=== PATIENT | female | born 1945 | race Caucasian/White ===

== ENCOUNTER → 2024-01-28 11:17 | Outpatient (REF) | payer OTHER, SELFPAY | LOC: HWRAD 11:17 | PROVIDERS: ATTENDING PHYSICIAN Internal Medicine Cardiovascular Disease; FAMILY PHYSICIAN Internal Medicine | DX: Z79.899 Other long term (current) drug therapy (principal); M25.511 Pain in right shoulder | CPT/HCPCS: 71046; 73030 ==

== ENCOUNTER → 2024-02-04 12:34 | Outpatient (REF) | payer OTHER, SELFPAY | LOC: HWRAD 12:34 | PROVIDERS: ATTENDING PHYSICIAN Internal Medicine | DX: M25.511 Pain in right shoulder (principal); M81.0 Age-related osteoporosis without current pathological fracture | CPT/HCPCS: 73200 ==

== ENCOUNTER 2024-02-05 14:23 | Emergency (ER) | payer OTHER, SELFPAY ==
[2024-02-05 14:29] VITALS: BP 116/50
--- NOTE | 2024-02-05 17:19 | ED.GENMED ---
History of Present Illness
General
Chief Complaint: DVT/Possible Blood Clot
Source: patient
Exam Limitations: none
Time Seen by Provider: 02/05/24 17:13
Travel History
Have you had any contact with someone who has COVID-19?: No
Do you have any symptoms of coronavirus? Fever > 100 degrees, chills, cough, shortness of breath, sore throat, loss of taste or smell, muscle aches, or headache?: No
History of Present Illness
History of Present Illness:
See MDM
Past History
Past History
ED Past Medical History: Arrthythmia, COPD, HTN, Hypercholesterolemia and Other
ED Past Surgical History: Cholecystectomy and Orthopedic
Social History
Tobacco: Non-smoker
Alcohol: None
Drug: None
Personal:
Living: half-way
Employment: Retired
Phy Exam
Physical Exam
Physical Exam:
See MDM
Course
Orders/Labs/Results
Orders:
Orders
02/05/24 14:35
Periph Venous Lwr Ext Left US [US Periph Venous LOWER Ext LT] Urgent
Comment:
Reason For Exam: redness, swelling
02/05/24 17:18
Ankle, left 3 view CR [CR Ankle - Left Min 3 Views ] Urgent
Comment:
Reason For Exam: lateral ankle pain and swelling
02/05/24 17:22
Complete Blood Count/With Diff Urgent
Comprehensive Metabolic Panel Urgent
NT-proBNP Urgent
Troponin I Urgent
Uric Acid Urgent
02/05/24 18:38
Doxycycline [Vibramycin] 100 mg PO NOW STA
Abnormal Lab Results
02/05/24
17:22
WBC 15.7 H 10^3/uL
(4.8-10.8)
RBC 3.59 L 10^6/uL
(4.20-5.40)
Hgb 10.8 L g/dL
(12.0-16.0)
Hct 34.7 L %
(37.0-47.0)
MCHC 31.1 L g/dL
(33.0-37.0)
Plt Count 638 H 10^3/uL
(130-400)
Abs Immat Gran (auto) 0.1 H 10^3/uL
(0-0.05)
Absolute Neuts (auto) 12.9 H 10^3/uL
(1.4-6.5)
Absolute Lymphs (auto) 0.9 L 10^3/uL
(1.2-3.4)
Absolute Monos (auto) 1.7 H 10^3/uL
(0.1-0.6)
Immature Gran % 0.6 H %
(0-0.5)
Neutrophils % 82.2 H %
(42.2-75.2)
Lymphocytes % 5.9 L %
(20.5-51.1)
Monocytes % 10.7 H %
(1.7-9.3)
Carbon Dioxide 33 H mmol/L
(22-30)
BUN 24 H mg/dl
(7-17)
Alkaline Phosphatase 183 H U/L
(38-126)
02/05/24 17:22
02/05/24 17:22
Vital Signs
Initial and Last Documented VS:
Initial Vital Signs
Pulse Resp BP Pulse Ox
84 20 116/50 93
02/05/24 14:02/05/24 14:02/05/24 14:02/05/24 14:29
Last Documented Vital Signs
Pulse Resp BP Pulse Ox
84 20 116/50 93
02/05/24 14:02/05/24 14:02/05/24 14:29 02/05/24 14:29
MDM/Problems Addressed
Differential Diagnosis Includes:
HPI and MDM Narrative:
78-year-old female presenting with left calf and ankle swelling. This been ongoing for the past 5 days or so. She denies trauma. She went to urgent care and was sent to the emergency department to rule out DVT.
Given the swelling and pain, will obtain ultrasound to rule out DVT. Patient claims compliance with Eliquis. Will obtain uric acid and x-ray as well.
Physical exam
General: Well appearing and non-toxic
HEENT: protecting airway
Neck: appears supple
CV: No evidence of cyanosis
Resp: No accessory muscle use
Abd: +1 pitting edema in left leg from calf to ankle. Mild erythema noted. Distal pulses intact
Extremities: No deformities
Neuro: alert
Psych: Normal affect
Skin: Intact
Problems Addressed including Acute and Chronic Conditions affecting care:
1. Left leg edema
Acuity: acute
Prognosis: stable
Details: Will obtain ultrasound rule out DVT.
Updates
Ultrasound negative for DVT. Given the leukocytosis, will treat as possible cellulitis with doxycycline. Discussed calling PCP tomorrow
Differential Diagnosis (but not limited to): DVT, congestive heart failure, cellulitis, gout
Testing considered: Blood cultures
Drug therapy (if applicable): OTC meds, please see d/c instruction regarding Rx drugs
Amount and/or Complexity of Data Reviewed
Clinical info obtained from: Patient
External data reviewed: N/A
Labs I independently reviewed (but not limited to): Leukocytosis
Radiology: Ultrasound report reviewed
X-ray independently reviewed: Ankle x-ray negative for fracture
Pulse Ox: not hypoxic
EKG independently reviewed: N/A
Blower Installer: N/A
Critical Care: N/A
Risk of Complication:
Social Determinants of health: Good social support
Discussed with other providers: N/A
Escalation of Care includes Admit/Obs: After being observed in the Emergency Department, pt stable for discharge.
Occasional wrong word or 'sound a like' substitutions may have occurred due to the inherent limitations of voice recognition software. Read the chart carefully and recognize, using context, where substitutions have occurred.
*Critical Care Note
Total Time (30-74mins, 75-104mins- exclusive of procedures): Not Applicable
ED Attending Note
-
Portions of this chart may have been created with voice recognition software.� Occasional wrong word or��sound alike� substitutions may have occurred due to the inherent limitations of voice recognition software.
Discharge Plan
Departure
Patient Disposition: Home (Routine Discharge)
Date of Disposition: 02/05/24
Time of Disposition: 18:40
Patient with high blood pressure during this ER visit?: No
Discharge Problem:
Cellulitis
Instructions: Cellulitis (Skin Infection), Adult (DC)
Prescriptions:
New
doxycycline hyclate 100 mg capsule
100 mg PO BID Qty: 20 0RF
No Action
calcium carbonate 600 MG tablet
600 mg PO DAILY
rosuvastatin 20 MG tablet
20 mg PO QPM
multivitamin with folic acid [Tab-A-Jarad] 1 TABLET tablet
1 tab PO DAILY
amiodarone [Pacerone] 200 MG tablet
200 mg PO DAILY
guaifenesin [Mucus Relief ER] 600 MG tablet extended release 12hr
1,200 mg PO [id number] PRN (Reason: cough,congestion)
pantoprazole 40 MG tablet,delayed release (DR/EC)
40 mg PO DAILY Qty: 30 0RF
metoprolol succinate 50 MG tablet extended release 24 hr
50 mg PO DAILY Qty: 30 0RF
furosemide 40 MG tablet
40 mg PO DAILY
budesonide 0.5 MG/2 ML suspension for nebulization
1 puff inhalation R BID
albuterol sulfate 1 PUFF HFA aerosol inhaler
2 puff inhalation R Q6HPRN PRN (Reason: sob)
acetaminophen [Tylenol Extra Strength] 500 MG tablet
1,000 mg PO Q8HPRN PRN (Reason: mild pain/fever)
benzonatate 100 MG capsule
200 mg PO TIDPRN PRN (Reason: cough)
melatonin 5 MG tablet
5 mg PO HSPRN PRN (Reason: sleep)
Vitamin D
1 tab PO DAILY
warfarin [Jantoven] 5 MG tablet
5 mg PO QPM Qty: 20 0RF
enoxaparin 80 MG/0.8 ML syringe
80 mg S DAILY Qty: 10 0RF
cefdinir 300 mg capsule
300 mg PO BID 10 Days Qty: 20 0RF
cephalexin 500 mg capsule
500 mg PO TID Qty: 30 0RF
Referrals:
Ebony Haynes MD [Family Provider] -
Activity Restrictions/Additional Instructions:
Watch for worsening signs of infection: fever over 100.5', increasing pain, red streaks around wound, swelling, or increasing drainage of pus. If any of these happen, return to ED promptly. Make sure that you take all your antibiotics as directed
and finish your prescription even if you feel better before the bottle is empty
Interventions
Interventions:
ED- Fall Risk Assessment Last Done: 02/05/24 17:18
*ED COVID-19 Vaccine History Last Done: 02/05/24 14:29
ED- Cardiac Assessment Last Done: 02/05/24 17:18
ED- Pulmonary Assessment Last Done: 02/05/24 17:18
ED-Peripheral Vascular Assessment Last Done: 02/05/24 17:18
Discharge Date and Time
Print Language: KHMER
[2024-02-05 17:36] LABS: % Basophils 0.3 % (0-2); % Eosinophils 0.3 % (0-6); % Immature Granulocytes 0.6 % (0-0.5); % Lymphocytes 5.9 % (20.5-51.1); % Monocytes 10.7 % (1.7-9.3); % Neutrophils 82.2 % (42.2-75.2); Absolute Basophils 0.1 10^3/uL (0-0.2); Absolute Eosinophils 0.1 10^3/uL (0-0.7); Absolute Immature Granulocytes 0.1 10^3/uL (0-0.05); Absolute Lymphocytes 0.9 10^3/uL (1.2-3.4); Absolute Monocytes 1.7 10^3/uL (0.1-0.6); Absolute Neutrophils 12.9 10^3/uL (1.4-6.5); Hematocrit 34.7 % (37.0-47.0); Hemoglobin 10.8 g/dL (12.0-16.0); Mean Corp Hgb Conc. 31.1 g/dL (33.0-37.0); Mean Corpuscular Hgb 30.1 pg (27.0-31.0); Mean Corpuscular Volume 96.7 fL (81.0-99.0); Nucleated Red Blood Cells % 0 %; Red Blood Cell Count 3.59 10^6/uL (4.20-5.40); Red Cell Dist. Width 13.7 % (11.5-14.5); White Blood Cell Count 15.7 10^3/uL (4.8-10.8)
[2024-02-05 17:49] LABS: Mean Platelet Volume 8.7 fL (7.4-10.4); Platelet Count 638 10^3/uL (130-400)
[2024-02-05 17:52] LABS: ALT (SGPT) 18 U/L (0-35); AST (SGOT) 32 U/L (14-36); Albumin 4.1 g/dl (3.5-5.0); Alkaline Phosphatase 183 U/L (38-126); Blood Urea Nitrogen 24 mg/dl (7-17); Calcium 9.3 mg/dl (8.4-10.2); Carbon Dioxide 33 mmol/L (22-30); Chloride 99 mmol/L (98-107); Glucose 98 mg/dl (70-99); Potassium 4.4 mmol/L (3.5-5.1); Sodium 140 mmol/L (135-145); Total Bilirubin 0.3 mg/dl (0.2-1.3); Total Protein 7.8 g/dl (6.3-8.2); Uric Acid 5.5 mg/dl (2.5-6.2); eGFR > 60.00
[2024-02-05 18:00] LABS: NT-proBNP 605 pg/ml; Troponin I < 0.012 ng/ml
[2024-02-05] MEDS: VIBRAMYCIN 100 MG PO (18:47)
[2024-02-05 19:02] VITALS: BP 142/74
[2024-02-05 19:08] VITALS: BP 142/74
== END 2024-02-05 19:10 | disposition home or self-care (01) ==
LOC: EMR 14:23
PROVIDERS: EMERGENCY PHYSICIAN Student in an Organized Health Care Education/Training Program; FAMILY PHYSICIAN Internal Medicine
DX: L03.116 Cellulitis of left lower limb (principal); J44.9 Chronic obstructive pulmonary disease, unspecified; I10 Essential (primary) hypertension; E78.00 Pure hypercholesterolemia, unspecified; Z90.49 Acquired absence of other specified parts of digestive tract
CPT/HCPCS: 99284; 73610; 80053; 83880; 84484; 84550; 85025; 93971

== ENCOUNTER → 2024-02-14 11:36 | Outpatient (REF) | payer OTHER, SELFPAY ==
[2024-02-14 15:56] LABS: % Basophils 0.7 % (0-2); % Eosinophils 0.3 % (0-6); % Immature Granulocytes 0.5 % (0-0.5); % Lymphocytes 5.7 % (20.5-51.1); % Monocytes 7.9 % (1.7-9.3); % Neutrophils 84.9 % (42.2-75.2); Absolute Basophils 0.1 10^3/uL (0-0.2); Absolute Immature Granulocytes 0.1 10^3/uL (0-0.05); Absolute Lymphocytes 0.8 10^3/uL (1.2-3.4); Absolute Monocytes 1.2 10^3/uL (0.1-0.6); Absolute Neutrophils 12.4 10^3/uL (1.4-6.5); Hematocrit 35.2 % (37.0-47.0); Mean Corp Hgb Conc. 31.3 g/dL (33.0-37.0); Mean Corpuscular Hgb 29.7 pg (27.0-31.0); Mean Corpuscular Volume 95.1 fL (81.0-99.0); Mean Platelet Volume 9.3 fL (7.4-10.4); Nucleated Red Blood Cells % 0 %; Platelet Count 668 10^3/uL (130-400); Red Cell Dist. Width 13.6 % (11.5-14.5); White Blood Cell Count 14.6 10^3/uL (4.8-10.8)
== END ==
LOC: HWLAB 11:36
PROVIDERS: ATTENDING PHYSICIAN Internal Medicine
DX: L03.116 Cellulitis of left lower limb (principal)
CPT/HCPCS: 36415; 85025

== ENCOUNTER → 2024-02-29 14:35 | Outpatient (REF) | payer OTHER, SELFPAY | LOC: RAD 14:35 | PROVIDERS: ATTENDING PHYSICIAN Internal Medicine | DX: M79.89 Other specified soft tissue disorders (principal) | CPT/HCPCS: 93971 ==

== ENCOUNTER → 2024-03-11 09:48 | Outpatient (REF) | payer OTHER, SELFPAY | LOC: HWRAD 09:48 | PROVIDERS: ATTENDING PHYSICIAN Internal Medicine; FAMILY PHYSICIAN Internal Medicine | DX: R60.0 Localized edema (principal) | CPT/HCPCS: 72194; Q9967 ==

== ENCOUNTER 2024-05-21 16:23 | Outpatient (RCR) | payer OTHER, SELFPAY ==
[2024-05-21 14:35] LABS: % Basophils 0.3 % (0-2); % Eosinophils 0.6 % (0-6); % Immature Granulocytes 0.2 % (0-0.5); % Lymphocytes 3.4 % (20.5-51.1); % Monocytes 7.4 % (1.7-9.3); % Neutrophils 88.1 % (42.2-75.2); Absolute Basophils 0.1 10^3/uL (0-0.2); Absolute Eosinophils 0.1 10^3/uL (0-0.7); Absolute Lymphocytes 0.5 10^3/uL (1.2-3.4); Absolute Monocytes 1.2 10^3/uL (0.1-0.6); Hematocrit 34.4 % (37.0-47.0); Hemoglobin 9.8 g/dL (12.0-16.0); Mean Corp Hgb Conc. 28.5 g/dL (33.0-37.0); Mean Corpuscular Hgb 25.7 pg (27.0-31.0); Mean Corpuscular Volume 90.3 fL (81.0-99.0); Mean Platelet Volume 9.4 fL (7.4-10.4); Platelet Count 458 10^3/uL (130-400); Red Blood Cell Count 3.81 10^6/uL (4.20-5.40); White Blood Cell Count 15.9 10^3/uL (4.8-10.8)
== END 2024-06-16 23:59 | disposition home or self-care (01) ==
LOC: OID 16:23
PROVIDERS: ATTENDING PHYSICIAN Internal Medicine Hematology & Oncology
DX: D50.0 Iron deficiency anemia secondary to blood loss (chronic) (principal); D69.3 Immune thrombocytopenic purpura; D75.838 Other thrombocytosis
CPT/HCPCS: 85025

== ENCOUNTER 2024-05-22 20:50 | Inpatient (IN) | payer OTHER, SELFPAY ==
[2024-05-22] VITALS (13 sets, daily range): BP systolic 107–139; BP diastolic 51–96; BMI 20.2; BMI 19.3
--- NOTE | 2024-05-22 16:36 | ED.GENMED ---
History of Present Illness
General
Chief Complaint: Breathing Problem
Time Seen by Provider: 05/22/24 16:22
History of Present Illness
History of Present Illness:
78-year-old female with history of bronchiectasis and COPD presents the emergency department for evaluation of gradually worsening shortness of breath. According to her family she has severe exertional dyspnea and can essentially perform 0
activities of daily living herself. She is dependent on 5 L of nasal cannula oxygen and essentially bedbound and unable to leave her home as a result of her symptoms. She reports cough is productive of clear mucus. No fevers or chills. Denies
any known weight changes or night sweats.
Past History
Past History
ED Past Medical History: Arrthythmia, COPD, HTN, Hypercholesterolemia and Other
ED Past Surgical History: Cholecystectomy and Orthopedic
Social History
Tobacco: Non-smoker
Alcohol: None
Drug: None
Personal:
Living: shelter
Employment: Retired
Review of Systems
Review of Systems
Allergies reviewed?: Yes
All Other Systems: ROS reviewed and negative except as documented in HPI and ROS
Phy Exam
Physical Exam
Physical Exam:
GEN: Well appearing, NAD, WDWN
Eyes: PERRLA, EOMs intact, no scleral icterus
HENT: NCAT, oral mucosa moist, mild JVD
Lungs: Tachypneic with pursed lip breathing. Clear upper lung ovalle, faint crackles in the bases, no obvious wheezes
Cardiac: RRR, no M/R/G, no peripheral edema. Radial pulses 2+ bilat
Abdomen: S, NT, ND, NABS, no masses or hepatosplenomegaly
Neuro: AO x 3
MSK: No gross deformity or ecchymosis. 2+ pitting edema bilateral lower extremities, right greater than left
Skin: No rashes, petechiae. Normal color, no pallor or jaundice.
Psych: Calm, cooperative, proper hygiene
Scores
Heart Failure Risk
Heart Failure Risk Score: Not Applicable
Course
Orders/Labs/Results
Orders:
Orders
05/22/24 16:27
Electrocardiogram (*1) Urgent
Reason for Study: Other
Other Reason for Exam: Respiratory Distress
EKG- Treatment ONCE
05/22/24 16:29
Complete Blood Count/With Diff Urgent
Comprehensive Metabolic Panel Urgent
Lactic Acid Stat
05/22/24 16:37
CR Chest Portable - 1 View Urgent
Comment:
Reason For Exam: SOB
Reason Study Needs to be Portable: Patient Unstable
05/22/24 16:48
COVID-19 Antigen Urgent
Source: Nasal Swab
NT-proBNP Urgent
Troponin I Urgent
Venous Blood Gas Urgent
%Oxygen/Room Air: 90
05/22/24 19:18
Furosemide [Lasix] 40 mg IV ONCE ONE
05/22/24 20:01
Admit/Transfer Patient As Directed
Co-Sign Provider:
Level of Care: Inpatient admission
Assign to:: Telemetry
Physician / Group: Herb
Diagnosis: Acute on Chronic Hypoxemic Resp Insufficiency, Bronchiectasis, CHF
Reason for Telemetry: Acute Heart Failure
Date to Stop Telemetry: 05/25/24
Time to Stop Telemetry: 11:00
Reason for Hospitalization: Acute on Chronic Hypoxemic Resp Insufficiency, Bronchiectasis, CHF
Expected length of stay greater than two midnights?: Yes
ELOS- Estimated Length of Stay in days: 4
I certify the patient meets the requirements for IP care: Yes
05/22/24 20:02
PRN Pain Medication Management As Directed
May give lesser potent ordered pain med per pt: Yes
preference::
Protocol:: Medication orders for pain may be administered in a
manner that supports deferring to patient preference
when the pt is:
- Requesting an ordered lesser potent pain medication.
Least to most potent pain medications are defined
as: acetaminophen < NSAID < tramadol < opioids
(morphine, oxycodone, hydromorphone).
- Requesting a lesser dose of the same medication IF
ORDERED.
- Requesting a less intrusive route of administration
if both routes are prescribed by the provider (PO <
IV).
05/22/24 20:03
Code Status As Directed
Resuscitation Status: Full Code
05/22/24 20:10
Procalcitonin Urgent
PCT Algorithmm Indication: Respiratory
05/22/24 20:21
US Periph Venous LOWER Ext Jan Urgent
Comment:
Reason For Exam: Swelling, h/o DVT
05/25/24 11:00
DC Protocol for Telemetry ONCE
Abnormal Lab Results
05/22/24 05/22/24
16:29 16:48
WBC 19.1 H 10^3/uL
(4.8-10.8)
RBC 3.63 L 10^6/uL
(4.20-5.40)
Hgb 9.4 L g/dL
(12.0-16.0)
Hct 31.7 L %
(37.0-47.0)
MCH 25.9 L pg
(27.0-31.0)
MCHC 29.7 L g/dL
(33.0-37.0)
RDW 19.5 H %
(11.5-14.5)
Plt Count 450 H 10^3/uL
(130-400)
Abs Immat Gran (auto) 0.2 H 10^3/uL
(0-0.05)
Absolute Neuts (auto) 16.7 H 10^3/uL
(1.4-6.5)
Absolute Lymphs (auto) 0.4 L 10^3/uL
(1.2-3.4)
Absolute Monos (auto) 1.7 H 10^3/uL
(0.1-0.6)
Immature Gran % 0.8 H %
(0-0.5)
Neutrophils % 87.6 H %
(42.2-75.2)
Lymphocytes % 2.2 L %
(20.5-51.1)
VBG pCO2 52 H mmHg
(35-48)
VBG pO2 109 H mmHg
(30-50)
VBG HCO3 33.0 H mmol/L
(22-27)
Glucose 174 H mg/dl
(70-99)
Alkaline Phosphatase 140 H U/L
(38-126)
05/22/24 16:29
05/22/24 16:29
Vital Signs
Initial and Last Documented VS:
Initial Vital Signs
Temp Pulse Resp BP Pulse Ox
99.4 F 97 24 133/51 100
05/22/24 16:15 05/22/24 16:15 05/22/24 16:15 05/22/24 16:15 05/22/24 16:15
Last Documented Vital Signs
Temp Pulse Resp BP Pulse Ox
99.4 F 118 47 120/92 98
05/22/24 16:15 05/22/24 20:18 05/22/24 20:18 05/22/24 20:18 05/22/24 20:00
MDM/Problems Addressed
MDM/Problems Addressed:
Unclear if worsening/progression of chronic disease vs pulmonary vascular congestion exacerbating COPD/bronchiectasis. She is profoundly functionally deconditioned as well. Will admit for diuresis, may need palliative consult
*Critical Care Note
Total Time (30-74mins, 75-104mins- exclusive of procedures): Not Applicable
ED Attending Note
-
Portions of this chart may have been created with voice recognition software.� Occasional wrong word or��sound alike� substitutions may have occurred due to the inherent limitations of voice recognition software.
Discharge Plan
Departure
Patient Disposition: Admit
Date of Disposition: 05/22/24
Time of Disposition: 19:21
Presentation/result/management discussed w/ accepting MD/DO: Hospitalist
Discharge Problem:
Acute CHF
Prescriptions:
No Action
calcium carbonate 600 MG tablet
600 mg PO DAILY
rosuvastatin 20 MG tablet
20 mg PO QPM
amiodarone [Pacerone] 200 MG tablet
200 mg PO DAILY
guaifenesin [Mucus Relief ER] 600 MG tablet extended release 12hr
1,200 mg PO [id number] PRN (Reason: cough,congestion)
pantoprazole 40 MG tablet,delayed release (DR/EC)
40 mg PO DAILY Qty: 30 0RF
metoprolol succinate 50 MG tablet extended release 24 hr
50 mg PO DAILY Qty: 30 0RF
furosemide 40 MG tablet
40 mg PO DAILY
benzonatate 100 MG capsule
200 mg PO TIDPRN PRN (Reason: cough)
alendronate 70 mg Tablet
70 mg PO QWEEK
diphenhydramine-acetaminophen [Tylenol PM Extra Strength] 25-500 mg Tablet
2 tab PO HS
Eliquis 5 mg Tablet
5 mg PO BID
CertaVite Senior 0.4 mg-300 mcg- 250 mcg Tablet
1 tab PO DAILY
Referrals:
Ebony Haynes MD [Family Provider] -
Interventions
Interventions:
*Risk Screen - Suicide Last Done: 05/22/24 16:15
*General Assessment Last Done: 05/22/24 16:15
*Neglect/Abuse Screening Last Done: 05/22/24 16:15
ED- Fall Risk Assessment Last Done: 05/22/24 16:15
*ED COVID-19 Vaccine History Last Done: 05/22/24 16:15
ED- Cardiac Assessment Last Done: 05/22/24 16:15
ED- Pulmonary Assessment Last Done: 05/22/24 16:15
Discharge Date and Time
Print Language: MALTESE
[2024-05-22 16:40] LABS: % Basophils 0.3 % (0-2); % Eosinophils 0.2 % (0-6); % Immature Granulocytes 0.8 % (0-0.5); % Lymphocytes 2.2 % (20.5-51.1); % Monocytes 8.9 % (1.7-9.3); % Neutrophils 87.6 % (42.2-75.2); Absolute Basophils 0.1 10^3/uL (0-0.2); Absolute Immature Granulocytes 0.2 10^3/uL (0-0.05); Absolute Lymphocytes 0.4 10^3/uL (1.2-3.4); Absolute Monocytes 1.7 10^3/uL (0.1-0.6); Absolute Neutrophils 16.7 10^3/uL (1.4-6.5); Hematocrit 31.7 % (37.0-47.0); Hemoglobin 9.4 g/dL (12.0-16.0); Mean Corp Hgb Conc. 29.7 g/dL (33.0-37.0); Mean Corpuscular Hgb 25.9 pg (27.0-31.0); Mean Corpuscular Volume 87.3 fL (81.0-99.0); Mean Platelet Volume 9.7 fL (7.4-10.4); Nucleated Red Blood Cells % 0 %; Platelet Count 450 10^3/uL (130-400); Red Blood Cell Count 3.63 10^6/uL (4.20-5.40); Red Cell Dist. Width 19.5 % (11.5-14.5); White Blood Cell Count 19.1 10^3/uL (4.8-10.8)
[2024-05-22 16:48] LABS: Lactic Acid 1.3 mmol/L (0.7-2.0)
[2024-05-22 16:51] LABS: ALT (SGPT) 15 U/L (0-35); AST (SGOT) 32 U/L (14-36); Albumin 3.9 g/dl (3.5-5.0); Alkaline Phosphatase 140 U/L (38-126); Blood Urea Nitrogen 17 mg/dl (7-17); Carbon Dioxide 28 mmol/L (22-30); Chloride 100 mmol/L (98-107); Estimated Creatinine Clearance 61 ml/min; Glucose 174 mg/dl (70-99); Sodium 143 mmol/L (135-145); Total Bilirubin 0.5 mg/dl (0.2-1.3); Total Protein 7.2 g/dl (6.3-8.2); eGFR > 60.00
[2024-05-22 17:14] LABS: Venous Blood Gas B.E. 7.3 mmol/L (-4 to +4); Venous Blood Gas O2 Sat % 99.8 %; Venous Blood Gas pCO2 52 mmHg (35-48); Venous Blood Gas pH 7.41 (7.32-7.43); Venous Blood Gas pO2 109 mmHg (30-50)
[2024-05-22 17:17] LABS: COVID-19 Antigen Negative (Negative)
[2024-05-22 17:30] LABS: NT-proBNP 2490 pg/ml; Troponin I < 0.012 ng/ml
[2024-05-22] MEDS: LASIX 40 MG IV (19:38)
--- NOTE | 2024-05-22 19:40 | PHANOTE ---
med rec tech(05/22/24)-Patient and family at bedside unable to confirm medications, went to go home and get a booklet of medication information. Will try to check back in an hour, in the meantime list compiled from [facility] records, pharmacy records, and
patient's limited recollection.
--- NOTE | 2024-05-22 20:06 | HPS.HSE ---
Family Physician
-
Family Physician: Ebony Haynes
Chief Complaint
-
SOB
History of Present Illness
Patient is a 78y F with PMH significant for bronchiectasis and chronic hypoxemic respiratory insufficiency who presents to ED complaining of worsening SOB. History obtained from patient and her son at the bedside. Patient states that she has
been on home O2 for about 3 years. She notes that she wears 5 lpm essentially at all times. She has chronic cough productive of small amounts of white / yellow mucus. She denies any fevers / chills, chest pain, etc.
Patient recently was seen by Hematology and has received iron infusions twice over the past 3 weeks. She feels that she has been significantly more SOB following each of these infusions.
Her most recent iron infusion was yesterday and today she presents to the ED for further evaluation.
Son provides additional insight in that patient has been significantly declining over a period of about 5 years. She sleeps poorly due to cough and - as a result - sits upright in a chair 24 hours a day.
She is extremely sedentary and does not leave the home.
She does not follow with a Automated Process Operator. Son states she was supposed to see one about a year ago, but she did not go to that appointment.
She reports worsening LE edema x several weeks. She was prescribed diuretic medications by her PCP - but with no appreciable improvement in her symptoms.
She denies any other recent med changes / additions / etc.
Patient is a lifelong non-smoker, but lived in a home with indoor smoker () for 40+ years.
No occupational or other environmental exposures.
Medical History
Past Medical History
Past Medical History: Reports Other
Additional Past Medical History:
Bronchiectasis
Chronic Hypoxemic Respiratory Insufficiency
Paroxysmal Atrial Fibrillation
History of DVT / PE
Iron Deficiency Anemia
LBBB
Skin Cancer
Outpatient records list a history of Aspergillosis
Past Surgical History: Reports Other
Additional Past Surgical History:
Left Tibia ORIF
Cholecystectomy
Bilateral TKA
Left Hip ORIF
SAGE / DCCV
Cystoscopy / Ureteral Stent
Social History
Tobacco: Non-smoker
Alcohol: None
Drug: None
Living: Alone
Family History
Family History: Not pertinent
Allergies / Home Medications
Allergies reflects when Allergies were last updated in [facility].
Home Medications with original date entered in [facility]
Allergy/Medication List:
Allergies
Allergy/AdvReac Type Severity Reaction Status Date / Time
No Known Allergies Allergy Verified 05/22/24 16:18
Home Medications
calcium carbonate 600 mg PO DAILY Supplement 04/15/19
rosuvastatin 20 mg tablet 20 mg PO QPM High cholesterol 04/15/19
amiodarone 200 mg tablet (Pacerone) 200 mg PO DAILY heart condition 05/27/19
guaifenesin 600 mg tablet, extended release 12 hr (Mucus Relief ER) 1,200 mg PO [id number] PRN cough,congestion 05/27/19
metoprolol succinate 50 mg tablet,extended release 24 hr 50 mg PO DAILY #30 tabs 12/30/19
pantoprazole 40 mg tablet,delayed release 40 mg PO DAILY #30 tabs 12/30/19
furosemide 40 mg tablet 40 mg PO DAILY Fluid retention/Swelling 04/19/21
benzonatate 100 mg capsule 200 mg PO TIDPRN PRN cough 05/11/21
alendronate 70 mg tablet 70 mg PO QWEEK 05/22/24
apixaban 5 mg tablet (Eliquis) 5 mg PO BID 05/22/24
diphenhydramine 25 mg-acetaminophen 500 mg tablet (Tylenol PM Extra Strength) 2 tab PO HS 05/22/24
nbveluub-nvo-awadw acid 0.4 mg-lycopene 300 mcg-lutein 250 mcg tablet (CertaVite Senior) 1 tab PO DAILY 05/22/24
Review of Systems
-
History Source: Patient
A 12 point ROS was completed and negative except as noted: Yes
Constitutional: Reports Fatigue; Denies Fever or Chills
EENT: Denies Sore Throat
Respiratory: Reports Cough and Trouble Breathing; Denies Hemoptysis
Cardiac: Denies Chest Pain, Diaphoresis or Palpitations
Abdomen/GI: Reports Anorexia; Denies Abdominal Pain, Nausea, Vomiting or Diarrhea
: Reports Frequency; Denies Dysuria or Flank Pain
Musculoskeletal: Reports Edema; Denies Joint Pain
Neurological: Denies Dizzy or Headache
Psych: Denies Depression or Anxiety
Physical Exam
Vital Signs
Vital Signs
Temp Pulse Resp BP Pulse Ox
99.4 F 99 20 137/65 98
05/22/24 16:15 05/22/24 19:00 05/22/24 20:00 05/22/24 19:00 05/22/24 19:00
Physical Exam
General: Other (78y F in no acute distress.)
HEENT: Moist mucous membranes, PERRLA and Other (No JVD or HJR)
Respiratory: Other (Decreased BS bilaterally with diffuse insp / exp rales. No rhonchi.)
Cardiac: S1/S2 and Regular Rhythm; No Murmur
GI: Soft, Non Tender, Non Distended and Normal Bowel Sounds
Musculoskeletal: No Clubbing, No Cyanosis and Other (2+ pitting edema to the knees bilaterally.)
Neuro: AO x 3
Laboratory Results
-
05/22/24 16:29
05/22/24 16:29
Laboratory Results
Lactic Acid 1.3 mmol/L (0.7-2.0) 05/22/24 16:29
Total Bilirubin 0.5 mg/dl (0.2-1.3) 05/22/24 16:29
AST 32 U/L (14-36) 05/22/24 16:29
ALT 15 U/L (0-35) 05/22/24 16:29
Alkaline Phosphatase 140 U/L (38-126) H 05/22/24 16:29
Troponin I < 0.012 ng/ml 05/22/24 16:48
Impression/Plan
-
A/P: Patient is a 78y F with PMH significant for bronchiectasis and chronic O2-dependence who presents to ED complaining of worsening SOB and fatigue.
Acute on Chronic Hypoxemic Respiratory Insufficiency
Chronic Bronchiectasis
- Admit for further evaluation and treatment.
- More subjective increase in dyspnea. O2 saturations are adequate on usual home O2 flow (5 lpm) in the ED.
- Unclear etiology of worsening symptoms - ? some degree of volume / CHF - but suspect primarily on the basis of underlying lung disease.
- Treat possible volume overload as noted below - follow for clinical changes.
- Pulmonary evaluation.
- Cough suppressants, mucolytics, nebs, etc.
- ? trial of steroids / chronic abx / etc.
- ? role of amiodarone in worsening lung disease and will hold his for now.
- ? reported history of Aspergillosis - obtain any available records in this regard.
Acute on Chronic HFpEF
- Echo done last in 04/2023 was essentially normal - will update.
- Low dose BID IV Lasix for now and follow for clinical response.
- Follow I/Os, daily weights, etc.
Iron Deficiency Anemia
- Patient recently evaluated by Hematology and has received 2 doses of IV iron thus far.
- Cell counts noted with increase in WBC and Plts appreciated along with decreased Hgb from prior values.
- Heme test stools for any evidence of blood loss. - Update iron studies.
- Follow H&H.
- Consider Hematology evaluation.
Paroxysmal Atrial Fibrillation
- Stable. In NSR at present - has reportedly maintained NSR since [facility] in 2019.
- Hold Amio for now as noted above.
- Continue Eliquis for stroke risk reductions.
- Follow on telemetry.
History of DVT / PE
DVT Prophylaxis
- Check LE dopplers now - unclear patient compliance with meds. History of DVT / PE that occurred in setting of non-compliance with Eliquis (2021).
- Continue Eliquis for now - change to Lovenox if DVT discovered.
Code Status: Full
Dispo: Son states that patient / family would be interested in discussing Palliative Care and / or Hospice options if current scenario reflects progression of her chronic disease.
[2024-05-22 20:53] LABS: Procalcitonin < 0.05 ng/ml (0.0-0.25)
--- NOTE | 2024-05-22 22:30 | PTCARENOTE ---
Receive pt from ER. Pt alert oriented X3, calm and cooperative. Pt was pulled over to her bed from ER stretcher. Pt has dyspnea at rest, dyspnea on exertion, but able to speak in complete sentences. SpO2=99 on 5-6L o2. Pt oriented to the room, call
fitch within reach. Pt on NSR w/BBB on telemonitor. VSS (T=97.6, HR=94, RR=22, NT=543/58). Pt also has a frequent productive cough of white sputum. Pt given Tessalon for cough as per order. Will continue to monitor the pt.
[2024-05-22] MEDS: TYLENOL 650 MG PO (22:50)
[2024-05-22] MEDS: TESSALON PERLES 200 MG PO (22:50)
[2024-05-22 23:16] LABS: Iron 118 ug/dl (37-170)
[2024-05-22 23:26] LABS: Percent Saturation 38 % (20-50); Total Iron Binding Capacity 310 ug/dl (265-497)
[2024-05-22 23:34] LABS: Troponin I < 0.012 ng/ml
[2024-05-22 23:48] LABS: TSH Reflex To Free T4 0.24 uIU/ml (0.47-4.68)
[2024-05-23 00:16] LABS: Free T4 2.12 ng/dl (0.78-2.19)
[2024-05-23 03:46] VITALS: BP 125/67
[2024-05-23 03:59] LABS: Hematocrit 30.7 % (37.0-47.0); Hemoglobin 9.3 g/dL (12.0-16.0); Mean Corp Hgb Conc. 30.3 g/dL (33.0-37.0); Mean Corpuscular Hgb 25.8 pg (27.0-31.0); Mean Platelet Volume 9.7 fL (7.4-10.4); Platelet Count 423 10^3/uL (130-400); Red Blood Cell Count 3.61 10^6/uL (4.20-5.40); Red Cell Dist. Width 19.9 % (11.5-14.5); White Blood Cell Count 16.6 10^3/uL (4.8-10.8)
[2024-05-23 04:18] LABS: Blood Urea Nitrogen 17 mg/dl (7-17); Calcium 8.8 mg/dl (8.4-10.2); Carbon Dioxide 33 mmol/L (22-30); Chloride 99 mmol/L (98-107); Estimated Creatinine Clearance 68 ml/min; Glucose 121 mg/dl (70-99); Potassium 4.1 mmol/L (3.5-5.1); Sodium 143 mmol/L (135-145); eGFR > 60.00
[2024-05-23 04:29] LABS: Troponin I < 0.012 ng/ml
[2024-05-23 05:23] VITALS: BMI 19.1
[2024-05-23] MEDS: VENTOLIN NEBULES 2.5 MG INH ×2 (08:15→13:00)
[2024-05-23] MEDS: PROTONIX 40 MG PO (08:46)
[2024-05-23] MEDS: ELIQUIS 5 MG PO ×2 (08:46→19:41)
[2024-05-23] MEDS: TOPROL XL 50 MG PO (08:47)
[2024-05-23] MEDS: LASIX 20 MG IV ×2 (08:48→16:28)
[2024-05-23] MEDS: TESSALON PERLES 200 MG PO ×2 (08:57→19:46)
[2024-05-23] MEDS: SOLU-MEDROL PF 60 MG IV (09:05)
[2024-05-23 09:28] LABS: Glycohemoglobin (HgbA1c) 5.3 % (4.0-5.6)
--- NOTE | 2024-05-23 09:35 | W.PN.HOSP.TC ---
Today's Communication/Plan
-
Sputum culture
IV steroid
Video swallow
Cough medicine
Might need CT chest
f/w pulmonary and cardiology help
Assessment / Plan
Assessment / Plan
Physical Exam
General: Other (78y F in no acute distress.)
HEENT: Moist mucous membranes, PERRLA and Other (No JVD or HJR)
Respiratory: Other (Decreased BS bilaterally with diffuse insp / exp rales. No rhonchi.)
Cardiac: S1/S2 and Regular Rhythm; No Murmur
GI: Soft, Non Tender, Non Distended and Normal Bowel Sounds
Musculoskeletal: No Clubbing, No Cyanosis and Other (2+ pitting edema to the knees bilaterally.)
Neuro: AO x 3, she followed commands
Psych: calm
Patient is a 78y F with PMH significant for bronchiectasis and chronic O2-dependence who presents to ED complaining of worsening SOB and fatigue.
#Acute on Chronic Hypoxemic Respiratory Insufficiency/ acute respiratory distress. No documented hypoxia on admission
Chronic hypoxic respiratory failure
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
_ No pulmonary follow up despite having history of multiple lung problems.
She is coughing a lot this morning
Will give IV Steroid to hopefully provide relief
Might need CT Chest
Sputum culture
Start on cough medicine around the clock
ok to do video swallow
#Acute on Chronic HFpEF
- Echo done last in 04/2023 was essentially normal - will update.
- Low dose BID IV Lasix for now and follow for clinical response.
- Follow I/Os, daily weights, etc.
#Iron Deficiency Anemia
- Patient recently evaluated by Hematology and has received 2 doses of IV iron thus far.
- Follow H&H.
Paroxysmal Atrial Fibrillation
- Stable. In NSR at present - has reportedly maintained NSR since [facility] in 2019.
- Hold Amio for now as noted above.
- Continue Eliquis for stroke risk reductions.
- Follow on telemetry.
History of DVT / PE
DVT Prophylaxis
- Negative Doppler study - unclear patient compliance with meds. History of DVT / PE that occurred in setting of non-compliance with Eliquis (2021).
- Continue Eliquis for now - change to Lovenox if DVT discovered.
Code Status: Full
Total time spent to see the patient, examine the patient on the floor, review data and lab results, discuss the treatment plan with the patient, nursing staff around 55 minutes
Anticipated Discharge: > 48 hours
Subjective/Interval History
-
Date of Service: May 23, 2024
No chest pain
Cough , sob
Objective Data
-
Labs:
Laboratory Results
05/23/24
03:40
WBC 16.6 H
Hgb 9.3 L
Hct 30.7 L
Plt Count 423 H
Sodium 143
Potassium 4.1
Chloride 99
Carbon Dioxide 33 H
BUN 17
Creatinine 0.6
Glucose 121 H
Calcium 8.8
Vital Signs:
Vital Signs
Temp Pulse Resp BP Pulse Ox
97.5 F 95 20 130/69 99
05/23/24 07:30 05/23/24 08:47 05/23/24 08:27 05/23/24 08:47 05/23/24 08:27
--- NOTE | 2024-05-23 09:44 | CON.PUL ---
Consultation
Consultation Request
Date/Time Consultation Requested: 05/23/202412
Date/Time Consultation Performed: 05/23/2024921
Requesting Provider: Dr. Estevez
Performing Provider: Dr. Munguia
Reason for Consultation: Hypoxia/Bronchiectasis
Medical History
-
Chief Complaint: SOB
History of Present Illness:
78-year-old female with a past medical history of COPD, bronchiectasis, reactive airway disease, chronic HFpEF, chronic bronchitis, history of PVCs, history of aspergillosis, A-fib on Eliquis with history of cardioversion, hypertension,
hyperlipidemia and anxiety who presents with worsening SOB. Her SOB has been worsening over the last 2 months. She is on home oxygen and wears 5 L/min ATC. She receives iron infusions as arranged by hematology, and she reports worsening SOB
following these infusions. She had her most recent iron infusion 1 day [employer]. Per the family, patient has been significantly declining over the last 5 years. She sleeps poorly due to cough and sits upright in a chair 24 hours a day. Patient is
excluding extremely sedentary. Patient also having worsening LE edema for several weeks. Diuretic started as an outpatient by her PCP with no significant improvement in her symptoms. In the ER she was afebrile to 99.4 �F, pulse rate 97, breathing
at 24 breaths/min, BP 133/51 and saturating 100% on nonrebreather. Labs showed leukocytosis to 19.1, anemia to 9.4, elevated platelet count of 450, chronic hypercapnia with pCO2 52, pH 7.41, proBNP elevated at 2490, troponin negative at <0.012, and
COVID antigen negative. CXR showed bronchovascular prominence suspected for interstitial edema superimposed on chronic interstitial lung disease. 40 mg IV Lasix was given in the ER, and patient was admitted to the hospitalist service for further
care. Pulmonary now consulted for additional management/recommendations.
When I saw the patient, she was in bed, on 5 L/min nasal cannula, in no acute distress. She says that she normally brings up phlegm and can fill up at least half a cup�1 cup/day. Her phlegm is normally clear and this is not changed over the last
several days/weeks. She also has occasional wheezing and that is also at baseline. She endorses SOB with activity and when laying flat. She denies chest pain, KERN, abdominal pain, nausea, vomiting, fevers or chills.
Of note patient follows with us in the office with last visit on 01/31/[address] Cantrell. She has a chronic cough with bronchiectasis, upper airway cough syndrome, and reactive airway disease. Her bronchiectasis is diffuse and she had evidence
of bronchial wall thickening with scattered nodular opacities on CTA chest from 12/2021. She has mixed obstructive and restrictive lung disease seen on spirometry. She was on DuoNebs + budesonide at the time. She has a history of emphysema with
normal alpha-1 antitrypsin level. She has a remote history of tobacco use, smoking <1 PPD and quit at age 20. She has a history of A-fib and is on amiodarone. Also history of retained secretions, particularly in the morning, and was on Mucinex
and was using an Acapella. She had been intolerant to vest therapy in the past. She has GERD and is prescribed pantoprazole. Last PFT from January 2021 showed severe COPD with a concomitant moderate restrictive lung defect. She was unable to perform
diffusing capacity maneuver. She was to follow-up with Dr. Cantrell in 6 months but she was lost to follow-up. She does have an upcoming appointment on 05/28/2024.
PMHx: History of squamous of carcinoma s/p Mohs procedure (2019), history of aspergillosis, A-fib on Eliquis with history of cardioversion, history of left-sided hydronephrosis, hypertension, anxiety, hyperlipidemia, history of chronic cough/chronic
bronchitis, history of PVCs, history of LBBB, chronic HFpEF, hiatal hernia, bronchiectasis intolerant to vest therapy in the past, reactive airway disease
PSHx: Left left tibia surgery (2014), cholecystectomy, bilateral knee replacements, history of SAGE with cardioversion (March 2019), cystoscopy with left retrograde pyelogram, ureteroscopy, laser lithotripsy + stent insertion (May 2019), left
hip ORIF (April 2021)
Past Medical History
Past Medical History: Other (Above as per HPI)
Past Surgical History: Other (Above as per HPI)
Social History
Tobacco: Former Smoker (Quit at age 20 and smoked <1 PPD)
Alcohol: None
Drug: None
Personal:
Living: With Family
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
Family History
Family History: Other (Father: Alzheimer's dementia - at age 90 of natural causes; mother: Stroke -mother at age 94 of natural causes)
Allergies / Home Medications
Allergies
Allergy/AdvReac Type Severity Reaction Status Date / Time
No Known Allergies Allergy Verified 05/22/24 16:18
Home Medications
�Medication �Instructions �Recorded �Confirmed �Last Taken �Type
calcium carbonate 600 mg PO DAILY Supplement 04/15/19 05/22/24 12/24/21 08:00 History
rosuvastatin 20 mg tablet 20 mg PO HS High cholesterol 04/15/19 05/22/24 12/23/21 18:00 History
amiodarone 200 mg tablet (Pacerone) 200 mg PO DAILY heart condition 05/27/19 05/22/24 12/24/21 08:00 History
guaifenesin 600 mg tablet, 1,200 mg PO [id number] PRN 05/27/19 05/22/24 12/24/21 08:00 History
extended release 12 hr (Mucus cough,congestion
Relief ER)
pantoprazole 40 mg tablet,delayed 40 mg PO DAILY #30 tabs 12/30/19 05/22/24 12/24/21 08:00 Rx
release
furosemide 40 mg tablet 40 mg PO NOON Fluid 04/19/21 05/22/24 12/24/21 08:00 History
retention/Swelling
benzonatate 100 mg capsule 200 mg PO TIDPRN PRN cough 05/11/21 05/22/24 Unknown History
alendronate 70 mg tablet 70 mg PO QWEEK 05/22/24 05/22/24 Unknown History
apixaban 5 mg tablet (Eliquis) 5 mg PO BID Blood Clot 05/22/24 05/22/24 Unknown History
Prevention/Tx
diphenhydramine 25 2 tab PO HS Sleep 05/22/24 05/22/24 Unknown History
mg-acetaminophen 500 mg tablet
(Tylenol PM Extra Strength)
metoprolol succinate 50 mg 50 mg PO QPM Heart 05/22/24 05/22/24 Unknown History
tablet,extended release 24 hr Disease/Condition
uinxmuuq-vnt-vvgov acid 0.4 1 tab PO DAILY Supplement 05/22/24 05/22/24 Unknown History
mg-lycopene 300 mcg-lutein 250 mcg
tablet (CertaVite Senior)
Review of Systems
-
History Source: Patient
All other systems: Negative unless noted (12 point ROS performed and is negative unless mentioned above.)
Vitals / Labs / Diagnostic Testing
Vital Signs
Temp Pulse Resp BP Pulse Ox
97.5 F 95 20 130/69 99
05/23/24 07:30 05/23/24 08:47 05/23/24 08:27 05/23/24 08:47 05/23/24 08:27
Lab Data
05/23/24 03:40
05/23/24 03:40
Diagnostic Testing:
Physical Exam
-
HEENT: Normocephalic and Anicteric
Cardiovascular: Irregular Rhythm (Irregularly irregular), Peripheral Edema (negative) and Other (Normal heart rate)
Respiratory: Wheeze (negative), Rales (Bilateral), Rhonchi (negative) and Non-Labored Respirations
GI: Soft, Non Distended, Non Tender and Normal Bowel Sounds
Neurology: Awake, Alert and Tremors (negative)
Skin: Warm and Dry
General: Respiratory Distress (negative), Comfortable, Chills (negative) and Sweats (negative)
Assessment
-
Assessment: 78-year-old female with a past medical history of COPD, bronchiectasis, reactive airway disease, chronic HFpEF, chronic bronchitis, history of PVCs, history of aspergillosis, A-fib on Eliquis with history of cardioversion, hypertension,
hyperlipidemia and anxiety who presents with worsening SOB. Her SOB has been worsening over the last 2 months. She is on home oxygen and wears 5 L/min ATC. She receives iron infusions as arranged by hematology, and she reports worsening SOB
following these infusions. She had her most recent iron infusion 1 day [facility]. Per the family, patient has been significantly declining over the last 5 years. She sleeps poorly due to cough and sits upright in a chair 24 hours a day. Patient is
excluding extremely sedentary. Patient also having worsening LE edema for several weeks. Diuretic started as an outpatient by her PCP with no significant improvement in her symptoms. In the ER she was afebrile to 99.4 �F, pulse rate 97, breathing
at 24 breaths/min, BP 133/51 and saturating 100% on nonrebreather. Labs showed leukocytosis to 19.1, anemia to 9.4, elevated platelet count of 450, chronic hypercapnia with pCO2 52, pH 7.41, proBNP elevated at 2490, troponin negative at <0.012, and
COVID antigen negative. CXR showed bronchovascular prominence suspected for interstitial edema superimposed on chronic interstitial lung disease. 40 mg IV Lasix was given in the ER, and patient was admitted to the hospitalist service for further
care. Pulmonary now consulted for additional management/recommendations.
Chronic conditions [employer]: History of squamous of carcinoma s/p Mohs procedure (2019), history of aspergillosis, A-fib on Eliquis with history of cardioversion, history of left-sided hydronephrosis, hypertension, anxiety, hyperlipidemia, history of
chronic cough/chronic bronchitis, history of PVCs, history of LBBB, chronic HFpEF, hiatal hernia, bronchiectasis intolerant to vest therapy in the past, reactive airway disease
Impression:
#Acute on chronic respiratory failure with hypoxia
#Acute decompensated heart failure
#Leukocytosis
#Anemia (baseline Hb 11-12.5g/dL)
#Thrombocytosis, likely reactive
#Subclinical hyperthyroidism
#Chronic hypercapnic respiratory failure, likely due to COPD + alveolar hypoventilation
#COPD in setting of bronchiectasis and chronic bronchitis
Plan:
- Patient is on chronic oxygen at 5 L/min ATC, and initially required nonrebreather during this hospitalization; she is now back to her baseline home O2 dose
- Continue with IV diuresis
- Trend sCr, UOP and check daily weight
- Re-assess volume status daily
- Re-check CXR in next 24-48 hrs to re-assess lung parenchyma s/p diuresis
- PT/OT
- Mucolytics with mucinex
- Would start DuoNebs + budesonide BID, as this is what she was previously prescribed in the outpatient setting by Dr. Cantrell
- prn nebulized bronchodilators for breakthrough symptoms
- She is intolerant to vest therapy in the past; use Acapella for now
- Given her negative procalcitonin, would hold off on antibiotics at this time and continue to trend WBC and monitor for fevers
- Given that she is bringing up copious sputum, check sputum Cx if pt can provide a decent sample
- Maintain SpO2 88-95% with supplemental O2, and wean down as tolerated
- Incentive spirometer encouraged
- Replete electrolytes with K>4, Mg>2
- Maintain euglycemia with goal BG >100 and <180
- DVT ppx
Pulmonary service will continue to follow along. Patient mirna has a follow-up arranged with our office on 05/28/[address] Cantrell at 3 PM. If patient is discharged prior to that date, she should keep that appointment. Otherwise, if still
hospitalized then we will reschedule.
Data:
CXR 05/22/2024:
Increased generalized interstitial prominence with normal heart size, possibly reflecting noncardiogenic interstitial edema superimposed on chronic interstitial lung disease. Otherwise consider superimposed generalized pneumonitis. No focal dense
consolidation.
Total time spent today was 55 minutes for this encounter. Time includes reviewing laboratory test/imaging results, reviewing pertinent medical records, obtaining and reviewing medical history, performing an appropriate exam, ordering medications,
tests and procedures. Time also includes documentation of this encounter, coordinating patient care and communicating with other healthcare professionals. Total time does not include separately billed tests performed on this date of service.
--- NOTE | 2024-05-23 09:52 | CON.CAR ---
Addendum entered and electronically signed by Bryan West MD 05/23/24 15:18:
I saw and examined the patient.
The ROUNDING MACHINE TENDER or PA's note was reviewed and I agree with the note.
Comment: General: Well developed, well nourished in NAD.
Neck: Supple, no JVD, HJR, carotids +2 B/L, no bruits bilaterally.
Heart: Non displaced PMI, RRR, no murmurs, No S3, S4, no rubs.
Lungs: Clear to auscultation bilaterally, no wheeze, rhonchi, rubs bilaterally,
normal expiratory phase.
Abdomen: Normal bowel sounds, soft, non-tender, non-distended.
Extremities: No clubbing, cyanosis or edema bilaterally.
Neuro: Grossly nonfocal, awake, alert and oriented x3.
Jennifer has a history of PAF on chronic Eliquis and amiodarone, left bundle branch block, bronchiectasis on chronic 5 L of oxygen at home, aspergillosis. She presents with worsening dyspnea on exertion and requiring increasing oxygen at home. She
also had cough and lower extremity edema. Cardiology is consulted for acute diastolic CHF.
Will treat with IV Lasix but patient is currently on her current baseline oxygen demands. Suspect most of this is pulmonary related. Pulmonary has been consulted. Continue steroids. Remains in sinus rhythm.
Original Note:
Consultation
Consultation Request
Date/Time Consultation Requested: 05/23/2024
Date/Time Consultation Performed: 05/23/2024
Requesting Provider: Dr. Stahl
Performing Provider: Rosa Medley PA-C for Dr. Bryan West
Reason for Consultation: Shortness of breath, cough, edema
Medical History
-
History of Present Illness:
HPI 05/23/2024:
Patient is a 78-year-old female with past medical history significant for paroxysmal atrial fibrillation on chronic anticoagulation with Eliquis, maintained on amiodarone, left bundle branch block, hypertension, hyperlipidemia, heart failure with
preserved ejection fraction, bronchiectasis on chronic home oxygen therapy, chronic anemia with frequent iron infusions, history of DVT and ITP who presented to emergency department 05/22/2024 with progressively worsening shortness of breath requiring
increased oxygen demand at home, cough and lower extremity edema. Patient has been followed closely by hematology and has received several iron infusions over the last 3 weeks. She has been significantly more short of breath following iron
infusions. Patient is sedentary and per family has physically declined over the last several years. On presentation to emergency department patient was noted to be in atrial fibrillation. Chest x-ray demonstrated increased interstitial markings
suspicious for interstitial edema superimposed on chronic interstitial lung disease., proBNP 2490. Troponin serially negative x 4. Venous Doppler negative for DVT. TSH 0.24 with free T42.12, elevated white count at 19.1. Patient received IV
Lasix and IV steroids in emergency department.
Past medical history:
Paroxysmal atrial fibrillation
Paroxysmal atrial tachycardia
Chronic antiarrhythmic drug therapy with amiodarone
Left bundle branch block
Hypertension
Hyperlipidemia
Heart failure with preserved ejection fraction
Bronchiectasis
History of aspergillosis
Pulmonary hypertension
Maintained on chronic oxygen therapy at home
History of ITP
Iron deficiency anemia with frequent iron infusions
History of left peroneal DVT
History of recurrent UTI
Past Medical History
Past Medical History: Other (See HPI)
Past Surgical History: Other (Left tibia fracture s/p ORIF, cardioversion March 2019, cholecystectomy, bilateral knee replacements laser lithotripsy and ureteral stent placement May 2019, left hip fracture status post ORIF 04/2021)
Social History
Tobacco: Non-Smoker
Alcohol: Occasional
Drug: None
Personal:
Living: With Family
Employment: Retired
Family History
Family History: Other (Father had dementia/Alzheimer's. Mother had stroke)
Allergies / Home Medications
Allergy/AdvReac Type Severity Reaction Status Date / Time
No Known Allergies Allergy Verified 05/22/24 16:18
�Medication �Instructions �Recorded �Confirmed �Type
calcium carbonate 600 mg PO DAILY Supplement 04/15/19 05/22/24 History
rosuvastatin 20 mg tablet 20 mg PO HS High cholesterol 04/15/19 05/22/24 History
amiodarone 200 mg tablet (Pacerone) 200 mg PO DAILY heart condition 05/27/19 05/22/24 History
guaifenesin 600 mg tablet, 1,200 mg PO [id number] PRN 05/27/19 05/22/24 History
extended release 12 hr (Mucus cough,congestion
Relief ER)
pantoprazole 40 mg tablet,delayed 40 mg PO DAILY #30 tabs 12/30/19 05/22/24 Rx
release
furosemide 40 mg tablet 40 mg PO NOON Fluid 04/19/21 05/22/24 History
retention/Swelling
benzonatate 100 mg capsule 200 mg PO TIDPRN PRN cough 05/11/21 05/22/24 History
alendronate 70 mg tablet 70 mg PO QWEEK 05/22/24 05/22/24 History
apixaban 5 mg tablet (Eliquis) 5 mg PO BID Blood Clot 05/22/24 05/22/24 History
Prevention/Tx
diphenhydramine 25 2 tab PO HS Sleep 05/22/24 05/22/24 History
mg-acetaminophen 500 mg tablet
(Tylenol PM Extra Strength)
metoprolol succinate 50 mg 50 mg PO QPM Heart 05/22/24 05/22/24 History
tablet,extended release 24 hr Disease/Condition
gwrfssuo-anu-lurbx acid 0.4 1 tab PO DAILY Supplement 05/22/24 05/22/24 History
mg-lycopene 300 mcg-lutein 250 mcg
tablet (CertaVite Senior)
Review of Systems
-
History Source: Patient
All other systems: Negative unless noted
Physical Exam
Vital Signs
Temp Pulse Resp BP Pulse Ox
97.5 F 95 20 130/69 99
05/23/24 07:30 05/23/24 08:47 05/23/24 08:27 05/23/24 08:47 05/23/24 08:27
GEN: No distress, awake, Ox3, repetitive coughing, wearing oxygen
HEENT: supple, anicteric, mmm
LUNGS: Coarse breath sounds bilaterally with faint expiratory wheezes CTA, no wheezes; 5 L oxygen via nasal cannula
CV: Reg, S1/S2, no murmur, rub or gallop
ABD: soft, BS+, NT/ND
EXT: NO edema, clubbing or cyanosis
NEURO: Gross non-focal
SKIN: No rash, warm, dry, pink
Lab Results
05/23/24 03:40
05/23/24 03:40
Troponin I < 0.012 ng/ml 05/23/24 03:40
Dge-W-Wlwghsrkwtw Pept 2490 pg/ml 05/22/24 16:48
Impression / Plan
-
PCP: Ebony Haynes
Incinerator Plant Laborer: Bonnie Jimenez
Impression:
Presented 05/22/2024 with progressively worsening shortness of breath, cough, fatigue, lower extremity edema.
Acute hypoxic respiratory insufficiency
Acute heart failure with preserved ejection fraction, proBNP 2490
Atrial fibrillation
Leukocytosis
Paroxysmal atrial fibrillation
Paroxysmal atrial tachycardia
Chronic antiarrhythmic drug therapy with amiodarone
Left bundle branch block
Hypertension
Hyperlipidemia
Heart failure with preserved ejection fraction
Bronchiectasis
History of aspergillosis
Pulmonary hypertension
Maintained on chronic oxygen therapy at home
History of ITP
Iron deficiency anemia with frequent iron infusions
History of left peroneal DVT
History of recurrent UTI
Echo 05/10/2023: EF 55 to 60%. Abnormal paradoxical septal motion consistent with left bundle branch block. Mild concentric LVH. Mild to moderate MR. Mild TR with PAP 46 mmHg.
Cardiac catheterization 05/27/2019: No significant coronary artery disease
Plan:
-Presented 05/22/2024 with progressively worsening shortness of breath, cough, fatigue, lower extremity edema.
-Acute hypoxic respiratory insufficiency likely combination due to underlying pulmonary disorder which includes chronic bronchiectasis, Aspergillus, pulmonary hypertension as well as acute on chronic heart failure.
-Acute on chronic heart failure, proBNP 2490
-Patient received 40 mg IV Lasix in emergency department weight down several pounds overnight. Would continue gentle IV diuresis
-Monitor weight and electrolytes with diuresis
-History of paroxysmal atrial fibrillation/PAT. Appears to be mostly in sinus rhythm on telemetry however there are runs of PAT noted. Consider increasing amiodarone to 200 mg twice a day during admission.
-Continue Eliquis
-History of hypertension. Blood pressure stable continue metoprolol
-Video swallow study pending
-Continue conservative management for cough/underlying pulmonary issues per primary service
HPI 05/23/2024:
Patient is a 78-year-old female with past medical history significant for paroxysmal atrial fibrillation on chronic anticoagulation with Eliquis, maintained on amiodarone, left bundle branch block, hypertension, hyperlipidemia, heart failure with
preserved ejection fraction, bronchiectasis on chronic home oxygen therapy, chronic anemia with frequent iron infusions, history of DVT and ITP who presented to emergency department 05/22/2024 with progressively worsening shortness of breath requiring
increased oxygen demand at home, cough and lower extremity edema. Patient has been followed closely by hematology and has received several iron infusions over the last 3 weeks. She has been significantly more short of breath following iron
infusions. Patient is sedentary and per family has physically declined over the last several years. On presentation to emergency department patient was noted to be in atrial fibrillation. Chest x-ray demonstrated increased interstitial markings
suspicious for interstitial edema superimposed on chronic interstitial lung disease., proBNP 2490. Troponin serially negative x 4. Venous Doppler negative for DVT. TSH 0.24 with free T42.12, elevated white count at 19.1. Patient received IV
Lasix and IV steroids in emergency department.
Data Reviewed
-
EKG: Report Reviewed by me, Discussed with Physician and Discussed with Patient
Radiology: Report Reviewed by me, Discussed with Physician and Discussed with Patient
Labs: Labs Reviewed by me, Discussed with Physician and Discussed with Patient
Old Records: Reviewed
[2024-05-23 10:08] LABS: Troponin I < 0.012 ng/ml
--- NOTE | 2024-05-23 10:21 | PTOTSP ---
SPEECH THERAPY SWALLOW EVALUATION:
Patient exhibits signs concerning for oropharyngeal dysphagia, though patient also with frequent, consistent cough at baseline. Unable to rule out aspiration at bedside. Patient remains at high risk for aspiration and related complications given
tenuous respiratory/pulmonary status. WBC elevated. Recommend Videofluoroscopic Swallowing Study to further assess swallow physiology. Recommend patient to be NPO except for necessary medications whole in puree and small single sips of water between
coughing episodes. Aspiration precautions: Do not eat when coughing or SOB; Upright positioning; SMALL single sips; Take breaks for breathing. ST to follow with additional recommendations following VSE. RN administered cough suppressant to decrease
cough frequency. Discussed recommendations with RN and Dr. Stahl.
RECOMMEND:
1) Videofluoroscopic Swallowing Study
2) NPO except for necessary medications whole in puree and small single sips of water between coughing episodes
3) Aspiration precautions: Do not eat when coughing or SOB; Upright positioning; SMALL single sips; Take breaks for breathing
4) ST to follow
[2024-05-23 11:00] VITALS: BP 119/77
--- NOTE | 2024-05-23 12:34 | PTOTSP ---
VIDEOFLUOROSCOPIC SWALLOWING STUDY:
Patient exhibits grossly intact oral swallow function and mild pharyngeal dysphagia, likely chronic related to tenuous respiratory/pulmonary status, chronic cough, and bronchiectasis. Patient exhibited penetration with thin liquids via tsp (deep to
level of vocal folds with associated cough response x1, and trace x1); No aspiration was observed during this evaluation. Patient remains at risk for aspiration and related complications given tenuous respiratory and pulmonary status. Recommend
IDDSI Level 5 Minced and Moist diet, thin liquids. Medications whole in puree/applesauce. Aspiration precautions: Upright positioning; Small single sips/bites; Slow rate of intake; Small single sips; Small bites; Alternate textures; Do NOT eat when
Short of Breath or Coughing; Take breaks during meals for breathing; Partial supervision/assistance; Monitor CXR/labs and lung sounds; D/C oral diet if any decline in respiratory status. Oral care 3x/day. Speech therapy to follow at the acute care
level to assess diet tolerance and modify as appropriate, provide continued diagnostic swallow therapy as appropriate, and provide continued education regarding aspiration risks/precautions.
RECOMMEND:
1) IDDSI Level 5 Minced and Moist diet, thin liquids
2) Medications whole in applesauce/puree
3) Aspiration precautions: Upright positioning; Small single sips/bites; Slow rate of intake; Small single sips; Small bites; Alternate textures; Do NOT eat when Short of Breath or Coughing; Take breaks during meals for breathing; Partial
supervision/assistance; Monitor CXR/labs and lung sounds; D/C oral diet if any decline in respiratory status.
4) Oral care 3x/day
5) ST to follow and monitor diet tolerance
[2024-05-23] MEDS: ROBITUSSIN AC 10 ML PO ×3 (12:36→23:36)
[2024-05-23 15:30] VITALS: BP 121/58
[2024-05-23 16:30] VITALS: BP 121/58
[2024-05-23] MEDS: CRESTOR 20 MG PO (17:29)
[2024-05-23] MEDS: DUONEB 3 ML INH (19:34)
[2024-05-23] MEDS: PULMICORT 0.5 MG INH (19:34)
[2024-05-23 20:02] VITALS: BP 121/58
[2024-05-23 23:44] VITALS: BP 118/60
[2024-05-24 03:51] VITALS: BP 129/65
[2024-05-24 06:00] VITALS: BMI 18.8
[2024-05-24 07:10] VITALS: BP 118/49
[2024-05-24] MEDS: ROBITUSSIN AC 10 ML PO ×4 (07:27→21:30)
[2024-05-24] MEDS: ELIQUIS 5 MG PO ×2 (07:27→19:53)
[2024-05-24] MEDS: TOPROL XL 50 MG PO (07:27)
[2024-05-24] MEDS: PROTONIX 40 MG PO (07:27)
[2024-05-24] MEDS: LASIX 20 MG IV ×2 (07:27→15:25)
[2024-05-24 07:28] LABS: Hematocrit 31.5 % (37.0-47.0); Hemoglobin 9.3 g/dL (12.0-16.0); Mean Corp Hgb Conc. 29.5 g/dL (33.0-37.0); Mean Corpuscular Hgb 25.7 pg (27.0-31.0); Platelet Count 460 10^3/uL (130-400); Red Blood Cell Count 3.62 10^6/uL (4.20-5.40); Red Cell Dist. Width 20.8 % (11.5-14.5); White Blood Cell Count 20.3 10^3/uL (4.8-10.8)
[2024-05-24] MEDS: DUONEB 3 ML INH ×2 (07:49→20:12)
[2024-05-24] MEDS: PULMICORT 0.5 MG INH ×2 (07:49→20:12)
[2024-05-24] MEDS: SOLU-MEDROL PF 60 MG IV (08:00)
[2024-05-24 08:03] LABS: Blood Urea Nitrogen 20 mg/dl (7-17); Calcium 8.9 mg/dl (8.4-10.2); Carbon Dioxide 35 mmol/L (22-30); Chloride 96 mmol/L (98-107); Estimated Creatinine Clearance 66 ml/min; Glucose 107 mg/dl (70-99); Potassium 4.2 mmol/L (3.5-5.1); Sodium 141 mmol/L (135-145); eGFR > 60.00
--- NOTE | 2024-05-24 08:54 | W.PN.HOSP.TC ---
Addendum entered and electronically signed by Sean Stahl MD 05/24/24 14:00:
Addendum
saw the pt again, she reported insomnia, she takes Tylenol PM At home
will try low dose Klonopin
End
Original Note:
Today's Communication/Plan
-
c/w IV Lasix
Resume amiodarone
c/w Robitussin ATC,
Give IV steroid today also
Assessment / Plan
Assessment / Plan
Physical Exam
General: Other (78y F in no acute distress.)
HEENT: Moist mucous membranes, PERRLA and Other (No JVD or HJR)
Respiratory: Other (Decreased BS bilaterally with diffuse insp / exp rales. No rhonchi.)
Cardiac: S1/S2 and Regular Rhythm; No Murmur
GI: Soft, Non Tender, Non Distended and Normal Bowel Sounds
Musculoskeletal: No Clubbing, No Cyanosis and Other (2+ pitting edema to the knees bilaterally.)
Neuro: AO x 3, she followed commands
Psych: calm
Patient is a 78y F with PMH significant for bronchiectasis and chronic O2-dependence who presents to ED complaining of worsening SOB and fatigue.
#Acute on Chronic Hypoxemic Respiratory Insufficiency/ acute respiratory distress. No documented hypoxia on admission
Chronic hypoxic respiratory failure
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
_ No pulmonary follow up despite having history of multiple lung problems.
The cough is less but still bothering her, c/w Robitussin, PRN Tessalon, IV steroid, Nebulizer
Might need CT Chest, defer to pulmonary doctor
Sputum culture if possible
Video swallow did not show significant aspiration
c/w IV Lasix 20 mg BID
F/w pulmonary doctor recommendations
#Acute on Chronic HFpEF
Negative troponin X 4
Echocardiogram showed LVEF 55 to 60%, moderate mitral regurgitation, moderate tricuspid regurgitation. No significant changes from echo in April 2023
- c/w BID IV Lasix for now and follow for clinical response.
- Daily weights, lost 1 Kg
#Iron Deficiency Anemia
- Patient recently evaluated by Hematology and has received 2 doses of IV iron thus far.
- Follow H&H.
Paroxysmal Atrial Fibrillation
Resume Amiodarone
- Continue Eliquis for stroke risk reductions.
- Follow on telemetry.
History of DVT / PE
DVT Prophylaxis
- Negative Doppler study - unclear patient compliance with meds. History of DVT / PE that occurred in setting of non-compliance with Eliquis (2021).
- Continue Eliquis.
Code Status: Full
Total time spent to see the patient, examine the patient on the floor, review data and lab results, discuss the treatment plan with the patient, nursing staff around 57 minutes
Anticipated Discharge: > 48 hours
Subjective/Interval History
-
Date of Service: May 24, 2024
No chest pain
Still cough but less severe
Still mild sob
No fever
Objective Data
-
Labs:
Laboratory Results
05/24/24
06:05
WBC 20.3 H
Hgb 9.3 L
Hct 31.5 L
Plt Count 460 H
Sodium 141
Potassium 4.2
Chloride 96 L
Carbon Dioxide 35 H
BUN 20 H
Creatinine 0.6
Glucose 107 H
Calcium 8.9
Vital Signs:
Vital Signs
Temp Pulse Resp BP Pulse Ox
97.6 F 80 18 118/49 99
05/24/24 07:10 05/24/24 07:51 05/24/24 07:51 05/24/24 07:10 05/24/24 08:40
I&O
05/23/24 05/24/24 05/25/24
06:59 06:59 06:59
Intake Total 720 / 720
Balance 720 / 720
[2024-05-24] MEDS: PACERONE 200 MG PO (09:12)
[2024-05-24] MEDS: TESSALON PERLES 200 MG PO ×2 (09:15→20:05)
--- NOTE | 2024-05-24 09:50 | W.PN.PUL3 ---
Today's Communication / Plan
-
Diuresis
Replete K>4, Mg>2
DuoNebs + budesonide BID
Follow-up sputum culture
Up OOB as tolerated
Sleep aid
Pulmonary service will continue to follow along
Assessment
-
Assessment: 78-year-old female with a past medical history of COPD, bronchiectasis, reactive airway disease, chronic HFpEF, chronic bronchitis, history of PVCs, history of aspergillosis, A-fib on Eliquis with history of cardioversion, hypertension,
hyperlipidemia and anxiety who presents with worsening SOB. Her SOB has been worsening over the last 2 months. She is on home oxygen and wears 5 L/min ATC. She receives iron infusions as arranged by hematology, and she reports worsening SOB
following these infusions. She had her most recent iron infusion 1 day [employer]. Per the family, patient has been significantly declining over the last 5 years. She sleeps poorly due to cough and sits upright in a chair 24 hours a day. Patient is
excluding extremely sedentary. Patient also having worsening LE edema for several weeks. Diuretic started as an outpatient by her PCP with no significant improvement in her symptoms. In the ER she was afebrile to 99.4 �F, pulse rate 97, breathing
at 24 breaths/min, BP 133/51 and saturating 100% on nonrebreather. Labs showed leukocytosis to 19.1, anemia to 9.4, elevated platelet count of 450, chronic hypercapnia with pCO2 52, pH 7.41, proBNP elevated at 2490, troponin negative at <0.012, and
COVID antigen negative. CXR showed bronchovascular prominence suspected for interstitial edema superimposed on chronic interstitial lung disease. 40 mg IV Lasix was given in the ER, and patient was admitted to the hospitalist service for further
care. Pulmonary now consulted for additional management/recommendations.
Chronic conditions [employer]: History of squamous of carcinoma s/p Mohs procedure (2019), history of aspergillosis, A-fib on Eliquis with history of cardioversion, history of left-sided hydronephrosis, hypertension, anxiety, hyperlipidemia, history of
chronic cough/chronic bronchitis, history of PVCs, history of LBBB, chronic HFpEF, hiatal hernia, bronchiectasis intolerant to vest therapy in the past, reactive airway disease
Impression:
#Acute on chronic respiratory failure with hypoxia
#Acute decompensated heart failure
#Leukocytosis
#Anemia (baseline Hb 11-12.5g/dL)
#Thrombocytosis, likely reactive
#Subclinical hyperthyroidism
#Chronic hypercapnic respiratory failure, likely due to COPD + alveolar hypoventilation
#COPD in setting of bronchiectasis and chronic bronchitis
Plan:
- Patient is on chronic oxygen at 5 L/min ATC, and initially required nonrebreather during this hospitalization; she is now back to her baseline home O2 dose
- Continue with IV diuresis
- Trend sCr, UOP and check daily weight
- Re-assess volume status daily
- Re-check CXR tomorrow AM to re-assess lung parenchyma s/p diuresis
- PT/OT
- Mucolytics with mucinex
- Continue DuoNebs + budesonide BID, as this is what she was previously prescribed in the outpatient setting by Dr. Cantrell
- prn nebulized bronchodilators for breakthrough symptoms
- She is intolerant to vest therapy in the past; use Acapella for now
- Given her negative procalcitonin, would hold off on antibiotics at this time and continue to trend WBC and monitor for fevers
- Follow up sputum Cx (submitted today)
- Maintain SpO2 88-95% with supplemental O2, and wean down as tolerated
- Incentive spirometer encouraged
- Replete electrolytes with K>4, Mg>2
- Maintain euglycemia with goal BG >100 and <180
- DVT ppx
Pulmonary service will continue to follow along. Patient already has a follow-up arranged with our office on 05/28/[address] Cantrell at 3:00 PM. If patient is discharged prior to that date, she should keep that appointment. Otherwise, if still
hospitalized then we will reschedule.
Data:
CXR 05/22/2024:
Increased generalized interstitial prominence with normal heart size, possibly reflecting noncardiogenic interstitial edema superimposed on chronic interstitial lung disease. Otherwise consider superimposed generalized pneumonitis. No focal dense
consolidation.
Total time spent today was 35 minutes for this encounter. Time includes reviewing laboratory test/imaging results, reviewing pertinent medical records, obtaining and reviewing medical history, performing an appropriate exam, ordering medications,
tests and procedures. Time also includes documentation of this encounter, coordinating patient care and communicating with other healthcare professionals. Total time does not include separately billed tests performed on this date of service.
Subjective Data
-
Date of Service:
Date of Service: May 24, 2024
Chief Complaint: Pulmonary Follow Up and Dyspnea Follow Up
Subjective:
Seen and evaluated today at bedside. She says she feels similar to yesterday, slept very poorly. She says that she has been sleeping poorly for years though. Currently on 5 L/min nasal cannula saturating 94%. Afebrile overnight. She denies
chest pain, KERN, abdominal pain, nausea, fevers or chills.
Review of Systems
General: Other (Negative unless mentioned above)
Objective Data
Data Reviewed
Vital Signs / I&O / Oxygen:
Vital Signs
Temp Pulse Resp BP Pulse Ox
97.6 F 80 18 118/49 99
05/24/24 07:10 05/24/24 07:51 05/24/24 07:51 05/24/24 07:10 05/24/24 08:40
Intake and Output
05/23/24 05/24/24 05/25/24
06:59 06:59 06:59
Intake Total 720 / 720
Balance 720 / 720
SaO2 99
Nasal Cannula flow liters per 5
minute
Physical Exam
General: Respiratory Distress (negative), Comfortable, Chills (negative) and Sweats (negative)
HEENT: Normocephalic, Anicteric and Moist Mucous Membranes
Cardiovascular: S1-S2 and Peripheral Edema (negative)
Respiratory: Wheeze (negative), Crackles (Bilaterally), Rhonchi (negative) and Non-Labored Respirations
GI: Soft, Non Distended, Non Tender and Normal Bowel Sounds
Neurology: AO x 3 and Tremors (negative)
Skin: Warm, Dry and Jaundice (negative)
Labs/Micro/Reports
Lab Data
05/24/24 06:05
05/24/24 06:05
[2024-05-24 11:05] VITALS: BP 112/48
--- NOTE | 2024-05-24 12:46 | W.PN.CARDCBS ---
Today's Communication / Plan
-
Continue IV Lasix
Impression / Plan
-
PCP: Ebony Haynes
Lime Filter Operator: Bonnie Jimenez
Impression:
Presented 05/22/2024 with progressively worsening shortness of breath, cough, fatigue, lower extremity edema.
Acute hypoxic respiratory insufficiency
Acute heart failure with preserved ejection fraction, proBNP 2490
Atrial fibrillation
Leukocytosis
Paroxysmal atrial fibrillation
Paroxysmal atrial tachycardia
Chronic antiarrhythmic drug therapy with amiodarone
Left bundle branch block
Hypertension
Hyperlipidemia
Heart failure with preserved ejection fraction
Bronchiectasis
History of aspergillosis
Pulmonary hypertension
Maintained on chronic oxygen therapy at home
History of ITP
Iron deficiency anemia with frequent iron infusions
History of left peroneal DVT
History of recurrent UTI
Echo 05/10/2023: EF 55 to 60%. Abnormal paradoxical septal motion consistent with left bundle branch block. Mild concentric LVH. Mild to moderate MR. Mild TR with PAP 46 mmHg.
Cardiac catheterization 05/27/2019: No significant coronary artery disease
Plan:
Suspect significant component of shortness of breath is due to pulmonary etiology
However weight has decreased 2 pounds on IV Lasix and will continue IV Lasix
Continue IV steroids for bronchiectasis
HPI 05/23/2024:
Patient is a 78-year-old female with past medical history significant for paroxysmal atrial fibrillation on chronic anticoagulation with Eliquis, maintained on amiodarone, left bundle branch block, hypertension, hyperlipidemia, heart failure with
preserved ejection fraction, bronchiectasis on chronic home oxygen therapy, chronic anemia with frequent iron infusions, history of DVT and ITP who presented to emergency department 05/22/2024 with progressively worsening shortness of breath requiring
increased oxygen demand at home, cough and lower extremity edema. Patient has been followed closely by hematology and has received several iron infusions over the last 3 weeks. She has been significantly more short of breath following iron
infusions. Patient is sedentary and per family has physically declined over the last several years. On presentation to emergency department patient was noted to be in atrial fibrillation. Chest x-ray demonstrated increased interstitial markings
suspicious for interstitial edema superimposed on chronic interstitial lung disease., proBNP 2490. Troponin serially negative x 4. Venous Doppler negative for DVT. TSH 0.24 with free T42.12, elevated white count at 19.1. Patient received IV
Lasix and IV steroids in emergency department.
Progress Note - [employer] Operator
Subjective
Date of Service: May 24, 2024
She complains of weakness.
Objective
Labs:
05/24/24 06:05
05/24/24 06:05
Labs
Hgb 9.3 g/dL (12.0-16.0) L 05/24/24 06:05
Hct 31.5 % (37.0-47.0) L 05/24/24 06:05
Plt Count 460 10^3/uL (130-400) H 05/24/24 06:05
Sodium 141 mmol/L (135-145) 05/24/24 06:05
Potassium 4.2 mmol/L (3.5-5.1) 05/24/24 06:05
BUN 20 mg/dl (7-17) H 05/24/24 06:05
Creatinine 0.6 mg/dL (0.6-1.0) 05/24/24 06:05
Glucose 107 mg/dl (70-99) H 05/24/24 06:05
Troponins
05/22/24 05/22/24 05/23/24
16:48 22:53 03:40
Troponin I < 0.012 < 0.012 < 0.012
05/23/24
09:33
Troponin I < 0.012
Vital Signs and I&O:
Vital Signs
Temp Pulse Resp BP Pulse Ox
97.9 F 79 20 112/48 97
05/24/24 11:05 05/24/24 11:05 05/24/24 11:05 05/24/24 11:05 05/24/24 11:05
Vital Signs
Temp Pulse Resp BP Pulse Ox
97.9 F 79 20 112/48 97
05/24/24 11:05 05/24/24 11:05 05/24/24 11:05 05/24/24 11:05 05/24/24 11:05
Intake & Output
05/22/24 05/23/24 05/24/24 05/25/24
06:59 06:59 06:59 06:59
Intake Total 720 / 720
Balance 720 / 720
Physical Exam
Physical Exam
General: Appears chronically ill
Neck: Supple, no JVD, HJR, carotids +2 B/L, no bruits bilaterally.
Heart: Non displaced PMI, RRR, no murmurs, No S3, S4, no rubs.
Lungs: Scattered rhonchi
Abdomen: Normal bowel sounds, soft, non-tender, non-distended.
Extremities: No clubbing, cyanosis or edema bilaterally.
Neuro: Grossly nonfocal, awake, alert and oriented x3.
--- NOTE | 2024-05-24 13:26 | CM ---
Patient seen bedside.
IA completed.
Patient lives alone, 2 story home with 3 steps in then 6 steps up.
Patient on chronic oxygen 5-6 liters. not sure of supplier, says portable is broken.
No hx VN but agreeable if needed. Options reviewed. Agreeable to [facility] if needed.
Was in Dwain's home in the past and agreeable to return if therapy needed.
Son will transport home.
PCP: Dr hernandez
Pharmacy: [facility]
Plan: home with possible VN vs skilled.
May need additional oxygen for home.
[2024-05-24 13:35] VITALS: BMI 18.8
[2024-05-24 15:05] VITALS: BP 134/61
[2024-05-24] MEDS: CRESTOR 20 MG PO (17:58)
[2024-05-24 19:49] VITALS: BP 135/63
[2024-05-24] MEDS: KLONOPIN 0.25 MG PO (21:30)
[2024-05-24] MEDS: MELATONIN 10 MG PO (21:30)
[2024-05-24 23:30] VITALS: BP 126/60
[2024-05-24] MEDS: TYLENOL 650 MG PO (23:31)
[2024-05-25] VITALS (8 sets, daily range): BP systolic 108–129; BP diastolic 52–66; PULSE 62–70; O2SAT 98; BMI 18.8
[2024-05-25] MEDS: DUONEB 3 ML INH ×2 (07:45→20:15)
[2024-05-25] MEDS: PULMICORT 0.5 MG INH ×2 (07:45→20:15)
[2024-05-25] MEDS: ELIQUIS 5 MG PO ×2 (08:32→19:20)
[2024-05-25] MEDS: LASIX 20 MG IV (08:32)
[2024-05-25] MEDS: PROTONIX 40 MG PO (08:32)
[2024-05-25] MEDS: PACERONE 200 MG PO (08:32)
[2024-05-25] MEDS: TOPROL XL 50 MG PO (08:32)
[2024-05-25] MEDS: ROBITUSSIN AC 10 ML PO ×4 (08:33→21:42)
--- NOTE | 2024-05-25 09:12 | W.PN.HOSP.TC ---
Addendum entered and electronically signed by Sean Stahl MD 05/25/24 14:03:
Addendum
Sputum positive for Proteus, will start the patient on IV cefepime. Likely community-acquired pneumonia, present on admission although normal procalcitonin
Discussed with patient and later son Maximiliano Regarding goal of care and prognosis. Patient is lucid and fully oriented. Patient is DNR, with symptoms management and control as a primary focus.
End
Original Note:
Today's Communication/Plan
-
She does not feel improvement despite Nebs, Lasix, IV SoluMedrol, reports less phlegm
Chest x ray today,
I did not give IV steroid today, await x ray, might do CT chest
d/w her code status, will reach out to her son
Assessment / Plan
Assessment / Plan
Physical Exam
General: Other (78y F in no acute distress.)
HEENT: Moist mucous membranes, PERRLA and Other (No JVD or HJR)
Respiratory: Other (Decreased BS bilaterally with diffuse insp / exp rales. No rhonchi.)
Cardiac: S1/S2 and Regular Rhythm; No Murmur
GI: Soft, Non Tender, Non Distended and Normal Bowel Sounds
Musculoskeletal: No Clubbing, No Cyanosis and Other (2+ pitting edema to the knees bilaterally.)
Neuro: AO x 3, she followed commands
Psych: calm
Patient is a 78y F with PMH significant for bronchiectasis and chronic O2-dependence who presents to ED complaining of worsening SOB and fatigue.
#Acute on Chronic Hypoxemic Respiratory Insufficiency/ acute respiratory distress. No documented hypoxia on admission
Chronic hypoxic respiratory failure
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
_ No pulmonary follow up despite having history of multiple lung problems.
The cough is less with less secretions, c/w Robitussin, PRN Tessalon, Nebulizer
s/p IV steroid
Repeat chest x ray today
Might need CT Chest, defer to pulmonary doctor
Sputum culture if possible
Video swallow did not show significant aspiration
s/p IV Lasix 20 mg BID, will change to oral.
F/w pulmonary doctor recommendations
#Acute on Chronic HFpEF
Negative troponin X 4
Echocardiogram showed LVEF 55 to 60%, moderate mitral regurgitation, moderate tricuspid regurgitation. No significant changes from echo in April 2023
Had iV Lasix and lost weight but she does not feel improvement
- Daily weights, lost 4 Kg
#Iron Deficiency Anemia
- Patient recently evaluated by Hematology and has received 2 doses of IV iron thus far.
- Followed H&H.
Paroxysmal Atrial Fibrillation
Resume Amiodarone
- Continue Eliquis for stroke risk reductions.
- Followed on telemetry.
History of DVT / PE
DVT Prophylaxis
- Negative Doppler study - unclear patient compliance with meds. History of DVT / PE that occurred in setting of non-compliance with Eliquis (2021).
- Continue Eliquis.
Code Status: I d/w pt the code status, explained CPR, she does not want heroic measures, will reach out to her son
Total time spent to see the patient, examine the patient on the floor, review data and lab results, discuss the treatment plan with the patient, nursing staff around 57 minutes
Anticipated Discharge: > 48 hours
Subjective/Interval History
-
Date of Service: May 25, 2024
She feels the same
no chest pain
No fevers
Objective Data
-
Vital Signs:
Vital Signs
Temp Pulse Resp BP Pulse Ox
97.4 F 80 24 113/58 99
05/25/24 07:55 05/25/24 07:55 05/25/24 07:55 05/25/24 07:55 05/25/24 07:55
I&O
05/24/24 05/25/24 05/26/24
06:59 06:59 06:59
Intake Total 720 / 720 600 / 600
Balance 720 / 720 600 / 600
--- NOTE | 2024-05-25 09:57 | W.PN.PUL3 ---
Today's Communication / Plan
-
Diuresis
Replete K>4, Mg>2
DuoNebs + budesonide BID
Follow-up sputum culture sensitivities (growing Proteus)
Cefepime started - would give 5 to 7 days worth of ABx
Up OOB as tolerated
Sleep aid
PT/OT --> rec'd skilled rehab upon discharge
Pulmonary service will continue to follow along
Assessment
-
Assessment: 78-year-old female with a past medical history of COPD, bronchiectasis, reactive airway disease, chronic HFpEF, chronic bronchitis, history of PVCs, history of aspergillosis, A-fib on Eliquis with history of cardioversion, hypertension,
hyperlipidemia and anxiety who presents with worsening SOB. Her SOB has been worsening over the last 2 months. She is on home oxygen and wears 5 L/min ATC. She receives iron infusions as arranged by hematology, and she reports worsening SOB
following these infusions. 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 Per the family, patient has been significantly declining over the last 5 years. She sleeps poorly due to cough and sits upright in a chair 24 hours a day. Patient is
excluding extremely sedentary. Patient also having worsening LE edema for several weeks. Diuretic started as an outpatient by her PCP with no significant improvement in her symptoms. In the ER she was afebrile to 99.4 �F, pulse rate 97, breathing
at 24 breaths/min, BP 133/51 and saturating 100% on nonrebreather. Labs showed leukocytosis to 19.1, anemia to 9.4, elevated platelet count of 450, chronic hypercapnia with pCO2 52, pH 7.41, proBNP elevated at 2490, troponin negative at <0.012, and
COVID antigen negative. CXR showed bronchovascular prominence suspected for interstitial edema superimposed on chronic interstitial lung disease. 40 mg IV Lasix was given in the ER, and patient was admitted to the hospitalist service for further
care. Pulmonary now consulted for additional management/recommendations.
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
chronic cough/chronic bronchitis, history of PVCs, history of LBBB, chronic HFpEF, hiatal hernia, bronchiectasis intolerant to vest therapy in the past, reactive airway disease
Impression:
#Acute on chronic respiratory failure with hypoxia
#Acute decompensated heart failure
#Leukocytosis
#Anemia (baseline Hb 11-12.5g/dL)
#Thrombocytosis, likely reactive
#Subclinical hyperthyroidism
#Chronic hypercapnic respiratory failure, likely due to COPD + alveolar hypoventilation
#COPD in setting of bronchiectasis and chronic bronchitis
Plan:
- Patient is on chronic oxygen at 5 L/min ATC, and initially required nonrebreather during this hospitalization; she is now back to her baseline home O2 dose
- CXR performed today shows slightly improved degree of interstitial opacities/bronchovascular markings indicating improved volume status
- Continue with diuresis --> cardiology has changed to PO lasix
- Trend sCr, UOP and check daily weight
- Re-assess volume status daily
- PT/OT
- Mucolytics with mucinex
- Continue DuoNebs + budesonide BID, as this is what she was previously prescribed in the outpatient setting by Dr. Cantrell
- prn nebulized bronchodilators for breakthrough symptoms
- She is intolerant to vest therapy in the past; use Acapella for now
- Initially, Abx were held given her negative procalcitonin
- Sputum culture from 05/24/2024 is growing Proteus spp --> cefepime started
- Continue to trend WBC and monitor for fevers
- Maintain SpO2 88-95% with supplemental O2, and wean down as tolerated
- Incentive spirometer encouraged
- Replete electrolytes with K>4, Mg>2
- Maintain euglycemia with goal BG >100 and <180
- PT/OT, CM consult as she says she lives alone and is not comfortable being discharged back home
- DVT ppx
Pulmonary service will continue to follow along. Patient already has a follow-up arranged with our office on 05/28/[address] Cantrell at 3:00 PM. If patient is discharged prior to that date, she should keep that appointment. Otherwise, if still
hospitalized then we will reschedule.
Data:
CXR 05/22/2024:
Increased generalized interstitial prominence with normal heart size, possibly reflecting noncardiogenic interstitial edema superimposed on chronic interstitial lung disease. Otherwise consider superimposed generalized pneumonitis. No focal dense
consolidation.
Total time spent today was 35 minutes for this encounter. Time includes reviewing laboratory test/imaging results, reviewing pertinent medical records, obtaining and reviewing medical history, performing an appropriate exam, ordering medications,
tests and procedures. Time also includes documentation of this encounter, coordinating patient care and communicating with other healthcare professionals. Total time does not include separately billed tests performed on this date of service.
Subjective Data
-
Date of Service:
Date of Service: May 25, 2024
Chief Complaint: Pulmonary Follow Up and Dyspnea Follow Up
Subjective:
Seen and evaluated today at bedside. Melatonin last night helped her sleep. She is on 5 L/min nasal cannula breathing comfortably. She feels well today. She is sitting in chair in no acute distress. She denies chest pain, KERN, abdominal pain,
fevers or chills.
Review of Systems
General: Other (Negative unless mentioned above)
Objective Data
Data Reviewed
Vital Signs / I&O / Oxygen:
Vital Signs
Temp Pulse Resp BP Pulse Ox
97.6 F 66 24 108/52 100
05/25/24 15:32 05/25/24 15:32 05/25/24 15:32 05/25/24 15:32 05/25/24 15:32
Intake and Output
05/24/24 05/25/24 05/26/24
06:59 06:59 06:59
Intake Total 720 / 720 600 / 600 1200 / 1200
Balance 720 / 720 600 / 600 1200 / 1200
SaO2 100
Nasal Cannula flow liters per 5
minute
Physical Exam
General: Respiratory Distress (negative), Comfortable, Chills (negative) and Sweats (negative)
HEENT: Normocephalic, Anicteric and Moist Mucous Membranes
Cardiovascular: S1-S2 and Peripheral Edema (negative)
Respiratory: Wheeze (negative), Crackles (Bilaterally), Rhonchi (negative) and Non-Labored Respirations
GI: Soft, Non Distended, Non Tender and Normal Bowel Sounds
Neurology: AO x 3 and Tremors (negative)
Skin: Warm, Dry and Jaundice (negative)
Labs/Micro/Reports
Lab Data
05/24/24 06:05
05/24/24 06:05
Microbiology
05/24/24 12:12 Sputum Respiratory Culture - Preliminary
Proteus species
05/24/24 12:12 Sputum Gram Stain - Preliminary
--- NOTE | 2024-05-25 11:18 | W.PN.CARDCBS ---
Today's Communication / Plan
-
Stable cardiology status from a CHF standpoint
Changed to Lasix 40 mg daily and sign off
Impression / Plan
-
PCP: Ebony Haynes
Cab Starter: Bonnie Jimenez
Impression:
Presented 05/22/2024 with progressively worsening shortness of breath, cough, fatigue, lower extremity edema.
Acute hypoxic respiratory insufficiency
Acute heart failure with preserved ejection fraction, proBNP 2490
Atrial fibrillation
Leukocytosis
Paroxysmal atrial fibrillation
Paroxysmal atrial tachycardia
Chronic antiarrhythmic drug therapy with amiodarone
Left bundle branch block
Hypertension
Hyperlipidemia
Heart failure with preserved ejection fraction
Bronchiectasis
History of aspergillosis
Pulmonary hypertension
Maintained on chronic oxygen therapy at home
History of ITP
Iron deficiency anemia with frequent iron infusions
History of left peroneal DVT
History of recurrent UTI
Echo 05/10/2023: EF 55 to 60%. Abnormal paradoxical septal motion consistent with left bundle branch block. Mild concentric LVH. Mild to moderate MR. Mild TR with PAP 46 mmHg.
Cardiac catheterization 05/27/2019: No significant coronary artery disease
Plan:
Weight seems to have plateaued
Seems to be stable from cardiology viewpoint with no obvious CHF
Will change Lasix to 40 mg daily
Continue IV steroids for bronchiectasis
Will sign off, call with questions
HPI 05/23/2024:
Patient is a 78-year-old female with past medical history significant for paroxysmal atrial fibrillation on chronic anticoagulation with Eliquis, maintained on amiodarone, left bundle branch block, hypertension, hyperlipidemia, heart failure with
preserved ejection fraction, bronchiectasis on chronic home oxygen therapy, chronic anemia with frequent iron infusions, history of DVT and ITP who presented to emergency department 05/22/2024 with progressively worsening shortness of breath requiring
increased oxygen demand at home, cough and lower extremity edema. Patient has been followed closely by hematology and has received several iron infusions over the last 3 weeks. She has been significantly more short of breath following iron
infusions. Patient is sedentary and per family has physically declined over the last several years. On presentation to emergency department patient was noted to be in atrial fibrillation. Chest x-ray demonstrated increased interstitial markings
suspicious for interstitial edema superimposed on chronic interstitial lung disease., proBNP 2490. Troponin serially negative x 4. Venous Doppler negative for DVT. TSH 0.24 with free T42.12, elevated white count at 19.1. Patient received IV
Lasix and IV steroids in emergency department.
Progress Note - Cab Starter
Subjective
Date of Service: May 25, 2024
Complains of feeling weak
Objective
Labs:
05/24/24 06:05
05/24/24 06:05
Labs
Hgb 9.3 g/dL (12.0-16.0) L 05/24/24 06:05
Hct 31.5 % (37.0-47.0) L 05/24/24 06:05
Plt Count 460 10^3/uL (130-400) H 05/24/24 06:05
Sodium 141 mmol/L (135-145) 05/24/24 06:05
Potassium 4.2 mmol/L (3.5-5.1) 05/24/24 06:05
BUN 20 mg/dl (7-17) H 05/24/24 06:05
Creatinine 0.6 mg/dL (0.6-1.0) 05/24/24 06:05
Glucose 107 mg/dl (70-99) H 05/24/24 06:05
Troponins
05/22/24 05/22/24 05/23/24
16:48 22:53 03:40
Troponin I < 0.012 < 0.012 < 0.012
05/23/24
09:33
Troponin I < 0.012
Vital Signs and I&O:
Vital Signs
Temp Pulse Resp BP Pulse Ox
97.5 F 73 24 129/56 100
05/25/24 11:16 05/25/24 11:16 05/25/24 11:16 05/25/24 11:16 05/25/24 11:16
Vital Signs
Temp Pulse Resp BP Pulse Ox
97.5 F 73 24 129/56 100
05/25/24 11:16 05/25/24 11:16 05/25/24 11:16 05/25/24 11:16 05/25/24 11:16
Intake & Output
05/23/24 05/24/24 05/25/24 05/26/24
06:59 06:59 06:59 06:59
Intake Total 720 / 720 600 / 600
Balance 720 / 720 600 / 600
Physical Exam
Physical Exam
General: Well developed, well nourished in NAD.
Neck: Supple, no JVD, HJR, carotids +2 B/L, no bruits bilaterally.
Heart: Non displaced PMI, RRR, no murmurs, No S3, S4, no rubs.
Lungs: Scattered rhonchi
Extremities: No clubbing, cyanosis or edema bilaterally.
Neuro: Grossly nonfocal, awake, alert and oriented x3.
[2024-05-25] MEDS: MAXIPIME 1000 MG IV ×2 (13:58→21:42)
[2024-05-25] MEDS: STERILE WATER FOR INJECTION 10 ML IV ×2 (13:58→21:43)
[2024-05-25] MEDS: CRESTOR 20 MG PO (16:52)
[2024-05-25] MEDS: TESSALON PERLES 200 MG PO (19:21)
[2024-05-25] MEDS: KLONOPIN 0.25 MG PO (21:42)
[2024-05-25] MEDS: MELATONIN 10 MG PO (21:42)
[2024-05-26] VITALS (7 sets, daily range): BP systolic 110–128; BP diastolic 48–61; BMI 19.4
[2024-05-26] MEDS: MAXIPIME 1000 MG IV ×2 (05:15→13:50)
[2024-05-26] MEDS: STERILE WATER FOR INJECTION 10 ML IV ×2 (05:15→13:50)
[2024-05-26] MEDS: DUONEB 3 ML INH ×2 (07:20→19:53)
[2024-05-26] MEDS: PULMICORT 0.5 MG INH ×2 (07:20→19:53)
--- NOTE | 2024-05-26 08:16 | W.PN.HOSP.TC ---
Addendum entered and electronically signed by Thiago Guan MD 05/26/24 15:04:
Currently on IV cefepime for Proteus in sputum. Will change to Augmentin.
Original Note:
Today's Communication/Plan
-
see bold
Assessment / Plan
Assessment / Plan
Patient is a 78y F with PMH significant for bronchiectasis and chronic O2-dependence who presents to ED complaining of worsening SOB and fatigue.
#Acute on Chronic Hypoxemic Respiratory Insufficiency/ acute respiratory distress. No documented hypoxia on admission
Chronic hypoxic respiratory failure
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
Video swallow did not show significant aspiration. Speech pathology recommends soft/bite-size diet with thin liquids
Appreciate pulmonology input, continue budesonide and bronchodilators
Has appointment with pulmonology on 05/28/[address] Cantrell at 3:00 PM
Currently satting 100% on 5 L, wean as tolerated
#Acute on Chronic HFpEF
Negative troponin X 4
Echocardiogram showed LVEF 55 to 60%, moderate mitral regurgitation, moderate tricuspid regurgitation. No significant changes from echo in April 2023
Appreciate cardiology input, status post Lasix 20 mg IV twice daily, currently on Lasix 40 mg p.o. daily
#Iron Deficiency Anemia
- Patient recently evaluated by Hematology and has received 2 doses of IV iron thus far.
- Followed H&H.
Paroxysmal Atrial Fibrillation
Resume Amiodarone
- Continue Eliquis for stroke risk reductions.
History of DVT / PE
DVT Prophylaxis
- Negative Doppler study - unclear patient compliance with meds. History of DVT / PE that occurred in setting of non-compliance with Eliquis (2021).
- Continue Eliquis.
Code Status: DNR
Total time spent to see the patient on the floor, examine the patient, review data and lab results, discuss treatment plan with patient, nursing staff around 42 minutes.
Physical Exam
General: No acute distress
HEENT: Normocephalic, Atraumatic, EOMI, MMM
Respiratory: Scattered Rales
Cardiac: Normal S1/S2, Regular Rate and Rhythm
GI: Soft, Nontender, Nondistended, Normal Bowel Sounds
Extremities: No Clubbing, Cyanosis
Bilateral lower extremity edema noted
Neuro: Nonfocal/Grossly Intact
Psych: Calm, Cooperative
Anticipated Discharge: 24 - 48 hours
Subjective/Interval History
-
Date of Service: May 26, 2024
Patient reports continued shortness of breath, unchanged from prior. She continues to have a productive cough. No fever, no vomiting.
Objective Data
-
Labs:
Laboratory Results
05/26/24
07:03
WBC Pending
Hgb Pending
Hct Pending
Plt Count Pending
Sodium Pending
Potassium Pending
Chloride Pending
Carbon Dioxide Pending
BUN Pending
Creatinine Pending
Glucose Pending
Calcium Pending
Vital Signs:
Vital Signs
Temp Pulse Resp BP Pulse Ox
97.5 F 87 20 125/60 99
05/26/24 03:29 05/26/24 03:29 05/26/24 07:28 05/26/24 03:29 05/26/24 07:28
I&O
05/25/24 05/26/24 05/27/24
06:59 06:59 06:59
Intake Total 600 / 600 1680 / 1680
Balance 600 / 600 1680 / 1680
[2024-05-26 08:18] LABS: Hematocrit 33.5 % (37.0-47.0); Hemoglobin 10.1 g/dL (12.0-16.0); Mean Corp Hgb Conc. 30.1 g/dL (33.0-37.0); Mean Corpuscular Hgb 26.8 pg (27.0-31.0); Mean Corpuscular Volume 88.9 fL (81.0-99.0); Mean Platelet Volume 10.2 fL (7.4-10.4); Platelet Count 439 10^3/uL (130-400); Red Blood Cell Count 3.77 10^6/uL (4.20-5.40); Red Cell Dist. Width 21.1 % (11.5-14.5); White Blood Cell Count 14.4 10^3/uL (4.8-10.8)
[2024-05-26] MEDS: LASIX 40 MG PO (08:38)
[2024-05-26] MEDS: ELIQUIS 5 MG PO ×2 (08:38→21:32)
[2024-05-26] MEDS: PROTONIX 40 MG PO (08:38)
[2024-05-26] MEDS: ROBITUSSIN AC 10 ML PO ×4 (08:38→21:31)
[2024-05-26] MEDS: PACERONE 200 MG PO (08:39)
[2024-05-26] MEDS: TOPROL XL 50 MG PO (08:39)
[2024-05-26 08:54] LABS: Albumin 3.4 g/dl (3.5-5.0); Blood Urea Nitrogen 27 mg/dl (7-17); Calcium 8.7 mg/dl (8.4-10.2); Carbon Dioxide 38 mmol/L (22-30); Chloride 93 mmol/L (98-107); Estimated Creatinine Clearance 69 ml/min; Glucose 86 mg/dl (70-99); Phosphorus 1.7 mg/dl (2.5-4.5); Potassium 4.2 mmol/L (3.5-5.1); Sodium 139 mmol/L (135-145); eGFR > 60.00
--- NOTE | 2024-05-26 09:30 | W.PN.PUL.V3 ---
Today's Communication / Plan
-
Oxygen
Antibiotics
Gentle diuresis
Assessment
-
78-year-old female with a past medical history of COPD, bronchiectasis, reactive airway disease, chronic HFpEF, chronic bronchitis, history of PVCs, history of aspergillosis, A-fib on Eliquis with history of cardioversion, hypertension,
hyperlipidemia and anxiety who presents with worsening SOB. Her SOB has been worsening over the last 2 months. She is on home oxygen and wears 5 L/min ATC. She receives iron infusions as arranged by hematology, and she reports worsening SOB
following these infusions. 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 Per the family, patient has been significantly declining over the last 5 years. She sleeps poorly due to cough and sits upright in a chair 24 hours a day. Patient is
excluding extremely sedentary. Patient also having worsening LE edema for several weeks. Diuretic started as an outpatient by her PCP with no significant improvement in her symptoms. In the ER she was afebrile to 99.4 �F, pulse rate 97, breathing
at 24 breaths/min, BP 133/51 and saturating 100% on nonrebreather. Labs showed leukocytosis to 19.1, anemia to 9.4, elevated platelet count of 450, chronic hypercapnia with pCO2 52, pH 7.41, proBNP elevated at 2490, troponin negative at <0.012, and
COVID antigen negative. CXR showed bronchovascular prominence suspected for interstitial edema superimposed on chronic interstitial lung disease. 40 mg IV Lasix was given in the ER, and patient was admitted to the hospitalist service for further
care. Pulmonary now consulted for additional management/recommendations.
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
chronic cough/chronic bronchitis, history of PVCs, history of LBBB, chronic HFpEF, hiatal hernia, bronchiectasis intolerant to vest therapy in the past, reactive airway disease
Impression:
#Acute on chronic respiratory failure with hypoxia
#Acute decompensated heart failure
#Leukocytosis
#Anemia (baseline Hb 11-12.5g/dL)
#Thrombocytosis, likely reactive
#Subclinical hyperthyroidism
#Chronic hypercapnic respiratory failure, likely due to COPD + alveolar hypoventilation
#COPD in setting of bronchiectasis and chronic bronchitis
Plan:
Respiratory status slowly improving
Supplemental oxygen as needed-patient chronically on 5 L
Nebulizers-budesonide and DuoNebs continue
Aspiration precautions
Speech therapy evaluating patient
Incentive spirometry
Mucolytic's
Intolerant to vest therapy in the past
Acapella or flutter
Chest x-ray 05/25/2024-prominent interstitial markings, may represent interstitial pneumonia or pneumonitis superimposed on some chronic interstitial changes
Cardiology following-correspondence reviewed-signed off 05/26/2024
Diuresis as tolerated
Diuresis note
Chronic amiodarone 200 mg daily
Replace electrolytes
Cultures reviewed
Sputum culture 05/24/2024 with Proteus
Empiric antibiotics-currently on cefepime-sensitive to multiple oral antibiotics including Augmentin, ampicillin, ciprofloxacin, Bactrim
DVT prophylaxis-on Eliquis
GI prophylaxis-on pantoprazole
Melatonin for insomnia
Nutrition
Early mobilization/physical therapy
Outpatient pulmonary [id number] already has a follow-up arranged with our office on 05/28/[address] Cantrell at 3:00 PM. If patient is discharged prior to that date, she should keep that appointment. Otherwise, if still hospitalized then
we will reschedule.
Data:
CXR 05/22/2024:
Increased generalized interstitial prominence with normal heart size, possibly reflecting noncardiogenic interstitial edema superimposed on chronic interstitial lung disease. Otherwise consider superimposed generalized pneumonitis. No focal dense
consolidation.
Subjective Data
-
Date of Service:
Date of Service: May 26, 2024
Chief Complaint: Pulmonary Follow Up and Dyspnea Follow Up
Subjective:
Continues to complain of some shortness of breath especially with exertion, speech therapy evaluating patient, has complaints of some mucus and difficulties mobilizing, dyspnea on exertion about the same, no chest pain or abdominal pain
Review of Systems
General: Other (Per HPI)
Objective Data
Data Reviewed
Vital Signs / I&O:
Vital Signs
Temp Pulse Resp BP Pulse Ox
97.9 F 79 24 128/55 99
05/26/24 07:39 05/26/24 07:39 05/26/24 07:39 05/26/24 07:39 05/26/24 09:24
Intake and Output
05/25/24 05/26/24 05/27/24
06:59 06:59 06:59
Intake Total 600 / 600 1680 / 1680
Balance 600 / 600 1680 / 1680
SaO2: 99
Nasal Cannula flow liters per minute: 4
Physical Exam
General: Respiratory Distress (negative), Comfortable, Chills (negative) and Sweats (negative)
HEENT: Normocephalic, Anicteric and Moist Mucous Membranes
Cardiovascular: Regular Rhythm and Peripheral Edema (negative)
Respiratory: Wheeze (negative), Crackles (Bilaterally), Rhonchi (negative) and Non-Labored Respirations
GI: Soft, Non Distended, Non Tender and Normal Bowel Sounds
Neurology: Awake, Alert, No Motor Deficits and Tremors (negative)
Skin: Warm, Good Color, Cyanosis (n) and Jaundice (negative)
Labs/Micro/Reports
Lab Data
05/26/24 07:03
05/26/24 07:03
Microbiology
05/24/24 12:12 Sputum Respiratory Culture - Final
Proteus mirabilis
05/24/24 12:12 Sputum Gram Stain - Final
--- NOTE | 2024-05-26 11:05 | W.HF.CON ---
Heart Failure
- LV Function
Left ventricular function study result: LV Ejection fraction >40%
Ejection Fraction Percentage: 55-60
- ARNI
Patient already on ARNI: No
Heart Failure ARNI Not Indicated: LV Ejection Fraction >/= 40%
- ACEI/ARB
Patient already on ACEI/ARB: No
Heart Failure ACEI/ARB Not Indicated: LV Ejection Fraction > 40%
- Beta Donna
Patient already on Evidence Based Beta Donna: Yes
- Mineralocorticord Receptor Antagonist
Patient already on MRA: No
Heart Failure MRA Not Indicated: LV Ejection Fraction > 40%
- SGLT-2 Inhibitor
Patient already on SGLT-2 Inhibitor: No
Heart Failure SGLT-2 Inhibitor Not Indicated: LV Ejection Fraction >40%
- Afib Anticoagulation
Patient already on Anticoagulation for Afib: Yes
- NYHA CHF Classification
NYHA CHF Classification Level: Class III - Symptoms w/ min exertion, interferes w/ nml daily activity
- ACC/AHA Stage
ACC/AHA Stage: Stage C: Symptomatic Heart Failure
--- NOTE | 2024-05-26 12:26 | CM ---
Addendum entered by Jennifer Anne 05/26/24 16:57:
Spoke with son Maximiliano bedside.
Per Maximiliano, Nemo is the primary contact.
TC to admission to switch.
Addendum entered by Jennifer Anne 05/26/24 15:30:
Spoke with patients and son nemo at patients request.
He is agreeable to skilled rehab.
Per Nemo, no more FE infusions planned.
Nemo requested a call when patient ready for d/c.
Addendum entered by Jennifer Anne 05/26/24 15:24:
Patient can go to [facility]'s home pending bed availability and as long as no FE infusions planned.
patient will need insurance auth once medically stable.
Plan: skileld rehab, hopefully [facility]'s home pending bed availability day of d/c.
Original Note:
Spoke with patient bedside.
PT recommending skilled rehab.
Patient would like skilled rehab at [facility]'s Home, patient has been there 2 x in the past.
Referral via [facility].
Plan: skilled rehab when medically stable.
--- NOTE | 2024-05-26 14:59 | W.PN.HOSP.TC ---
Today's Communication/Plan
-
See bold
Assessment / Plan
Assessment / Plan
Patient is a 78y F with PMH significant for bronchiectasis and chronic O2-dependence who presents to ED complaining of worsening SOB and fatigue.
#Acute on Chronic Hypoxemic Respiratory Insufficiency/ acute respiratory distress. No documented hypoxia on admission
Chronic hypoxic respiratory failure
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
Video swallow did not show significant aspiration. Speech pathology recommends soft/bite-size diet with thin liquids
Appreciate pulmonology input, started on dexamethasone 05/27, continue budesonide and bronchodilators
S/p IV cefepime for Proteus in sputum, now on augmentin
Has appointment with pulmonology on 05/28/[address] Cantrell at 3:00 PM
Currently satting 97% on 3 L, wean as tolerated (she wears 5 L at home)
#Acute on Chronic HFpEF
Negative troponin X 4
Echocardiogram showed LVEF 55 to 60%, moderate mitral regurgitation, moderate tricuspid regurgitation. No significant changes from echo in April 2023
Appreciate cardiology input, status post Lasix 20 mg IV twice daily, currently on Lasix 40 mg p.o. daily
#Hypophosphatemia
Replete by IV and p.o., recheck a.m. labs
#Iron Deficiency Anemia
- Patient recently evaluated by Hematology and has received 2 doses of IV iron thus far.
- Monitor
Paroxysmal Atrial Fibrillation
Resume Amiodarone
- Continue Eliquis for stroke risk reductions.
History of DVT / PE
DVT Prophylaxis
- Negative Doppler study - unclear patient compliance with meds. History of DVT / PE that occurred in setting of non-compliance with Eliquis (2021).
- Continue Eliquis.
Code Status: DNR
Updated son on phone 05/26
Total time spent to see the patient on the floor, examine the patient, review data and lab results, discuss treatment plan with patient, nursing staff around 52 minutes.
Physical Exam
General: No acute distress
HEENT: Normocephalic, Atraumatic, EOMI, MMM
Respiratory: Scattered Rales
Cardiac: Normal S1/S2, Regular Rate and Rhythm
GI: Soft, Nontender, Nondistended, Normal Bowel Sounds
Extremities: No Clubbing, Cyanosis
Bilateral lower extremity edema noted
Neuro: Nonfocal/Grossly Intact
Psych: Calm, Cooperative
Anticipated Discharge: 24 - 48 hours
Subjective/Interval History
-
Date of Service: May 26, 2024
Patient reports her shortness of breath is still the same. Continues to have a cough. No fever, no vomiting.
Objective Data
-
Labs:
Laboratory Results
05/26/24
07:03
WBC 14.4 H
Hgb 10.1 L
Hct 33.5 L
Plt Count 439 H
Sodium 139
Potassium 4.2
Chloride 93 L
Carbon Dioxide 38 H
BUN 27 H
Creatinine 0.6
Glucose 86
Calcium 8.7
Vital Signs:
Vital Signs
Temp Pulse Resp BP Pulse Ox
98.4 F 75 24 118/54 99
05/26/24 11:32 05/26/24 11:32 05/26/24 11:32 05/26/24 11:32 05/26/24 11:32
I&O
05/25/24 05/26/24 05/27/24
06:59 06:59 06:59
Intake Total 600 / 600 1680 / 1680
Balance 600 / 600 1680 / 1680
[2024-05-26] MEDS: CRESTOR 20 MG PO (17:55)
[2024-05-26] MEDS: KLONOPIN 0.25 MG PO (21:31)
[2024-05-26] MEDS: AUGMENTIN 875 MG/125 MG 1 TABLET PO (21:31)
[2024-05-26] MEDS: MELATONIN 10 MG PO (21:31)
[2024-05-26] MEDS: TESSALON PERLES 200 MG PO (21:36)
[2024-05-27] VITALS (8 sets, daily range): BP systolic 102–121; BP diastolic 49–61; PULSE 78–80; O2SAT 95–96; BMI 19.0
[2024-05-27] MEDS: PULMICORT 0.5 MG INH ×2 (07:18→19:28)
[2024-05-27] MEDS: DUONEB 3 ML INH ×2 (07:18→19:28)
[2024-05-27] MEDS: ELIQUIS 5 MG PO ×2 (08:28→19:27)
[2024-05-27] MEDS: PROTONIX 40 MG PO (08:28)
[2024-05-27] MEDS: TOPROL XL 50 MG PO (08:28)
[2024-05-27] MEDS: ROBITUSSIN AC 10 ML PO ×4 (08:29→21:57)
[2024-05-27] MEDS: PACERONE 200 MG PO (08:29)
[2024-05-27] MEDS: LASIX 40 MG PO (08:29)
[2024-05-27] MEDS: AUGMENTIN 875 MG/125 MG 1 TABLET PO ×2 (08:29→19:28)
[2024-05-27] MEDS: TESSALON PERLES 200 MG PO ×2 (08:29→21:59)
--- NOTE | 2024-05-27 08:35 | W.PN.HOSP.TC ---
Today's Communication/Plan
-
see bold
Assessment / Plan
Assessment / Plan
Patient is a 78y F with PMH significant for bronchiectasis and chronic O2-dependence who presents to ED complaining of worsening SOB and fatigue.
#Acute on Chronic Hypoxemic Respiratory Insufficiency/ acute respiratory distress. No documented hypoxia on admission
Chronic hypoxic respiratory failure
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
Video swallow did not show significant aspiration. Speech pathology recommends soft/bite-size diet with thin liquids
Appreciate pulmonology input, started on dexamethasone 05/27, continue budesonide and bronchodilators
S/p IV cefepime for Proteus in sputum, now on augmentin
Has appointment with pulmonology on 05/28/[address] Cantrell at 3:00 PM
Currently satting 97% on 3 L, wean as tolerated (she wears 5 L at home)
#Acute on Chronic HFpEF
Negative troponin X 4
Echocardiogram showed LVEF 55 to 60%, moderate mitral regurgitation, moderate tricuspid regurgitation. No significant changes from echo in April 2023
Appreciate cardiology input, status post Lasix 20 mg IV twice daily, currently on Lasix 40 mg p.o. daily
#Hypophosphatemia
Replete by IV and p.o., recheck a.m. labs
#Iron Deficiency Anemia
- Patient recently evaluated by Hematology and has received 2 doses of IV iron thus far.
- Monitor
Paroxysmal Atrial Fibrillation
Resume Amiodarone
- Continue Eliquis for stroke risk reductions.
History of DVT / PE
DVT Prophylaxis
- Negative Doppler study - unclear patient compliance with meds. History of DVT / PE that occurred in setting of non-compliance with Eliquis (2021).
- Continue Eliquis.
Code Status: DNR
Updated son on phone 05/26
Total time spent to see the patient on the floor, examine the patient, review data and lab results, discuss treatment plan with patient, nursing staff around 52 minutes.
Physical Exam
General: No acute distress
HEENT: Normocephalic, Atraumatic, EOMI, MMM
Respiratory: Scattered Rales
Cardiac: Normal S1/S2, Regular Rate and Rhythm
GI: Soft, Nontender, Nondistended, Normal Bowel Sounds
Extremities: No Clubbing, Cyanosis
Bilateral lower extremity edema noted
Neuro: Nonfocal/Grossly Intact
Psych: Calm, Cooperative
Anticipated Discharge: 24 - 48 hours
Subjective/Interval History
-
Date of Service: May 28, 2024
Patient reports her shortness of breath is still the same. Continues to have a cough. No fever, no vomiting.
Objective Data
-
Labs:
Laboratory Results
05/28/24
07:04
WBC 26.1 H
Hgb 10.9 L
Hct 36.1 L
Plt Count 516 H
Sodium 139
Potassium 4.6
Chloride 95 L
Carbon Dioxide 38 H
BUN 17
Creatinine 0.5 L
Glucose 123 H
Calcium 8.6
Vital Signs:
Vital Signs
Temp Pulse Resp BP Pulse Ox
97.5 F 76 20 116/54 100
05/28/24 07:25 05/28/24 08:13 05/28/24 07:25 05/28/24 08:13 05/28/24 07:25
I&O
05/27/24 05/28/24 05/29/24
06:59 06:59 06:59
Intake Total 480 / 480 1680 / 1680
Output Total 1500 / 1500 1850 / 1850
Balance -1020 / -1020 -170 / -170
[2024-05-27 08:40] LABS: Albumin 3.3 g/dl (3.5-5.0); Blood Urea Nitrogen 18 mg/dl (7-17); Calcium 8.6 mg/dl (8.4-10.2); Carbon Dioxide 38 mmol/L (22-30); Chloride 93 mmol/L (98-107); Estimated Creatinine Clearance 58 ml/min; Glucose 86 mg/dl (70-99); Phosphorus 1.4 mg/dl (2.5-4.5); Potassium 3.9 mmol/L (3.5-5.1); Sodium 140 mmol/L (135-145); eGFR > 60.00
--- NOTE | 2024-05-27 09:38 | W.PN.PUL.V3 ---
Today's Communication / Plan
-
Diuresis as tolerated
Mucolytic's
Nebulizers
Intensify mucus clearing devices-incentive spirometry/flutter/add vest therapy-has tried in the past-willing to try again
Antibiotics
Try Decadron
Assessment
-
78-year-old female with a past medical history of COPD, bronchiectasis, reactive airway disease, chronic HFpEF, chronic bronchitis, history of PVCs, history of aspergillosis, A-fib on Eliquis with history of cardioversion, hypertension,
hyperlipidemia and anxiety who presents with worsening SOB. Her SOB has been worsening over the last 2 months. She is on home oxygen and wears 5 L/min ATC. She receives iron infusions as arranged by hematology, and she reports worsening SOB
following these infusions. 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 Per the family, patient has been significantly declining over the last 5 years. She sleeps poorly due to cough and sits upright in a chair 24 hours a day. Patient is
excluding extremely sedentary. Patient also having worsening LE edema for several weeks. Diuretic started as an outpatient by her PCP with no significant improvement in her symptoms. In the ER she was afebrile to 99.4 �F, pulse rate 97, breathing
at 24 breaths/min, BP 133/51 and saturating 100% on nonrebreather. Labs showed leukocytosis to 19.1, anemia to 9.4, elevated platelet count of 450, chronic hypercapnia with pCO2 52, pH 7.41, proBNP elevated at 2490, troponin negative at <0.012, and
COVID antigen negative. CXR showed bronchovascular prominence suspected for interstitial edema superimposed on chronic interstitial lung disease. 40 mg IV Lasix was given in the ER, and patient was admitted to the hospitalist service for further
care. Pulmonary now consulted for additional management/recommendations.
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
chronic cough/chronic bronchitis, history of PVCs, history of LBBB, chronic HFpEF, hiatal hernia, bronchiectasis intolerant to vest therapy in the past, reactive airway disease
Impression:
#Acute on chronic respiratory failure with hypoxia
#Acute decompensated heart failure
#Leukocytosis
#Anemia (baseline Hb 11-12.5g/dL)
#Thrombocytosis, likely reactive
#Subclinical hyperthyroidism
#Chronic hypercapnic respiratory failure, likely due to COPD + alveolar hypoventilation
#COPD in setting of bronchiectasis and chronic bronchitis
Plan:
Respiratory status remains tenuous especially with ongoing chest congestion/productive cough and mucus
Supplemental oxygen as needed-patient chronically on 5 L
Nebulizers-budesonide and DuoNebs continue
Add Decadron
Aspiration precautions
Speech therapy evaluating patient
Incentive spirometry
Mucolytic's
Intolerant to vest therapy in the past-discussed with her and willing to try again
Acapella or flutter encouraged
Chest x-ray 05/25/2024-prominent interstitial markings, may represent interstitial pneumonia or pneumonitis superimposed on some chronic interstitial changes
Cardiology following-correspondence reviewed-signed off 05/26/2024
Diuresis as tolerated
Monitor renal function, electrolytes, intake/output, lower extremity edema and weight
Replace electrolytes as needed
Chronic amiodarone 200 mg daily
Replace electrolytes
Cultures reviewed
Sputum culture 05/24/2024 with Proteus
Empiric antibiotics-currently on cefepime-sensitive to multiple oral antibiotics including Augmentin, ampicillin, ciprofloxacin, Bactrim
DVT prophylaxis-on Eliquis
GI prophylaxis-on pantoprazole
Melatonin for insomnia
Nutrition
Early mobilization/physical therapy
Outpatient pulmonary [id number] already has a follow-up arranged with our office on 05/28/[address] Cantrell at 3:00 PM. If patient is discharged prior to that date, she should keep that appointment. Otherwise, if still hospitalized then
we will reschedule.
Data:
CXR 05/22/2024:
Increased generalized interstitial prominence with normal heart size, possibly reflecting noncardiogenic interstitial edema superimposed on chronic interstitial lung disease. Otherwise consider superimposed generalized pneumonitis. No focal dense
consolidation.
Subjective Data
-
Date of Service:
Date of Service: May 27, 2024
Chief Complaint: Pulmonary Follow Up and Dyspnea Follow Up
Subjective:
Still complaining of significant mucus production and chest congestion, no chest pain, increased shortness of breath, abdominal pain
Review of Systems
General: Other (Per HPI)
Objective Data
Data Reviewed
Vital Signs / I&O:
Vital Signs
Temp Pulse Resp BP Pulse Ox
97.2 F 97 16 121/63 100
05/27/24 07:05 05/27/24 08:28 05/27/24 07:21 05/27/24 08:28 05/27/24 07:21
Intake and Output
05/26/24 05/27/24 05/28/24
06:59 06:59 06:59
Intake Total 1680 / 1680 480 / 480
Output Total 1500 / 1500
Balance 1680 / 1680 -1020 / -1020
SaO2: 100
Nasal Cannula flow liters per minute: 4
Physical Exam
General: Respiratory Distress (negative), Comfortable, Chills (negative) and Sweats (negative)
HEENT: Normocephalic, Anicteric and Moist Mucous Membranes
Cardiovascular: Regular Rhythm and Peripheral Edema (negative)
Respiratory: Wheeze (negative), Crackles (Bilaterally), Rhonchi (Expiratory), Non-Labored Respirations, Accessory Resp Muscle Use (n) and Stridor (n)
GI: Soft, Non Distended, Non Tender and Normal Bowel Sounds
Neurology: Awake, Alert, No Motor Deficits and Tremors (negative)
Skin: Warm, Good Color, Cyanosis (n), Jaundice (negative) and Rash (n)
Labs/Micro/Reports
Lab Data
05/26/24 07:03
05/27/24 06:59
Microbiology
05/24/24 12:12 Sputum Respiratory Culture - Final
Proteus mirabilis
05/24/24 12:12 Sputum Gram Stain - Final
[2024-05-27] MEDS: NEUTRA-PHOS POWDER PACKET 250 MG PO ×4 (10:03→21:57)
[2024-05-27] MEDS: POTASSIUM PHOSPHATE 259.0909 MEQ IV (10:07)
--- NOTE | 2024-05-27 10:14 | PN.CDI ---
CDI
- -
CDI:
Physician Documentation Request
Admit Date: 05/22/24 20:50
Dear Doctor Do,
Clinical Indicators:
Patient admitted with acute on chronic hypoxemic respiratory insufficiency.
9 PN, '... Likely community-acquired pneumonia, present on admission although normal procalcitonin'
WBC on admission:
05/22/24
16:29
WBC 19.1 H
HR/RR trend on admission:
05/22/24
16:15 05/22/24
17:00 05/22/24
18:00
Pulse 97 98 98
Resp Rate 24 34 42
05/22/24
19:00 05/22/24
20:00 05/22/24
22:01
Pulse 99 94 99
Resp Rate 23 26 22
Please clarify which of the following most accurately describes the status of the patient's infection:
Sepsis, POA
- Systemic manifestations of infection, with 2 or more SIRS criteria which include:
- Fever >100.4 degrees F or hypothermia < 96.8 degrees F
- Leukocytosis - WBC > 12,000 or leukopenia - WBC < 4,000 or > 10% bands
- Tachycardia > 90 beats per minute
- Tachypnea - RR > 20 breaths per minute or PaCO2 , 32mmHg
Source: [employer] Manual 2013
Severe Sepsis POA, with associated respiratory failure
Pneumonia Only, Without Systemic Illness
Other, please specify
Use of terms such as suspected, likely, concern for, or probable (associated with a specific diagnosis that is being evaluated, monitored, or treated as if it exists) are acceptable and can be coded in the inpatient setting, when documented at the
time of discharge.
Thank you,
Kinjal Flynn RN BSN
CDI Specialist
available via tiger text
Please use your independent medical judgment in providing your response.
--- NOTE | 2024-05-27 10:24 | PN.CDI ---
CDI
- -
CDI:
Physician Documentation Request
Admit Date: 05/22/24 20:50
Dear Doctor Do,
Clinical Indicators:
Patient admitted with Acute on Chronic Hypoxemic Respiratory Insufficiency & acute on chronic HFpEF.
05/22 (15:29) EMS Report, SPO2: 80 RR: 30 Effort:Labored
05/26 PN, 'Acute on Chronic Hypoxemic Respiratory Insufficiency/ acute respiratory distress. No documented hypoxia on admission Chronic hypoxic respiratory failure'
05/26 Pulmonary PN, 'Acute on chronic respiratory failure with hypoxia...Chronic hypercapnic respiratory failure'
02 requirements:
05/22/24
16:15 05/22/24
22:01
Oxygen Mode of Delivery Non-rebreather
mask
Nasal Cannula flow liters per minute 6
VBG C02 on admission:
05/22/24
16:48
VBG pCO2 52 H
Due to potentially conflicting documentation, please clarify which of the following accurately represents the patient's respiratory status:
Acute on chronic hypoxic respiratory failure/chronic hypercapnic respiratory failure
Acute on chronic hypoxic/hypercapnic respiratory failure
Acute on chronic hypoxic respiratory insufficiency/chronic hypoxic respiratory failure only
Other, please specify
Additional information for Respiratory Failure:
Recognized criteria for Respiratory Failure (Source: [employer] Hospitalist Jul 2013)
ABGs: (1 or more) Symptoms Please indicate type if known
1. p)2 <60 or RA SPO2 <91% on RA 1. Tachypnea, SOB, dyspnea Hypoxic
2. pCO2 50 and pH <7.35 2. Use of accessory muscles Hypercapnic
3. pO2 decrease of pCO2 increase by 3. Pallor or cyanosis Hypoxic and Hypercapnic
10 mmHg from baseline if known 4. Anxiety or restlessness Unable to determine
5. Unable to speak in full sentences
Supplemental O2 of > 40% (5LPM) Intubation is not required
Use of terms such as suspected, likely, concern for, or probable (associated with a specific diagnosis that is being evaluated, monitored, or treated as if it exists) are acceptable and can be coded in the inpatient setting, when documented at the
time of discharge.
Thank you,
Kinjal Flynn RN BSN
CDI Specialist
available via tiger text
Please use your independent medical judgment in providing your response.
[2024-05-27] MEDS: DECADRON 4 MG IV ×2 (12:13→22:01)
--- NOTE | 2024-05-27 16:22 | CM ---
CM continues to follow for probable transfer to SNF. PT and OT recommend SNF placement; Pt prefers [facility] which has agreed to admission if a bed is available at time of discharge.
Plan: CM to follow for SNF transfer when medically ready; [facility] pending bed availability when she is ready for discharge.
[2024-05-27] MEDS: CRESTOR 20 MG PO (17:01)
[2024-05-27] MEDS: MELATONIN 10 MG PO (21:55)
[2024-05-27] MEDS: KLONOPIN 0.25 MG PO (21:56)
[2024-05-28] VITALS (7 sets, daily range): BP systolic 100–156; BP diastolic 54–87; PULSE 78; O2SAT 99; BMI 19.9
[2024-05-28] MEDS: LASIX 40 MG PO (08:13)
[2024-05-28] MEDS: AUGMENTIN 875 MG/125 MG 1 TABLET PO ×2 (08:13→19:33)
[2024-05-28] MEDS: ROBITUSSIN AC 10 ML PO ×4 (08:13→22:00)
[2024-05-28] MEDS: ELIQUIS 5 MG PO ×2 (08:13→19:33)
[2024-05-28] MEDS: TOPROL XL 50 MG PO (08:14)
[2024-05-28] MEDS: PACERONE 200 MG PO (08:14)
[2024-05-28] MEDS: NEUTRA-PHOS POWDER PACKET 250 MG PO ×4 (08:14→22:00)
[2024-05-28] MEDS: PROTONIX 40 MG PO (08:14)
[2024-05-28] MEDS: TESSALON PERLES 200 MG PO ×2 (08:17→17:14)
[2024-05-28 08:20] LABS: Blood Urea Nitrogen 17 mg/dl (7-17); Calcium 8.6 mg/dl (8.4-10.2); Carbon Dioxide 38 mmol/L (22-30); Chloride 95 mmol/L (98-107); Estimated Creatinine Clearance 70 ml/min; Glucose 123 mg/dl (70-99); Magnesium 2.3 mg/dl (1.6-2.3); Phosphorus 2.4 mg/dl (2.5-4.5); Potassium 4.6 mmol/L (3.5-5.1); Sodium 139 mmol/L (135-145); eGFR > 60.00
[2024-05-28 08:22] LABS: Hematocrit 36.1 % (37.0-47.0); Hemoglobin 10.9 g/dL (12.0-16.0); Mean Corp Hgb Conc. 30.2 g/dL (33.0-37.0); Mean Corpuscular Hgb 27.3 pg (27.0-31.0); Mean Corpuscular Volume 90.3 fL (81.0-99.0); Mean Platelet Volume 9.9 fL (7.4-10.4); Platelet Count 516 10^3/uL (130-400); Red Cell Dist. Width 22.1 % (11.5-14.5); White Blood Cell Count 26.1 10^3/uL (4.8-10.8)
[2024-05-28] MEDS: DUONEB 3 ML INH ×2 (08:22→19:51)
[2024-05-28] MEDS: PULMICORT 0.5 MG INH ×2 (08:22→19:51)
--- NOTE | 2024-05-28 09:04 | PTCARENOTE ---
Pt weaned to RA 94%RA.
--- NOTE | 2024-05-28 09:20 | PTOTSP ---
Speech Language Pathology
Pt seen for dysphagia tx. P.O. trials of regular solids and thin liquids provided. Adequate mastication, bolus formation, and A-P transit noted with no oral residue. No overt signs of aspiration. Discussed option of continuing current IDDSI 6
diet vs upgrade to regular solids, as suspect regular solids would improve appetite. Pt agreeable to trial.
Recommend:
(1) Upgrade to regular solids/thin liquids. If pt decides she prefers IDDSI 6, can be downgraded without COMPUTER SYSTEMS SUPPORT SPECIALIST
(2) General aspiration precautions
(3) Meds as tolerated
(4) COMPUTER SYSTEMS SUPPORT SPECIALIST to sign off, likely briefly
--- NOTE | 2024-05-28 09:20 | W.PN.PUL.V3 ---
Today's Communication / Plan
-
Decadron
Wean oxygen
Mucus clearing devices, nebulizers and mucolytic's
Gentle diuresis
Assessment
-
78-year-old female with a past medical history of COPD, bronchiectasis, reactive airway disease, chronic HFpEF, chronic bronchitis, history of PVCs, history of aspergillosis, A-fib on Eliquis with history of cardioversion, hypertension,
hyperlipidemia and anxiety who presents with worsening SOB. Her SOB has been worsening over the last 2 months. She is on home oxygen and wears 5 L/min ATC. She receives iron infusions as arranged by hematology, and she reports worsening SOB
following these infusions. 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 Per the family, patient has been significantly declining over the last 5 years. She sleeps poorly due to cough and sits upright in a chair 24 hours a day. Patient is
excluding extremely sedentary. Patient also having worsening LE edema for several weeks. Diuretic started as an outpatient by her PCP with no significant improvement in her symptoms. In the ER she was afebrile to 99.4 �F, pulse rate 97, breathing
at 24 breaths/min, BP 133/51 and saturating 100% on nonrebreather. Labs showed leukocytosis to 19.1, anemia to 9.4, elevated platelet count of 450, chronic hypercapnia with pCO2 52, pH 7.41, proBNP elevated at 2490, troponin negative at <0.012, and
COVID antigen negative. CXR showed bronchovascular prominence suspected for interstitial edema superimposed on chronic interstitial lung disease. 40 mg IV Lasix was given in the ER, and patient was admitted to the hospitalist service for further
care. Pulmonary now consulted for additional management/recommendations.
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
chronic cough/chronic bronchitis, history of PVCs, history of LBBB, chronic HFpEF, hiatal hernia, bronchiectasis intolerant to vest therapy in the past, reactive airway disease
Impression:
#Acute on chronic respiratory failure with hypoxia
#Acute decompensated heart failure
#Leukocytosis
#Anemia (baseline Hb 11-12.5g/dL)
#Thrombocytosis, likely reactive
#Subclinical hyperthyroidism
#Chronic hypercapnic respiratory failure, likely due to COPD + alveolar hypoventilation
#COPD in setting of bronchiectasis and chronic bronchitis
Plan:
Respiratory status improved with some ongoing chest congestion/productive cough and mucus
Supplemental oxygen as needed-patient chronically on 5 L
Nebulizers-budesonide and DuoNebs continue
Decadron added 05/27/2024-slowly wean-appears to be helping
Aspiration precautions
Speech therapy evaluating patient
Incentive spirometry
Mucolytic's
Intolerant to vest therapy in the past-reinitiated 05/27/2024-now tolerating
Acapella or flutter encouraged and instructions provided
Chest x-ray 05/25/2024-prominent interstitial markings, may represent interstitial pneumonia or pneumonitis superimposed on some chronic interstitial changes
Cardiology following-correspondence reviewed-signed off 05/26/2024
Diuresis as tolerated
Monitor renal function, electrolytes, intake/output, lower extremity edema and weight
Replace electrolytes as needed
Chronic amiodarone 200 mg daily
Replace electrolytes
Cultures reviewed
Sputum culture 05/24/2024 with Proteus
Empiric antibiotics-currently on cefepime-sensitive to multiple oral antibiotics including Augmentin, ampicillin, ciprofloxacin, Bactrim
DVT prophylaxis-on Eliquis
GI prophylaxis-on pantoprazole
Melatonin for insomnia
Nutrition
Early mobilization/physical therapy
Reviewed with primary team and nursing
Outpatient pulmonary [id number] already has a follow-up arranged with our office on 05/28/[address] Cantrell at 3:00 PM. If patient is discharged prior to that date, she should keep that appointment. Otherwise, if still hospitalized then
we will reschedule.
Data:
CXR 05/22/2024:
Increased generalized interstitial prominence with normal heart size, possibly reflecting noncardiogenic interstitial edema superimposed on chronic interstitial lung disease. Otherwise consider superimposed generalized pneumonitis. No focal dense
consolidation.
Subjective Data
-
Date of Service:
Date of Service: May 28, 2024
Chief Complaint: Pulmonary Follow Up and Dyspnea Follow Up
Subjective:
Feels better, still has significant mucus but increased mobilization, no chest pain, shortness of breath at rest, abdominal pain
Review of Systems
General: Other (Per HPI)
Objective Data
Data Reviewed
Vital Signs / I&O:
Vital Signs
Temp Pulse Resp BP Pulse Ox
97.5 F 78 20 116/54 97
05/28/24 07:25 05/28/24 08:37 05/28/24 08:37 05/28/24 08:13 05/28/24 08:37
Intake and Output
05/27/24 05/28/24 05/29/24
06:59 06:59 06:59
Intake Total 480 / 480 1680 / 1680
Output Total 1500 / 1500 1850 / 1850
Balance -1020 / -1020 -170 / -170
SaO2: 97
Nasal Cannula flow liters per minute: 2.5
Physical Exam
General: Respiratory Distress (negative), Comfortable, Chills (negative) and Sweats (negative)
HEENT: Normocephalic, Anicteric and Moist Mucous Membranes
Cardiovascular: Regular Rhythm and Peripheral Edema (negative)
Respiratory: Wheeze (negative), Crackles (Bilaterally), Rhonchi (Expiratory), Non-Labored Respirations, Accessory Resp Muscle Use (n) and Stridor (n)
GI: Soft, Non Distended, Non Tender and Normal Bowel Sounds
Neurology: Awake, Alert, No Motor Deficits and Tremors (negative)
Skin: Warm, Good Color, Cyanosis (n), Jaundice (negative) and Rash (n)
Labs/Micro/Reports
Lab Data
05/28/24 07:04
05/28/24 07:04
Microbiology
05/24/24 12:12 Sputum Respiratory Culture - Final
Proteus mirabilis
05/24/24 12:12 Sputum Gram Stain - Final
--- NOTE | 2024-05-28 10:43 | W.PN.HOSP.TC ---
Today's Communication/Plan
-
see bold
Assessment / Plan
Assessment / Plan
Patient is a 78y F with PMH significant for bronchiectasis and chronic O2-dependence who presents to ED complaining of worsening SOB and fatigue.
#Acute on chronic hypoxic and hypercapnic respiratory failure
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
#Sepsis, present upon admission
#Community-acquired pneumonia
Video swallow did not show significant aspiration. Speech pathology recommends soft/bite-size diet with thin liquids
Appreciate pulmonology input, started on dexamethasone 05/27, continue budesonide and bronchodilators
S/p IV cefepime for Proteus in sputum, now on augmentin
Has appointment with pulmonology on 05/28/[address] Cantrell at 3:00 PM
Currently satting 94% on RA, down from 5 L, wean as tolerated (she wears 5 L at home)
#Acute on Chronic HFpEF
Negative troponin X 4
Echocardiogram showed LVEF 55 to 60%, moderate mitral regurgitation, moderate tricuspid regurgitation. No significant changes from echo in April 2023
Appreciate cardiology input, status post Lasix 20 mg IV twice daily, currently on Lasix 40 mg p.o. daily
#Hypophosphatemia
Improving, continue repletion as needed
#Iron Deficiency Anemia
- Patient recently evaluated by Hematology and has received 2 doses of IV iron thus far.
- Monitor
Paroxysmal Atrial Fibrillation
Resume Amiodarone
- Continue Eliquis for stroke risk reductions.
History of DVT / PE
DVT Prophylaxis
- Negative Doppler study - unclear patient compliance with meds. History of DVT / PE that occurred in setting of non-compliance with Eliquis (2021).
- Continue Eliquis.
Code Status: DNR
Updated son on phone 05/26, 05/28
Total time spent to see the patient on the floor, examine the patient, review data and lab results, discuss treatment plan with patient, nursing staff around 51 minutes.
Physical Exam
General: No acute distress
HEENT: Normocephalic, Atraumatic, EOMI, MMM
Respiratory: Scattered Rales
Cardiac: Normal S1/S2, Regular Rate and Rhythm
GI: Soft, Nontender, Nondistended, Normal Bowel Sounds
Extremities: No Clubbing, Cyanosis
Bilateral lower extremity edema noted
Neuro: Nonfocal/Grossly Intact
Psych: Calm, Cooperative
Anticipated Discharge: 24 - 48 hours
Subjective/Interval History
-
Date of Service: May 28, 2024
Patient still reports shortness of breath, unchanged from yesterday. She is off oxygen. No fever, no vomiting.
Objective Data
-
Labs:
Laboratory Results
05/28/24
07:04
WBC 26.1 H
Hgb 10.9 L
Hct 36.1 L
Plt Count 516 H
Sodium 139
Potassium 4.6
Chloride 95 L
Carbon Dioxide 38 H
BUN 17
Creatinine 0.5 L
Glucose 123 H
Calcium 8.6
Vital Signs:
Vital Signs
Temp Pulse Resp BP Pulse Ox
97.5 F 78 20 116/54 97
05/28/24 07:25 05/28/24 08:37 05/28/24 08:37 05/28/24 08:13 05/28/24 09:20
I&O
05/27/24 05/28/24 05/29/24
06:59 06:59 06:59
Intake Total 480 / 480 1680 / 1680
Output Total 1500 / 1500 1850 / 1850
Balance -1020 / -1020 -170 / -170
[2024-05-28] MEDS: DECADRON 4 MG IV ×2 (12:05→22:01)
--- NOTE | 2024-05-28 15:09 | CM ---
Addendum entered by Jennifer Anne 05/29/24 12:48:
Oxygen is thru [facility] [phone]
TC to [facility] re vest therapy.
[facility] would need to provide Vest.
Plan: skilled rehab once stable, await bed availability.
Original Note:
Patient seen bedside.
TC from [facility]'s home, no beds available this week.
Discussed options with patient.
Referral to [facility].
Teodoro Viera updated at patients request.
Plan Skilled rehab once medically stable and bed available.
--- NOTE | 2024-05-28 15:27 | PTCARENOTE ---
pt back on 02, PO dropped with PT
[2024-05-28] MEDS: CRESTOR 20 MG PO (17:15)
[2024-05-28] MEDS: TYLENOL 650 MG PO (19:33)
[2024-05-28] MEDS: MELATONIN 10 MG PO (22:00)
[2024-05-28] MEDS: KLONOPIN 0.25 MG PO (22:00)
[2024-05-29 03:29] VITALS: BP 124/66
[2024-05-29 06:00] VITALS: BMI 18.8
[2024-05-29 07:10] VITALS: BP 122/56
[2024-05-29] MEDS: DUONEB 3 ML INH ×2 (07:23→19:53)
[2024-05-29] MEDS: PULMICORT 0.5 MG INH ×2 (07:23→19:54)
[2024-05-29] MEDS: ROBITUSSIN AC 10 ML PO ×4 (07:59→21:33)
[2024-05-29] MEDS: AUGMENTIN 875 MG/125 MG 1 TABLET PO ×2 (08:00→18:57)
[2024-05-29] MEDS: PACERONE 200 MG PO (08:00)
[2024-05-29] MEDS: TOPROL XL 50 MG PO (08:01)
[2024-05-29] MEDS: PROTONIX 40 MG PO (08:01)
[2024-05-29] MEDS: LASIX 40 MG PO (08:01)
[2024-05-29] MEDS: ELIQUIS 5 MG PO ×2 (08:01→18:57)
[2024-05-29 08:11] LABS: Blood Urea Nitrogen 22 mg/dl (7-17); Calcium 8.2 mg/dl (8.4-10.2); Carbon Dioxide 34 mmol/L (22-30); Chloride 97 mmol/L (98-107); Estimated Creatinine Clearance 66 ml/min; Glucose 121 mg/dl (70-99); Phosphorus 2.4 mg/dl (2.5-4.5); Potassium 4.3 mmol/L (3.5-5.1); Sodium 140 mmol/L (135-145); eGFR > 60.00
--- NOTE | 2024-05-29 08:39 | PN.CDI ---
CDI
- -
CDI:
Physician Documentation Request
Admit Date: 05/22/24 20:50
Dear Doctor Do,
Clinical Indicators:
Patient admitted with sepsis and acute on chronic HFpEF.
05/28 PN 'Community-acquired pneumonia'
Antibiotics:Cefepime, Augmentin
Sputum Culture
05/24/24 12:12 Respiratory Culture - Final
Sputum Gram Stain - Final
Proteus mirabilis
Based on the above, could you clarify further specificity regarding the known, suspected or likely type of pneumonia you are treating ?
Gram negative Pneumonia
Other type, please specify
Unable to determine
Use of terms such as suspected, likely, concern for, or probable (associated with a specific diagnosis that is being evaluated, monitored, or treated as if it exists) are acceptable and can be coded in the inpatient setting, when documented at the
time of discharge.
Thank you,
Kinjal Flynn RN BSN
CDI Specialist
available via tiger text
Please use your independent medical judgment in providing your response.
--- NOTE | 2024-05-29 09:11 | W.PN.PUL3 ---
Today's Communication / Plan
-
Remains on low supplemental O2, baseline use is higher than current amount
Will transition IV steroids to PO course
Encouraged PT/OT, will be going to rehab
Discharge planning per team
Outpatient pulmonary FU when able
Assessment
-
78-year-old female with a past medical history of COPD, bronchiectasis, reactive airway disease, chronic HFpEF, chronic bronchitis, history of PVCs, history of aspergillosis, A-fib on Eliquis with history of cardioversion, hypertension,
hyperlipidemia and anxiety who presents with worsening SOB. Her SOB has been worsening over the last 2 months. She is on home oxygen and wears 5 L/min ATC. She receives iron infusions as arranged by hematology, and she reports worsening SOB
following these infusions. 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 Per the family, patient has been significantly declining over the last 5 years. She sleeps poorly due to cough and sits upright in a chair 24 hours a day. Patient is
excluding extremely sedentary. Patient also having worsening LE edema for several weeks. Diuretic started as an outpatient by her PCP with no significant improvement in her symptoms. In the ER she was afebrile to 99.4 �F, pulse rate 97, breathing
at 24 breaths/min, BP 133/51 and saturating 100% on nonrebreather. Labs showed leukocytosis to 19.1, anemia to 9.4, elevated platelet count of 450, chronic hypercapnia with pCO2 52, pH 7.41, proBNP elevated at 2490, troponin negative at <0.012, and
COVID antigen negative. CXR showed bronchovascular prominence suspected for interstitial edema superimposed on chronic interstitial lung disease. 40 mg IV Lasix was given in the ER, and patient was admitted to the hospitalist service for further
care. Pulmonary now consulted for additional management/recommendations.
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
chronic cough/chronic bronchitis, history of PVCs, history of LBBB, chronic HFpEF, hiatal hernia, bronchiectasis intolerant to vest therapy in the past, reactive airway disease
Impression:
#Acute on chronic respiratory failure with hypoxia
#Acute decompensated heart failure
#Leukocytosis
#Anemia (baseline Hb 11-12.5g/dL)
#Thrombocytosis, likely reactive
#Subclinical hyperthyroidism
#Chronic hypercapnic respiratory failure, likely due to COPD + alveolar hypoventilation
#COPD in setting of bronchiectasis and chronic bronchitis
Plan:
Respiratory status improved with some ongoing chest congestion/productive cough and mucus
Supplemental oxygen as needed-patient chronically on 5 L, she is now weaned to 1.5-2L NC
Nebulizers-budesonide and DuoNebs continue
Decadron added 05/27/2024-slowly wean-appears to be helping--can transition to PO prednisone
Aspiration precautions
Speech therapy evaluating patient
Incentive spirometry
Mucolytic's
Intolerant to vest therapy in the past-reinitiated 05/27/2024-now tolerating
Acapella or flutter encouraged and instructions provided
Chest x-ray 05/25/2024-prominent interstitial markings, may represent interstitial pneumonia or pneumonitis superimposed on some chronic interstitial changes
Cardiology following-correspondence reviewed-signed off 05/26/2024
Diuresis as tolerated
Monitor renal function, electrolytes, intake/output, lower extremity edema and weight
Replace electrolytes as needed
Chronic amiodarone 200 mg daily
Replace electrolytes
Cultures reviewed
Sputum culture 05/24/2024 with Proteus
Empiric antibiotics-currently on cefepime-sensitive to multiple oral antibiotics including Augmentin, ampicillin, ciprofloxacin, Bactrim
DVT prophylaxis-on Eliquis
GI prophylaxis-on pantoprazole
Melatonin for insomnia
Nutrition
Early mobilization/physical therapy
Reviewed with primary team and nursing
Outpatient pulmonary [id number] with Dr. Cantrell
Data:
CXR 05/22/2024: Increased generalized interstitial prominence with normal heart size, possibly reflecting noncardiogenic interstitial edema superimposed on chronic interstitial lung disease. Otherwise consider superimposed generalized pneumonitis. No
focal dense consolidation.
Subjective Data
-
Date of Service:
Date of Service: May 29, 2024
Chief Complaint: Pulmonary Follow Up and Dyspnea Follow Up
Subjective:
Doing well now, on low O2 amts
Reports ongoing fatigue/weakness
Objective Data
Data Reviewed
Vital Signs / I&O / Oxygen:
Vital Signs
Temp Pulse Resp BP Pulse Ox
97.7 F 71 16 122/56 95
05/29/24 07:10 05/29/24 08:01 05/29/24 07:27 05/29/24 08:01 05/29/24 07:30
Intake and Output
05/28/24 05/29/24 05/30/24
06:59 06:59 06:59
Intake Total 1680 / 1680 1160 / 1160
Output Total 1850 / 1850 1880 / 1880
Balance -170 / -170 -720 / -720
SaO2 95
Nasal Cannula flow liters per 1.5
minute
Physical Exam
General: Respiratory Distress (negative), Comfortable, Chills (negative) and Sweats (negative)
HEENT: Normocephalic, Anicteric and Moist Mucous Membranes
Cardiovascular: Regular Rhythm and Peripheral Edema (negative)
Respiratory: Wheeze (negative), Crackles (Bilaterally), Non-Labored Respirations, Accessory Resp Muscle Use (n) and Stridor (n)
GI: Soft, Non Distended, Non Tender and Normal Bowel Sounds
Neurology: Awake, Alert, No Motor Deficits and Tremors (negative)
Skin: Warm, Good Color, Cyanosis (n), Jaundice (negative) and Rash (n)
Labs/Micro/Reports
Lab Data
05/28/24 07:04
05/29/24 07:24
Microbiology
05/24/24 12:12 Sputum Respiratory Culture - Final
Proteus mirabilis
05/24/24 12:12 Sputum Gram Stain - Final
--- NOTE | 2024-05-29 09:13 | PTCARENOTE ---
Assumed care of pt from previous nurse. Pt denies pain. Pt is on 1.5L's of 02 sating 95%. Pt is [place], lungs are diminished. Pt call fitch is within reach, pt rings rainer. pt is on tele running nsr with bbb.
--- NOTE | 2024-05-29 09:15 | W.PN.HOSP.TC ---
Today's Communication/Plan
-
Discharge to short-term rehab tomorrow
Assessment / Plan
Assessment / Plan
Patient is a 78y F with PMH significant for bronchiectasis and chronic O2-dependence who presents to ED complaining of worsening SOB and fatigue.
#Acute on chronic hypoxic and hypercapnic respiratory failure
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
#Sepsis, present upon admission
#Community-acquired gram neg/proteus pneumonia
Video swallow did not show significant aspiration. Speech pathology recommends soft/bite-size diet with thin liquids
Appreciate pulmonology input, started on dexamethasone 05/27, pulmonology will transition to oral prednisone 05/30
Continue budesonide and bronchodilators
S/p IV cefepime for Proteus in sputum, now on augmentin
Has appointment with pulmonology on 05/28/[address] Cantrell at 3:00 PM
Currently requiring 1.5 L, down from 5 L, wean as tolerated (she wears 5 L at home)
#Acute on Chronic HFpEF
Negative troponin X 4
Echocardiogram showed LVEF 55 to 60%, moderate mitral regurgitation, moderate tricuspid regurgitation. No significant changes from echo in April 2023
Appreciate cardiology input, status post Lasix 20 mg IV twice daily, currently on Lasix 40 mg p.o. daily
#Hypophosphatemia
Improving, continue repletion as needed
#Anxiety
Started on Klonopin 0.25 mg at bedtime
#Weakness
PT recommend short-term rehab
#Iron Deficiency Anemia
- Patient recently evaluated by Hematology and has received 2 doses of IV iron thus far.
- Monitor
Paroxysmal Atrial Fibrillation
Resume Amiodarone
- Continue Eliquis for stroke risk reductions.
History of DVT / PE
DVT Prophylaxis
- Negative Doppler study - unclear patient compliance with meds. History of DVT / PE that occurred in setting of non-compliance with Eliquis (2021).
- Continue Eliquis.
Code Status: DNR
Updated son on phone 05/26, 05/28, 05/29
Total time spent to see the patient on the floor, examine the patient, review data and lab results, discuss treatment plan with patient, nursing staff around 50 minutes.
Physical Exam
General: Appears chronically ill, no acute distress
HEENT: Normocephalic, Atraumatic, EOMI, MMM
Respiratory: Scattered Rales
Cardiac: Normal S1/S2, Regular Rate and Rhythm
GI: Soft, Nontender, Nondistended, Normal Bowel Sounds
Extremities: No Clubbing, Cyanosis
Bilateral lower extremity edema noted
Neuro: Nonfocal/Grossly Intact
Psych: Calm, Cooperative
Anticipated Discharge: Within 24 hours
Subjective/Interval History
-
Date of Service: May 29, 2024
Patient continues to feel short of breath, also has a cough. No fever, no vomiting.
Objective Data
-
Labs:
Laboratory Results
05/29/24
07:24
Sodium 140
Potassium 4.3
Chloride 97 L
Carbon Dioxide 34 H
BUN 22 H
Creatinine 0.5 L
Glucose 121 H
Calcium 8.2 L
Vital Signs:
Vital Signs
Temp Pulse Resp BP Pulse Ox
97.7 F 71 16 122/56 95
05/29/24 07:10 05/29/24 08:01 05/29/24 07:27 05/29/24 08:01 05/29/24 07:30
I&O
05/28/24 05/29/24 05/30/24
06:59 06:59 06:59
Intake Total 1680 / 1680 1160 / 1160
Output Total 1850 / 1850 1880 / 1880
Balance -170 / -170 -720 / -720
[2024-05-29] MEDS: NEUTRA-PHOS POWDER PACKET 250 MG PO ×4 (09:43→21:33)
[2024-05-29 11:13] VITALS: BP 117/52
[2024-05-29] MEDS: DECADRON 4 MG IV (11:40)
--- NOTE | 2024-05-29 13:03 | CM ---
Patient seen bedside.
Oxygen is thru [facility] [phone]
TC to [facility] re vest therapy.
Per [facility] facility would need to provide Vest.
Plan: skilled rehab once stable, await bed availability.
Original Note:
[2024-05-29 15:16] VITALS: BP 107/49
[2024-05-29] MEDS: CRESTOR 20 MG PO (18:03)
[2024-05-29] MEDS: TESSALON PERLES 200 MG PO (18:58)
[2024-05-29] MEDS: MELATONIN 10 MG PO (21:31)
[2024-05-29] MEDS: KLONOPIN 0.25 MG PO (21:31)
[2024-05-29 22:42] VITALS: BP 122/54
[2024-05-30 06:00] VITALS: BMI 19.0
[2024-05-30 07:15] VITALS: BP 118/51
[2024-05-30] MEDS: DUONEB 3 ML INH (07:20)
[2024-05-30] MEDS: PULMICORT 0.5 MG INH (07:20)
[2024-05-30 08:07] LABS: Blood Urea Nitrogen 21 mg/dl (7-17); Calcium 8.5 mg/dl (8.4-10.2); Carbon Dioxide 34 mmol/L (22-30); Chloride 96 mmol/L (98-107); Estimated Creatinine Clearance 67 ml/min; Glucose 105 mg/dl (70-99); Phosphorus 2.5 mg/dl (2.5-4.5); Potassium 4.6 mmol/L (3.5-5.1); Sodium 139 mmol/L (135-145); eGFR > 60.00
[2024-05-30] MEDS: ELIQUIS 5 MG PO (08:24)
[2024-05-30] MEDS: PROTONIX 40 MG PO (08:24)
[2024-05-30] MEDS: PACERONE 200 MG PO (08:24)
[2024-05-30] MEDS: AUGMENTIN 875 MG/125 MG 1 TABLET PO (08:24)
[2024-05-30] MEDS: ROBITUSSIN AC 10 ML PO ×2 (08:24→13:12)
[2024-05-30] MEDS: NEUTRA-PHOS POWDER PACKET 250 MG PO ×2 (08:24→13:12)
[2024-05-30] MEDS: DELTASONE 40 MG PO (08:25)
[2024-05-30] MEDS: LASIX 40 MG PO (08:25)
[2024-05-30] MEDS: TOPROL XL 50 MG PO (08:25)
--- NOTE | 2024-05-30 08:57 | W.PN.HOSP.TC ---
Today's Communication/Plan
-
Discharge to short-term rehab today
Assessment / Plan
Assessment / Plan
Patient is a 78y F with PMH significant for bronchiectasis and chronic O2-dependence who presents to ED complaining of worsening SOB and fatigue.
#Acute on chronic hypoxic and hypercapnic respiratory failure
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
#Sepsis, present upon admission
#Community-acquired gram neg/proteus pneumonia
Video swallow did not show significant aspiration. Speech pathology recommends reg diet with thin liquids, pt has been tolerating
Appreciate pulmonology input, s/p dexamethasone, pulmonology transitioned to oral prednisone 05/30
Continue budesonide and bronchodilators
S/p IV cefepime for Proteus in sputum, now on augmentin
Currently requiring 1.5 L, down from 5 L, wean as tolerated (she wears 5 L at home)
Medically stable for discharge on prednisone taper, follow-up with pulmonology in the office
#Acute on Chronic HFpEF
Negative troponin X 4
Echocardiogram showed LVEF 55 to 60%, moderate mitral regurgitation, moderate tricuspid regurgitation. No significant changes from echo in April 2023
Appreciate cardiology input, status post Lasix 20 mg IV twice daily, currently on Lasix 40 mg p.o. daily
Follow-up with cardiology in the office
#Hypophosphatemia
Repleted and resolved
#Anxiety
Started on Klonopin 0.25 mg at bedtime -continue upon discharge
#Weakness
PT recommend short-term rehab
#Iron Deficiency Anemia
- Patient recently evaluated by Hematology and has received 2 doses of IV iron thus far.
- Monitor
Paroxysmal Atrial Fibrillation
Resume Amiodarone
- Continue Eliquis for stroke risk reductions.
History of DVT / PE
DVT Prophylaxis
- Negative Doppler study - unclear patient compliance with meds. History of DVT / PE that occurred in setting of non-compliance with Eliquis (2021).
- Continue Eliquis.
Code Status: DNR
Updated son on phone 05/26, 05/28, 05/29
Physical Exam
General: Appears chronically ill, no acute distress
HEENT: Normocephalic, Atraumatic, EOMI, MMM
Respiratory: Scattered Rales
Cardiac: Normal S1/S2, Regular Rate and Rhythm
GI: Soft, Nontender, Nondistended, Normal Bowel Sounds
Extremities: No Clubbing, Cyanosis
Bilateral lower extremity edema noted
Neuro: Nonfocal/Grossly Intact
Psych: Calm, Cooperative
Anticipated Discharge: Today
Subjective/Interval History
-
Date of Service: May 30, 2024
Patient reports her breathing is okay. No fever, no vomiting.
Objective Data
-
Labs:
Laboratory Results
05/30/24
07:07
Sodium 139
Potassium 4.6
Chloride 96 L
Carbon Dioxide 34 H
BUN 21 H
Creatinine 0.6
Glucose 105 H
Calcium 8.5
Vital Signs:
Vital Signs
Temp Pulse Resp BP Pulse Ox
97.4 F 69 16 118/51 97
05/30/24 07:15 05/30/24 07:23 05/30/24 07:23 05/30/24 07:15 05/30/24 07:23
I&O
05/29/24 05/30/24 05/31/24
06:59 06:59 06:59
Intake Total 1160 / 1160 1320 / 1320
Output Total 1880 / 1880 950 / 950
Balance -720 / -720 370 / 370
--- NOTE | 2024-05-30 09:00 | W.PN.PUL3 ---
Today's Communication / Plan
-
Doing well, remains on low supplemental O2
Discharge planning to SNF today
Outpatient FU recommended
Assessment
-
78-year-old female with a past medical history of COPD, bronchiectasis, reactive airway disease, chronic HFpEF, chronic bronchitis, history of PVCs, history of aspergillosis, A-fib on Eliquis with history of cardioversion, hypertension,
hyperlipidemia and anxiety who presents with worsening SOB. Her SOB has been worsening over the last 2 months. She is on home oxygen and wears 5 L/min ATC. She receives iron infusions as arranged by hematology, and she reports worsening SOB
following these infusions. 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 Per the family, patient has been significantly declining over the last 5 years. She sleeps poorly due to cough and sits upright in a chair 24 hours a day. Patient is
excluding extremely sedentary. Patient also having worsening LE edema for several weeks. Diuretic started as an outpatient by her PCP with no significant improvement in her symptoms. In the ER she was afebrile to 99.4 �F, pulse rate 97, breathing
at 24 breaths/min, BP 133/51 and saturating 100% on nonrebreather. Labs showed leukocytosis to 19.1, anemia to 9.4, elevated platelet count of 450, chronic hypercapnia with pCO2 52, pH 7.41, proBNP elevated at 2490, troponin negative at <0.012, and
COVID antigen negative. CXR showed bronchovascular prominence suspected for interstitial edema superimposed on chronic interstitial lung disease. 40 mg IV Lasix was given in the ER, and patient was admitted to the hospitalist service for further
care. Pulmonary now consulted for additional management/recommendations.
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
chronic cough/chronic bronchitis, history of PVCs, history of LBBB, chronic HFpEF, hiatal hernia, bronchiectasis intolerant to vest therapy in the past, reactive airway disease
Impression:
#Acute on chronic respiratory failure with hypoxia
#Acute decompensated heart failure
#Leukocytosis
#Anemia (baseline Hb 11-12.5g/dL)
#Thrombocytosis, likely reactive
#Subclinical hyperthyroidism
#Chronic hypercapnic respiratory failure, likely due to COPD + alveolar hypoventilation
#COPD in setting of bronchiectasis and chronic bronchitis
Plan:
Respiratory status improved with some ongoing chest congestion/productive cough and mucus
Supplemental oxygen as needed-patient chronically on 5 L, she is now weaned to 1.5-2L NC
Nebulizers-budesonide and DuoNebs continue
Decadron added 05/27/2024-slowly wean-appears to be helping--can transition to PO prednisone
Aspiration precautions
Speech therapy evaluating patient
Incentive spirometry
Mucolytic's
Intolerant to vest therapy in the past-reinitiated 05/27/2024-now tolerating
Acapella or flutter encouraged and instructions provided
Chest x-ray 05/25/2024-prominent interstitial markings, may represent interstitial pneumonia or pneumonitis superimposed on some chronic interstitial changes
Cardiology following-correspondence reviewed-signed off 05/26/2024
Diuresis as tolerated
Monitor renal function, electrolytes, intake/output, lower extremity edema and weight
Replace electrolytes as needed
Chronic amiodarone 200 mg daily
Replace electrolytes
Cultures reviewed
Sputum culture 05/24/2024 with Proteus
Empiric antibiotics-currently on cefepime-sensitive to multiple oral antibiotics including Augmentin, ampicillin, ciprofloxacin, Bactrim
DVT prophylaxis-on Eliquis
GI prophylaxis-on pantoprazole
Melatonin for insomnia
Nutrition
Early mobilization/physical therapy
Reviewed with primary team and nursing
Outpatient pulmonary [id number] with Dr. Cantrell
Discharge planning to SNF
Data:
CXR 05/22/2024: Increased generalized interstitial prominence with normal heart size, possibly reflecting noncardiogenic interstitial edema superimposed on chronic interstitial lung disease. Otherwise consider superimposed generalized pneumonitis. No
focal dense consolidation.
Subjective Data
-
Date of Service:
Date of Service: May 30, 2024
Chief Complaint: Pulmonary Follow Up and Dyspnea Follow Up
Subjective:
no events ON, clinically unchanged
Objective Data
Data Reviewed
Vital Signs / I&O / Oxygen:
Vital Signs
Temp Pulse Resp BP Pulse Ox
97.4 F 69 16 118/51 97
05/30/24 07:15 05/30/24 07:23 05/30/24 07:23 05/30/24 07:15 05/30/24 07:23
Intake and Output
05/29/24 05/30/24 05/31/24
06:59 06:59 06:59
Intake Total 1160 / 1160 1320 / 1320
Output Total 1880 / 1880 950 / 950
Balance -720 / -720 370 / 370
SaO2 97
Nasal Cannula flow liters per 1.5
minute
Physical Exam
General: Respiratory Distress (negative), Comfortable, Chills (negative) and Sweats (negative)
HEENT: Normocephalic, Anicteric and Moist Mucous Membranes
Cardiovascular: Regular Rhythm and Peripheral Edema (negative)
Respiratory: Wheeze (negative), Crackles (Bilaterally), Non-Labored Respirations, Accessory Resp Muscle Use (n) and Stridor (n)
GI: Soft, Non Distended, Non Tender and Normal Bowel Sounds
Neurology: Awake, Alert, No Motor Deficits and Tremors (negative)
Skin: Warm, Good Color, Cyanosis (n), Jaundice (negative) and Rash (n)
Labs/Micro/Reports
Lab Data
05/28/24 07:04
05/30/24 07:07
[2024-05-30 09:20] VITALS: PULSE 81; O2SAT 94
--- NOTE | 2024-05-30 10:39 | CM ---
Addendum entered by Jennifer Anne 05/30/24 12:17:
[facility] today via ambulance transport.
Son Terrance aware of 3:45 transport.
[facility]
report# [phone]

Original Note:
Insurance authorization obtained from Lorelei at [facility] [id number]
patient approved 5 days skilled rehab
Auth# [id number]
Start date 05/30/24, LCD/NRD 06/03/24
updates to
Ambulance authorization [id number], copay $240
--- NOTE | 2024-05-30 11:53 | W.DCSUMMARY ---
Discharge Summary
Discharge Data
Date of Admission: 05/22/24
Date of Discharge: 05/30/24
-
Pending Results: No
Hospital Course
Discharge diagnosis:
Acute on chronic hypoxic and hypercapnic respiratory failure
Chronic bronchiectasis/central lobar emphysema/bronchitis
Pulmonary hypertension
Restrictive lung disease
Sepsis
Community-acquired Proteus pneumonia
Acute on chronic heart failure with preserved ejection fraction
Hypophosphatemia
Anxiety
Weakness
Iron deficiency anemia
Paroxysmal atrial fibrillation
Consults: Pulmonology, cardiology
Chest x-ray:
Prominent pulmonary interstitial markings again seen which may represent interstitial edema/pneumonitis superimposed upon some chronic interstitial changes or predominant chronic pulmonary interstitial changes.
Hospital course:
78-year-old female with a past medical history of COPD, bronchiectasis, reactive airway disease, chronic HFpEF, chronic bronchitis, history of PVCs, history of aspergillosis, A-fib on Eliquis, and chronic hypoxic respiratory failure maintained on 5
L of oxygen was admitted for worsening shortness of breath. Patient wears 5 L of oxygen at home. She was seen in conjunction with pulmonology. She was found to have sepsis secondary to community-acquired pneumonia. She was treated with IV
cefepime, IV dexamethasone, budesonide nebs, and bronchodilators. Patient's sputum culture grew out Proteus. Her cefepime was transitioned to Augmentin, which she can continue upon discharge to complete a 14-day course.
Patient also had acute on chronic heart failure with a preserved ejection fraction. She was seen in conjunction with cardiology. She was diuresed with IV Lasix. Cardiology recommends that she be discharged on Lasix 40 mg p.o. daily. Patient also
has paroxysmal atrial fibrillation. She is continued on her Eliquis, amiodarone, and metoprolol succinate.
Patient had hypophosphatemia. This was repleted and resolved.
Patient's breathing improved. She was weaned down to 2 L on the day of discharge. Discussed with patient, that she does not need to be on 5 L, as she was satting 99% on 2 L on the day of discharge. Patient has a component of anxiety, which
contributes to her shortness of breath. She was started on Klonopin 0.25 mg at bedtime, which she can continue upon discharge. Pulmonology recommends that she be discharged on a steroid taper.
Patient's multiple medical conditions have been optimized. She is medically stable for discharge to short-term rehab. She needs to follow-up with her primary care doctor 1 week after she leaves rehab, and pulmonology/cardiology in the office in
2-3 weeks.
Disposition: Short-term rehab
Discharge planning: Required 46 minutes
Discharge Plan
-
Patient Disposition: [facility]
Discharge Diagnosis/Procedures: Acute on chronic hypoxic and hypercapnic respiratory failure, pneumonia, chronic bronchiectasis, emphysema, bronchitis, pulmonary hypertension, restrictive lung disease, congestive heart failure, hypophosphatemia,
anxiety, weakness, paroxysmal atrial fibrillation
Condition: Fair
Diet: Low Cholesterol
Activity: As tolerated
Driving Restrictions: As prior to admission
Activity Restrictions/Additional Instructions:
You need to wear only 1-2 L of oxygen at all times. Maintain pulse ox greater than 92%.
Take Augmentin twice a day for 7 more days.
Take prednisone taper: 40 mg daily x3 days, 30 mg daily x3 days, 20 mg daily x3 days, 10 mg daily x3 days.
Follow-up with your primary care doctor in 1 week, and pulmonology/cardiology in the office in 2-3 weeks.
Instructions: *[facility] Heart Failure Instructions
Referrals:
Frank Cantrell MD [Active] - in two to three weeks
Ebony Haynes MD [Family Provider] - in one week
Bonnie Jimenez DO [Active] - in two to three weeks
()
Prescriptions:
New
acetaminophen 325 mg Tablet
650 mg PO Q4HPRN PRN (Reason: Mild Pain / Temp > 101) Qty: 30 0RF
ipratropium-albuterol 0.5 mg-3 mg(2.5 mg base)/3 mL Solution For Nebulization
3 ml inhalation R BID Qty: 0 0RF
clonazepam 0.5 mg Tablet
0.25 mg PO HS Qty: 5 0RF
budesonide 0.5 mg/2 mL Suspension For Nebulization
0.5 mg inhalation R BID Qty: 0 0RF
codeine-guaifenesin 10-100 mg/5 mL Liquid
10 ml PO QID Qty: 200 0RF
amoxicillin-pot clavulanate 875-125 mg Tablet
1 tab PO Q12 7 Days Qty: 14 0RF
melatonin 5 mg Tablet
10 mg PO HS Qty: 30 0RF
prednisone 10 mg Tablet
See Rx Instructions .ROUTE .COMPLEX Qty: 30 0RF
Rx Instructions:
Take By Mouth:
40 mg daily x3 days, 30 mg daily x3 days,
20 mg daily x3 days, 10 mg daily x3 days.
Continued
calcium carbonate 600 MG tablet
600 mg PO DAILY
rosuvastatin 20 MG tablet
20 mg PO HS
amiodarone [Pacerone] 200 MG tablet
200 mg PO DAILY
guaifenesin [Mucus Relief ER] 600 MG tablet extended release 12hr
1,200 mg PO [id number] PRN (Reason: cough,congestion)
pantoprazole 40 MG tablet,delayed release (DR/EC)
40 mg PO DAILY Qty: 30 0RF
furosemide 40 MG tablet
40 mg PO NOON
benzonatate 100 MG capsule
200 mg PO TIDPRN PRN (Reason: cough)
alendronate 70 mg Tablet
70 mg PO QWEEK
Patient Comments:
05/22/24: Patient unsure of which day of the week she takes this medication
Eliquis 5 mg Tablet
5 mg PO BID
CertaVite Senior 0.4 mg-300 mcg- 250 mcg Tablet
1 tab PO DAILY
metoprolol succinate 50 MG tablet extended release 24 hr
50 mg PO DAILY Qty: 0 0RF
Discontinued
diphenhydramine-acetaminophen [Tylenol PM Extra Strength] 25-500 mg Tablet
2 tab PO HS
Discharge Orders:
Discharge Patient (As Directed); Ordered 05/30/24
Ordered By: Thiago Guan
Discharge Date and Time
Discharge Date/Time: 05/30/24 16:52
Print Language: SERBIAN
[2024-05-30 13:56] VITALS: BP 113/56
== END 2024-05-30 16:52 | DRG 871 ==
LOC: 4 WEST ACU 20:50
PROVIDERS: Internal Medicine; Physician Assistant; ADMITTING PHYSICIAN Hospitalist; ATTENDING PHYSICIAN Family Medicine; EMERGENCY PHYSICIAN Emergency Medicine; FAMILY PHYSICIAN Internal Medicine; OTHER PHYSICIAN Internal Medicine Cardiovascular Disease; OTHER PHYSICIAN Internal Medicine Critical Care Medicine
PROC: 5A19054 Respiratory Ventilation, Single, Nonmechanical (ICD-10-PCS; 2024-05-22)
DX: A41.9 Sepsis, unspecified organism (principal); I50.33 Acute on chronic diastolic (congestive) heart failure; J96.21 Acute and chronic respiratory failure with hypoxia; J96.22 Acute and chronic respiratory failure with hypercapnia; J15.69 Pneumonia due to other Gram-negative bacteria; J44.0 Chronic obstructive pulmonary disease with (acute) lower respiratory infection; J47.0 Bronchiectasis with acute lower respiratory infection; I47.19 Other supraventricular tachycardia; I27.20 Pulmonary hypertension, unspecified; I11.0 Hypertensive heart disease with heart failure; D50.9 Iron deficiency anemia, unspecified; E05.90 Thyrotoxicosis, unspecified without thyrotoxic crisis or storm; E83.39 Other disorders of phosphorus metabolism; Z99.81 Dependence on supplemental oxygen; B96.4 Proteus (mirabilis) (morganii) as the cause of diseases classified elsewhere; D75.839 Thrombocytosis, unspecified; E78.00 Pure hypercholesterolemia, unspecified; Z77.22 Contact with and (suspected) exposure to environmental tobacco smoke (acute) (chronic); F41.9 Anxiety disorder, unspecified; I44.7 Left bundle-branch block, unspecified; I48.0 Paroxysmal atrial fibrillation; J98.4 Other disorders of lung; K21.9 Gastro-esophageal reflux disease without esophagitis; K44.9 Diaphragmatic hernia without obstruction or gangrene; Z79.01 Long term (current) use of anticoagulants; Z79.83 Long term (current) use of bisphosphonates; Z79.899 Other long term (current) drug therapy; Z85.828 Personal history of other malignant neoplasm of skin; Z86.2 Personal history of diseases of the blood and blood-forming organs and certain disorders involving the immune mechanism; Z86.718 Personal history of other venous thrombosis and embolism; Z87.440 Personal history of urinary (tract) infections; Z86.79 Personal history of other diseases of the circulatory system; Z87.81 Personal history of (healed) traumatic fracture; Z96.653 Presence of artificial knee joint, bilateral
CPT/HCPCS: 71045; 71046; 74018; 74230; 80048; 80053; 80069; 82805; 83036; 83540; 83550; 83605; 83735; 83880; 84100; 84145; 84439; 84443; 84484; 85025; 85027; 87070; 87071; 87186; 87205; 87811; 92526; 92610; 92611; 93005; 93306; 93970; 94640; 94669; 96374; 97110; 97116; 97163; 97166; 97530; 97535; 99285

== ENCOUNTER → 2024-06-04 13:41 | Outpatient (REF) | payer OTHER, SELFPAY ==
[2024-06-04 15:16] LABS: Hematocrit 33.9 % (37.0-47.0); Hemoglobin 10.2 g/dL (12.0-16.0); Mean Corp Hgb Conc. 30.1 g/dL (33.0-37.0); Mean Corpuscular Hgb 26.6 pg (27.0-31.0); Mean Corpuscular Volume 88.5 fL (81.0-99.0); Mean Platelet Volume 10.2 fL (7.4-10.4); Platelet Count 493 10^3/uL (130-400); Red Blood Cell Count 3.83 10^6/uL (4.20-5.40); Red Cell Dist. Width 23.2 % (11.5-14.5)
[2024-06-04 15:27] LABS: Blood Urea Nitrogen 18 mg/dl (7-17); Calcium 7.8 mg/dl (8.4-10.2); Carbon Dioxide 26 mmol/L (22-30); Chloride 103 mmol/L (98-107); Glucose 64 mg/dl (70-99); Potassium 4.5 mmol/L (3.5-5.1); Sodium 139 mmol/L (135-145); eGFR > 60.00
== END ==
LOC: OLABP 13:41
PROVIDERS: ATTENDING PHYSICIAN Family Medicine
DX: J96.21 Acute and chronic respiratory failure with hypoxia (principal); J96.22 Acute and chronic respiratory failure with hypercapnia; I48.0 Paroxysmal atrial fibrillation; E83.39 Other disorders of phosphorus metabolism; I50.33 Acute on chronic diastolic (congestive) heart failure; F41.9 Anxiety disorder, unspecified; M81.0 Age-related osteoporosis without current pathological fracture; J44.9 Chronic obstructive pulmonary disease, unspecified; J18.9 Pneumonia, unspecified organism; J47.9 Bronchiectasis, uncomplicated; I11.0 Hypertensive heart disease with heart failure
CPT/HCPCS: 36415; 80048; 85027

== ENCOUNTER → 2024-06-09 10:30 | Outpatient (REF) | payer OTHER, SELFPAY ==
[2024-06-09 11:31] LABS: % Basophils 0.2 % (0-2); % Eosinophils 0.5 % (0-6); % Immature Granulocytes 1.2 % (0-0.5); % Monocytes 5.4 % (1.7-9.3); % Neutrophils 88.7 % (42.2-75.2); Absolute Eosinophils 0.1 10^3/uL (0-0.7); Absolute Immature Granulocytes 0.2 10^3/uL (0-0.05); Absolute Lymphocytes 0.8 10^3/uL (1.2-3.4); Absolute Monocytes 1.1 10^3/uL (0.1-0.6); Absolute Neutrophils 17.5 10^3/uL (1.4-6.5); Hematocrit 34.3 % (37.0-47.0); Hemoglobin 10.6 g/dL (12.0-16.0); Mean Corp Hgb Conc. 30.9 g/dL (33.0-37.0); Mean Corpuscular Hgb 27.7 pg (27.0-31.0); Mean Corpuscular Volume 89.8 fL (81.0-99.0); Mean Platelet Volume 10.2 fL (7.4-10.4); Nucleated Red Blood Cells % 0 %; Platelet Count 386 10^3/uL (130-400); Red Blood Cell Count 3.82 10^6/uL (4.20-5.40); Red Cell Dist. Width 23.7 % (11.5-14.5); White Blood Cell Count 19.7 10^3/uL (4.8-10.8)
== END ==
LOC: OLABP 10:30
PROVIDERS: ATTENDING PHYSICIAN Family Medicine
DX: J96.21 Acute and chronic respiratory failure with hypoxia (principal); J96.22 Acute and chronic respiratory failure with hypercapnia; I48.0 Paroxysmal atrial fibrillation; E83.39 Other disorders of phosphorus metabolism; I50.33 Acute on chronic diastolic (congestive) heart failure; F41.9 Anxiety disorder, unspecified; M81.0 Age-related osteoporosis without current pathological fracture; J44.9 Chronic obstructive pulmonary disease, unspecified; J18.9 Pneumonia, unspecified organism; J47.9 Bronchiectasis, uncomplicated; I11.0 Hypertensive heart disease with heart failure
CPT/HCPCS: 36415; 85025

== ENCOUNTER 2024-06-24 20:17 | Inpatient (IN) | payer OTHER, SELFPAY ==
[2024-06-24 16:16] VITALS: BP 108/58
[2024-06-24 16:20] VITALS: BP 104/42
--- NOTE | 2024-06-24 16:30 | ED.GENMED ---
ED Provider Triage
<Daniel Oswald PA-C - Last Filed: 06/24/24 16:31>
-
Patient seen by provider in Triage?: Seen in Triage
Attestation: A medical screening examination has been initiated by a qualified medical provider. Based on the assessment performed at this time, it has been determined that an emergent medical condition may exist and the patient has been informed
that further medical evaluation and possible additional diagnostic testing may be needed.
HPI: 78-year-old female presents for evaluation of right leg swelling and redness over the past 1 to 2 days. She does have intermittent edema of the lower extremities but reports it is much worse today. Denies any chest pain or shortness of breath
GENERAL: Alert , in no apparent distress
EYE: No visual abnormalities.
NECK: Trachea midline
ENT: No visible abnormalities.
LUNGS: No acute respiratory distress
NEUROLOGICAL: Alert and oriented
SKIN: Skin intact. No visible changes.
MUSCULOSKELETAL: Severe pitting edema of the right lower extremity with moderate erythema of the lower third of the leg, there is mild edema of the left lower extremity as well
PSYCH: Normal and appropriate interaction.
A/P: Significant swelling of the right lower extremity with erythema of the lower third of the leg circumferentially. Likely cellulitis, will obtain labs to help determine disposition for inpatient versus DC
This is a medical evaluation conducted in person to initiate diagnostic evaluation and provide initial therapeutics. Please see further documentation by the treating clinician.
History of Present Illness
<Daniel Oswald PA-C - Last Filed: 06/24/24 16:31>
General
Chief Complaint: Skin Problem
Time Seen by Provider: 06/24/24 17:21
<Andra Rosales PA-C - Last Filed: 06/24/24 20:04>
General
Source: patient
Exam Limitations: none
Nursing documentation reviewed up to this point in time: agreed with
History of Present Illness
History of Present Illness:
78-year-old female with past medical history of bronchiectasis chronically on oxygen, A-fib on Eliquis, CHF, recurrent cellulitis presents emergency department today with concerns of right lower leg swelling and pain. Patient states that she has
had redness in her bilateral lower extremities worse on the right and has been getting increasing pain and redness over the past few days. Patient states that she has had something similar in the past and had to be on and off antibiotics for it.
Patient is currently staying in rehab at [facility] and reports that she also has had increasing dyspnea with exertion. She is on 2 L oxygen at baseline. She denies any changes in her sputum or increasing cough. Patient denies any fevers or
chills, nausea or vomiting, abdominal pain, chest pain. Patient any sore throat, congestion. Patient notes chronic difficulties with swallowing and notes that she the soft food diet. Patient denies any other concerns at this time.
Past History
<Daniel Oswald PA-C - Last Filed: 06/24/24 16:31>
Past History
ED Past Medical History: Arrthythmia, COPD, HTN, Hypercholesterolemia and Other
ED Past Surgical History: Cholecystectomy and Orthopedic
Social History
Tobacco: Non-smoker
Alcohol: None
Drug: None
Personal:
Living: [facility]
Employment: Retired
Review of Systems
<Andra Rosales PA-C - Last Filed: 06/24/24 20:04>
Review of Systems
All Other Systems: ROS reviewed and negative except as documented in HPI and ROS
Phy Exam
<ED Marvin Last Filed: 06/24/24 20:04>
Physical Exam
Physical Exam:
General: Patient is chronically ill-appearing but nontoxic, in no acute respiratory distress
Skin: Warm and dry, there is bilateral lower extremity pitting edema with warmth and erythema noted to the right lower portion
Head: Normocephalic, atraumatic
Eyes: Sclera non-icteric. EOMs intact. PERRLA.
Cardiac: Regular rate and rhythm, no murmurs
Pulm: Increased history effort, tachypnea noted, scattered wheezing heard throughout
Abdomen: No abdominal tenderness to palpation
Musculoskeletal: Full range of motion of bilateral upper and lower extremities
Neuro: CN II-XII intact, no focal neurologic deficits.
Psychiatric: Appropriate mood and affect.
Course
<Daniel Oswald PA-C - Last Filed: 06/24/24 16:31>
Orders/Labs/Results
Orders:
Orders
06/24/24 16:35
Complete Blood Count/With Diff Urgent
Comprehensive Metabolic Panel Urgent
NT-proBNP Urgent
06/24/24 17:36
CR Chest - 2 Views Urgent
Comment:
Reason For Exam: acute on chronic cough, tachypnea
06/24/24 18:49
Piperacillin/Tazo 3.375 Gram [Zosyn] 3.375 gram in 50 ml IV NOW
06/24/24 18:50
Furosemide [Lasix] 40 mg IV ONCE ONE
06/24/24 19:52
US Periph Venous LOWER Ext RT Urgent
Comment:
Reason For Exam: Asymmetric edema
06/24/24 20:00
VANCOMYCIN Pharmacy to Dose [VANCOCIN Pharmacy to Dose] 1 each Pharmacy To Prepare [Call Pharmacy To Prepare] 0 ml IV PER PROTOCOL
Abnormal Lab Results
06/24/24
16:35
WBC 17.6 H 10^3/uL
(4.8-10.8)
RBC 4.15 L 10^6/uL
(4.20-5.40)
Hgb 11.1 L g/dL
(12.0-16.0)
Hct 36.3 L %
(37.0-47.0)
MCH 26.7 L pg
(27.0-31.0)
MCHC 30.6 L g/dL
(33.0-37.0)
RDW 22.2 H %
(11.5-14.5)
Plt Count 605 H 10^3/uL
(130-400)
Abs Immat Gran (auto) 0.2 H 10^3/uL
(0-0.05)
Absolute Neuts (auto) 15.7 H 10^3/uL
(1.4-6.5)
Absolute Lymphs (auto) 0.6 L 10^3/uL
(1.2-3.4)
Absolute Monos (auto) 1.1 H 10^3/uL
(0.1-0.6)
Immature Gran % 1.0 H %
(0-0.5)
Neutrophils % 88.9 H %
(42.2-75.2)
Lymphocytes % 3.2 L %
(20.5-51.1)
Carbon Dioxide 35 H mmol/L
(22-30)
BUN 21 H mg/dl
(7-17)
Glucose 127 H mg/dl
(70-99)
Total Bilirubin 0.1 L mg/dl
(0.2-1.3)
Alkaline Phosphatase 191 H U/L
(38-126)
Albumin 3.4 L g/dl
(3.5-5.0)
06/24/24 16:35
06/24/24 16:35
Vital Signs
Initial and Last Documented VS:
Initial Vital Signs
Temp Pulse Resp BP Pulse Ox
97.8 F 88 18 108/58 96
06/24/24 16:16 06/24/24 16:16 06/24/24 16:16 06/24/24 16:16 06/24/24 16:16
Last Documented Vital Signs
Temp Pulse Resp BP Pulse Ox
98.1 F 87 22 104/42 98
06/24/24 16:20 06/24/24 19:02 06/24/24 16:20 06/24/24 16:20 06/24/24 16:20
Tatelt;Andra Rosales PA-C - Last Filed: 06/24/24 20:04>
Orders/Labs/Results
Orders:
Orders
06/24/24 16:35
Complete Blood Count/With Diff Urgent
Comprehensive Metabolic Panel Urgent
NT-proBNP Urgent
06/24/24 17:36
CR Chest - 2 Views Urgent
Comment:
Reason For Exam: acute on chronic cough, tachypnea
06/24/24 18:49
Piperacillin/Tazo 3.375 Gram [Zosyn] 3.375 gram in 50 ml IV NOW
06/24/24 18:50
Furosemide [Lasix] 40 mg IV ONCE ONE
06/24/24 19:52
US Periph Venous LOWER Ext RT Urgent
Comment:
Reason For Exam: Asymmetric edema
06/24/24 20:00
VANCOMYCIN Pharmacy to Dose [VANCOCIN Pharmacy to Dose] 1 each Pharmacy To Prepare [Call Pharmacy To Prepare] 0 ml IV PER PROTOCOL
Abnormal Lab Results
06/24/24
16:35
WBC 17.6 H 10^3/uL
(4.8-10.8)
RBC 4.15 L 10^6/uL
(4.20-5.40)
Hgb 11.1 L g/dL
(12.0-16.0)
Hct 36.3 L %
(37.0-47.0)
MCH 26.7 L pg
(27.0-31.0)
MCHC 30.6 L g/dL
(33.0-37.0)
RDW 22.2 H %
(11.5-14.5)
Plt Count 605 H 10^3/uL
(130-400)
Abs Immat Gran (auto) 0.2 H 10^3/uL
(0-0.05)
Absolute Neuts (auto) 15.7 H 10^3/uL
(1.4-6.5)
Absolute Lymphs (auto) 0.6 L 10^3/uL
(1.2-3.4)
Absolute Monos (auto) 1.1 H 10^3/uL
(0.1-0.6)
Immature Gran % 1.0 H %
(0-0.5)
Neutrophils % 88.9 H %
(42.2-75.2)
Lymphocytes % 3.2 L %
(20.5-51.1)
Carbon Dioxide 35 H mmol/L
(22-30)
BUN 21 H mg/dl
(7-17)
Glucose 127 H mg/dl
(70-99)
Total Bilirubin 0.1 L mg/dl
(0.2-1.3)
Alkaline Phosphatase 191 H U/L
(38-126)
Albumin 3.4 L g/dl
(3.5-5.0)
06/24/24 16:35
06/24/24 16:35
Vital Signs
Initial and Last Documented VS:
Initial Vital Signs
Temp Pulse Resp BP Pulse Ox
97.8 F 88 18 108/58 96
06/24/24 16:16 06/24/24 16:16 06/24/24 16:16 06/24/24 16:16 06/24/24 16:16
Last Documented Vital Signs
Temp Pulse Resp BP Pulse Ox
98.1 F 87 22 104/42 98
06/24/24 16:20 06/24/24 19:02 06/24/24 16:20 06/24/24 16:20 06/24/24 16:20
<Trell Silva, DO - Last Filed: 06/24/24 18:21>
Orders/Labs/Results
Orders:
Orders
06/24/24 16:35
Complete Blood Count/With Diff Urgent
Comprehensive Metabolic Panel Urgent
NT-proBNP Urgent
06/24/24 17:36
CR Chest - 2 Views Urgent
Comment:
Reason For Exam: acute on chronic cough, tachypnea
06/24/24 18:49
Piperacillin/Tazo 3.375 Gram [Zosyn] 3.375 gram in 50 ml IV NOW
06/24/24 18:50
Furosemide [Lasix] 40 mg IV ONCE ONE
06/24/24 19:52
US Periph Venous LOWER Ext RT Urgent
Comment:
Reason For Exam: Asymmetric edema
06/24/24 20:00
VANCOMYCIN Pharmacy to Dose [VANCOCIN Pharmacy to Dose] 1 each Pharmacy To Prepare [Call Pharmacy To Prepare] 0 ml IV PER PROTOCOL
Abnormal Lab Results
06/24/24
16:35
WBC 17.6 H 10^3/uL
(4.8-10.8)
RBC 4.15 L 10^6/uL
(4.20-5.40)
Hgb 11.1 L g/dL
(12.0-16.0)
Hct 36.3 L %
(37.0-47.0)
MCH 26.7 L pg
(27.0-31.0)
MCHC 30.6 L g/dL
(33.0-37.0)
RDW 22.2 H %
(11.5-14.5)
Plt Count 605 H 10^3/uL
(130-400)
Abs Immat Gran (auto) 0.2 H 10^3/uL
(0-0.05)
Absolute Neuts (auto) 15.7 H 10^3/uL
(1.4-6.5)
Absolute Lymphs (auto) 0.6 L 10^3/uL
(1.2-3.4)
Absolute Monos (auto) 1.1 H 10^3/uL
(0.1-0.6)
Immature Gran % 1.0 H %
(0-0.5)
Neutrophils % 88.9 H %
(42.2-75.2)
Lymphocytes % 3.2 L %
(20.5-51.1)
Carbon Dioxide 35 H mmol/L
(22-30)
BUN 21 H mg/dl
(7-17)
Glucose 127 H mg/dl
(70-99)
Total Bilirubin 0.1 L mg/dl
(0.2-1.3)
Alkaline Phosphatase 191 H U/L
(38-126)
Albumin 3.4 L g/dl
(3.5-5.0)
06/24/24 16:35
06/24/24 16:35
Vital Signs
Initial and Last Documented VS:
Initial Vital Signs
Temp Pulse Resp BP Pulse Ox
97.8 F 88 18 108/58 96
06/24/24 16:16 06/24/24 16:16 06/24/24 16:16 06/24/24 16:16 06/24/24 16:16
Last Documented Vital Signs
Temp Pulse Resp BP Pulse Ox
98.1 F 87 22 104/42 98
06/24/24 16:20 06/24/24 19:02 06/24/24 16:20 06/24/24 16:20 06/24/24 16:20
<Andra Rosales PA-C - Last Filed: 06/24/24 20:04>
MDM/Problems Addressed
Differential Diagnosis Includes:
Differentials include CHF exacerbation, cellulitis, lymphedema, pneumonia
MDM/Problems Addressed:
78-year-old female who presents to the emergency department with increasing dyspnea upon exertion as well as acute sudden onset of bilateral lower extremity edema with erythema and warmth of the right lower extremity. Patient is chronically
ill-appearing on exam, has tachypnea, increased respiratory rate. She has leukocytosis noted as well as elevated platelet's, and increased immature granulocytes. She also has increased bicarb. Chest x-ray was obtained which demonstrates extensive
reticular nodule airspace disease however parenchymal airspace disease appears slightly worsened from last day which may represent superimposed interstitial pneumonia. Considering patient's elevated white count and 2 potential sources of infection
will admit for empiric IV antibiotics. Will give Lasix for potential CHF exacerbation.
Chronic conditions affecting care:
bronchiectasis on 2L chronically, afib on eliquis, htn
<Andra Rosales PA-C - Last Filed: 06/24/24 20:04>
*Pulse Oximetry
Patient hypoxic: no
*Critical Care Note
Total Time (30-74mins, 75-104mins- exclusive of procedures): Not Applicable
Data Reviewed
Review of Other/Old Records Reveals: Records (Reviewed previous ER physician documentation from 02/05/2024, reviewed discharge summary from 05/30/24)
Source: patient and records
<Andra Rosales PA-C - Last Filed: 06/24/24 20:04>
Patient Management
Escalation/DeEscalation of care consider admission/obs:
PAtient referred for admission
ED Attending Note
<Daniel Oswadl PA-C - Last Filed: 06/24/24 16:31>
-
Portions of this chart may have been created with voice recognition software.� Occasional wrong word or��sound alike� substitutions may have occurred due to the inherent limitations of voice recognition software.
<Trell Silva DO - Last Filed: 06/24/24 18:21>
ED Attending Note
Patient seen and examined by attending physician: Yes
I performed the substantive portion of visit, reviewed & personally made and approve the management plan that is documented in note by myself or CROW.: Yes
ED Attending Note:
I have seen and evaluated the patient with a [id number] encounter. I have spoken to the advance practicer provider and involved in the medical history, the physical exam, medical decision making.
Evaluation and management service: agree unless noted differently below.
Results interpretation: agree unless noted differently below.
Focused HPI: 78-year-old female presenting with worsening shortness of breath and worsening bilateral leg swelling. Patient is coming from rehab. She states she is more winded with minimal exertion
Physical exam: Weak and frail. Pitting edema bilateral lower extremities with erythema to both shins. Legs are neurovascularly intact
Medical Decision Making: Patient is showing concern for CHF exacerbation versus cellulitis. Will empirically start antibiotics but will obtain chest x-ray first. Will give IV Lasix and ultimately admit
Discharge Plan
Departure
Patient Disposition: Admit
Date of Disposition: 06/24/24
Time of Disposition: 19:05
Admit to: Med/Surg
Presentation/result/management discussed w/ accepting MD/DO: Hospitalist
Discharge Problem:
Acute interstitial pneumonia, Edema, pitting
Prescriptions:
No Action
calcium carbonate 600 MG tablet
600 mg PO DAILY
rosuvastatin 20 MG tablet
20 mg PO HS
amiodarone [Pacerone] 200 MG tablet
200 mg PO DAILY
guaifenesin [Mucus Relief ER] 600 MG tablet extended release 12hr
1,200 mg PO [id number] PRN (Reason: cough,congestion)
pantoprazole 40 MG tablet,delayed release (DR/EC)
40 mg PO DAILY Qty: 30 0RF
furosemide 40 MG tablet
40 mg PO DAILY
alendronate 70 mg Tablet
70 mg PO WE
Eliquis 5 mg Tablet
5 mg PO BID
CertaVite Senior 0.4 mg-300 mcg- 250 mcg Tablet
1 tab PO DAILY
acetaminophen 325 mg Tablet
650 mg PO Q4HPRN PRN (Reason: Mild Pain / Temp > 101) Qty: 30 0RF
ipratropium-albuterol 0.5 mg-3 mg(2.5 mg base)/3 mL Solution For Nebulization
3 ml inhalation R BID Qty: 0 0RF
budesonide 0.5 mg/2 mL Suspension For Nebulization
0.5 mg inhalation R BID Qty: 0 0RF
metoprolol succinate 50 MG tablet extended release 24 hr
50 mg PO DAILY Qty: 0 0RF
benzonatate 200 mg Capsule
200 mg PO TIDPRN PRN (Reason: cough)
magnesium hydroxide [Milk of Magnesia] 400 mg/5 mL Suspension
30 ml PO DAILYPRN PRN (Reason: constipation)
clonazepam 0.5 mg tablet
0.25 mg PO HS
melatonin 5 mg tablet
5 mg PO HS
Referrals:
Ebony Haynes MD [Family Provider] -
Interventions
Interventions:
*Risk Screen - Suicide Last Done: 06/24/24 16:20
*General Assessment Last Done: 06/24/24 18:10
*Neglect/Abuse Screening Last Done: 06/24/24 18:10
ED- Fall Risk Assessment Last Done: 06/24/24 18:10
Discharge Date and Time
Print Language: MACEDONIAN
[2024-06-24 17:02] LABS: NT-proBNP 362 pg/ml
[2024-06-24 17:05] LABS: Hematocrit 36.3 % (37.0-47.0); Hemoglobin 11.1 g/dL (12.0-16.0); Mean Corp Hgb Conc. 30.6 g/dL (33.0-37.0); Mean Corpuscular Hgb 26.7 pg (27.0-31.0); Mean Corpuscular Volume 87.5 fL (81.0-99.0); Red Blood Cell Count 4.15 10^6/uL (4.20-5.40); Red Cell Dist. Width 22.2 % (11.5-14.5); White Blood Cell Count 17.6 10^3/uL (4.8-10.8)
[2024-06-24 17:06] LABS: ALT (SGPT) 28 U/L (0-35); AST (SGOT) 29 U/L (14-36); Albumin 3.4 g/dl (3.5-5.0); Alkaline Phosphatase 191 U/L (38-126); Blood Urea Nitrogen 21 mg/dl (7-17); Calcium 8.6 mg/dl (8.4-10.2); Carbon Dioxide 35 mmol/L (22-30); Chloride 99 mmol/L (98-107); Glucose 127 mg/dl (70-99); Potassium 4.3 mmol/L (3.5-5.1); Sodium 143 mmol/L (135-145); Total Bilirubin 0.1 mg/dl (0.2-1.3); Total Protein 6.5 g/dl (6.3-8.2); eGFR > 60.00
[2024-06-24 18:00] LABS: % Basophils 0.3 % (0-2); % Eosinophils 0.5 % (0-6); % Lymphocytes 3.2 % (20.5-51.1); % Monocytes 6.1 % (1.7-9.3); % Neutrophils 88.9 % (42.2-75.2); Absolute Basophils 0.1 10^3/uL (0-0.2); Absolute Eosinophils 0.1 10^3/uL (0-0.7); Absolute Immature Granulocytes 0.2 10^3/uL (0-0.05); Absolute Lymphocytes 0.6 10^3/uL (1.2-3.4); Absolute Monocytes 1.1 10^3/uL (0.1-0.6); Absolute Neutrophils 15.7 10^3/uL (1.4-6.5); Nucleated Red Blood Cells % 0 %; Platelet Count 605 10^3/uL (130-400)
[2024-06-24 18:01] LABS: Anisocytosis 2+; Hypochromasia 2+; Macrocytosis 3+; Normal RBC Morphology No; Stomatocytes Occasional; Target Cells Occasional
[2024-06-24] MEDS: ZOSYN 50 IV (18:58)
[2024-06-24 19:00] VITALS: BMI 18.1
[2024-06-24] MEDS: LASIX 40 MG IV (19:02)
--- NOTE | 2024-06-24 20:03 | HPS.HSE ---
Family Physician
-
Family Physician: Ebony Haynes
Chief Complaint
-
RLE swelling and redness
History of Present Illness
Patient is a 78y F with PMH significant for bronchiectasis, ILD, COPD and chronic hypoxemia who presents to ED complaining of RLE pain, swelling and redness for about one week. Patient states that symptoms happened 'overnight' and have been
persistent since. She has pain with standing / ambulating and tenderness on exam from the ankle to the knee. There is no evident wound / skin breakdown. Patient denies any fevers / chills, N/V/D, etc. Patient denies any recent injury, fall or
trauma.
She was last admitted here in 05/2024 with cough / pneumonia. She was discharged to [facility] for rehab and has been staying at [facility].
Patient complains of chronic / ongoing issues with insomnia, poor appetite, depression and ongoing cough / dyspnea.
Medical History
Past Medical History
Past Medical History: Reports Other
Additional Past Medical History:
Bronchiectasis
Chronic Hypoxemic Respiratory Insufficiency
Paroxysmal Atrial Fibrillation
History of DVT / PE
Iron Deficiency Anemia
LBBB
Skin Cancer
History of Aspergillosis
Past Surgical History: Reports Other
Additional Past Surgical History:
Left Tibia ORIF
Cholecystectomy
Bilateral TKA
Left Hip ORIF
SAGE / DCCV
Cystoscopy / Ureteral Stent
Social History
Tobacco: Non-smoker
Alcohol: None
Drug: None
Living: Alone
Family History
Family History: Not pertinent
Allergies / Home Medications
Allergies reflects when Allergies were last updated in [employer].
Home Medications with original date entered in [employer]
Allergy/Medication List:
Allergies
Allergy/AdvReac Type Severity Reaction Status Date / Time
No Known Allergies Allergy Verified 06/24/24 16:20
Home Medications
calcium carbonate 600 mg PO DAILY Supplement 04/15/19
rosuvastatin 20 mg tablet 20 mg PO HS High cholesterol 04/15/19
amiodarone 200 mg tablet (Pacerone) 200 mg PO DAILY heart condition 05/27/19
guaifenesin 600 mg tablet, extended release 12 hr (Mucus Relief ER) 1,200 mg PO [id number] PRN cough,congestion 05/27/19
pantoprazole 40 mg tablet,delayed release 40 mg PO DAILY #30 tabs 12/30/19
furosemide 40 mg tablet 40 mg PO DAILY Fluid retention/Swelling 04/19/21
alendronate 70 mg tablet 70 mg PO WE 05/22/24
apixaban 5 mg tablet (Eliquis) 5 mg PO BID Blood Clot Prevention/Tx 05/22/24
wvdwkost-zqc-ijyef acid 0.4 mg-lycopene 300 mcg-lutein 250 mcg tablet (CertaVite Senior) 1 tab PO DAILY Supplement 05/22/24
acetaminophen 325 mg tablet 650 mg (2 x 325 mg) PO Q4HPRN PRN Mild Pain / Temp > 101 #30 tabs 05/30/24
budesonide 0.5 mg/2 mL suspension for nebulization 0.5 mg (2 mL) inhalation R BID #0 mL 05/30/24
ipratropium 0.5 mg-albuterol 3 mg (2.5 mg base)/3 mL nebulization soln 3 ml inhalation R BID #0 mL 05/30/24
metoprolol succinate 50 mg tablet,extended release 24 hr 50 mg PO DAILY Heart Disease/Condition #0 tabs 05/30/24
benzonatate 200 mg capsule 200 mg PO TIDPRN PRN cough 06/24/24
clonazepam 0.5 mg tablet 0.25 mg PO HS 06/24/24
magnesium hydroxide 400 mg/5 mL oral suspension (Milk of Magnesia) 30 ml PO DAILYPRN PRN constipation 06/24/24
melatonin 5 mg tablet 5 mg PO HS 06/24/24
Review of Systems
-
History Source: Patient
A 12 point ROS was completed and negative except as noted: Yes
Constitutional: Reports Fatigue; Denies Fever or Chills
EENT: Denies Sore Throat
Respiratory: Reports Cough and Trouble Breathing; Denies Hemoptysis
Cardiac: Denies Chest Pain or Palpitations
Abdomen/GI: Reports Anorexia; Denies Abdominal Pain, Nausea, Vomiting or Diarrhea
: Denies Dysuria, Frequency or Flank Pain
Musculoskeletal: Reports Edema; Denies Joint Pain
Skin: Reports Other (Redness / Pain)
Neurological: Denies Dizzy or Headache
Psych: Reports Depression
Physical Exam
Vital Signs
Vital Signs
Temp Pulse Resp BP Pulse Ox
98.1 F 87 22 104/42 98
06/24/24 16:20 06/24/24 19:02 06/24/24 16:20 06/24/24 16:20 06/24/24 16:20
Physical Exam
General: Other (78y F in no acute distress.)
HEENT: Moist mucous membranes and PERRLA
Respiratory: Other (Decreased BS throughout. No wheezes / rales / rhonchi.)
Cardiac: S1/S2, Regular Rhythm and Murmur (III/ LEE)
GI: Soft, Non Tender, Non Distended and Normal Bowel Sounds
Musculoskeletal: Other (RLE erythema, increased warmth and tenderness from the ankle to the knee. No wound / skin breakdown. Less erythema / edema appreciated on the LLE)
Neuro: AO x 3
Laboratory Results
-
06/24/24 16:35
06/24/24 16:35
Laboratory Results
Total Bilirubin 0.1 mg/dl (0.2-1.3) L 06/24/24 16:35
AST 29 U/L (14-36) 06/24/24 16:35
ALT 28 U/L (0-35) 06/24/24 16:35
Alkaline Phosphatase 191 U/L (38-126) H 06/24/24 16:35
Impression/Plan
-
A/P: Patient is a 78y F with PMH significant for COPD, bronchiectasis and chronic hypoxemia who presents to ED complaining of RLE pain, swelling and redness.
RLE Cellulitis
- Admit for further evaluation and treatment.
- Asymmetric edema, erythema and increased warmth.
- IV abx with Ancef for now and follow for clinical improvement.
- Supportive care / pain control / etc.
COPD
Chronic Bronchiectasis
ILD
Chronic Hypoxemic Respiratory Insufficiency
- Stable. Chronic symptoms of cough / dyspnea - no acute changes.
- Continue current inhaled medication regimen.
- ? benefit to daily azithromycin or doxycycline.
- Continue usual O2 supplementation - SpO2 adequate.
- Acapella / Chest PT.
- Follow for any changes.
Chronic HFpEF
- Patient does not appear grossly volume overloaded - despite asymmetric LE edema.
- BNP is lower than usual.
- One dose of IV Lasix given in the ED.
- Continue usual PO dose of Lasix for now.
- Follow I/Os, daily weights, etc.
Paroxysmal Atrial Fibrillation
- Stable. Continue metoprolol and Eliquis.
Iron Deficiency Anemia
Leukocytosis
Thrombocytosis
- Chronic leukocytosis. No fever or other new symptoms.
- Receives intermittent iron infusions / followed by Hematology.
- Hgb appears higher than typical baseline at present.
- ? other underlying hematologic process given chronic leukocytosis and thrombocytosis as well.
- Follow-up with Hematology as an outpatient.
- Follow cell counts for changes.
Dysphagia
- Patient placed on pureed diet during her last admission here.
- ? chronic / recurrent aspiration adding to pulmonary issues?
- Appetite has been poor since that time - at least in part due to restrictions.
- Speech re-eval during stay.
DVT Prophylaxis: On Eliquis. US ordered to rule out RLE DVT given asymmetric edema.
Code Status: DNR
[2024-06-24 21:55] VITALS: BP 109/61
[2024-06-24] MEDS: VANCOCIN 275 MG IV (23:35)
[2024-06-25] VITALS (24 sets, daily range): BP systolic 100–155; BP diastolic 44–108; PULSE 79–80; O2SAT 99; BMI 18.1
[2024-06-25] MEDS: ELIQUIS 5 MG PO ×3 (00:40→21:27)
[2024-06-25] MEDS: REMERON 15 MG PO ×2 (00:40→21:27)
[2024-06-25] MEDS: ANCEF 10 IV ×3 (00:41→18:43)
[2024-06-25] MEDS: MELATONIN 5 MG PO (00:41)
[2024-06-25] MEDS: DUONEB 3 ML INH ×3 (01:02→19:47)
[2024-06-25] MEDS: CRESTOR 20 MG PO ×2 (01:03→21:27)
[2024-06-25 06:44] LABS: Hematocrit 31.6 % (37.0-47.0); Hemoglobin 9.9 g/dL (12.0-16.0); Mean Corp Hgb Conc. 31.3 g/dL (33.0-37.0); Mean Corpuscular Hgb 26.8 pg (27.0-31.0); Mean Corpuscular Volume 85.4 fL (81.0-99.0); Mean Platelet Volume 9.3 fL (7.4-10.4); Platelet Count 506 10^3/uL (130-400); Red Cell Dist. Width 21.9 % (11.5-14.5); White Blood Cell Count 14.1 10^3/uL (4.8-10.8)
[2024-06-25 07:04] LABS: Blood Urea Nitrogen 18 mg/dl (7-17); Carbon Dioxide 37 mmol/L (22-30); Chloride 99 mmol/L (98-107); Estimated Creatinine Clearance 64 ml/min; Glucose 72 mg/dl (70-99); Potassium 3.6 mmol/L (3.5-5.1); Sodium 144 mmol/L (135-145); eGFR > 60.00
[2024-06-25] MEDS: PULMICORT 0.5 MG INH ×2 (08:13→19:47)
[2024-06-25] MEDS: PROTONIX 40 MG PO (09:07)
[2024-06-25] MEDS: PACERONE 200 MG PO (09:07)
[2024-06-25] MEDS: LASIX 40 MG PO (09:09)
[2024-06-25] MEDS: TOPROL XL 50 MG PO (09:09)
[2024-06-25] MEDS: TYLENOL 650 MG PO (09:28)
--- NOTE | 2024-06-25 12:22 | PTOTSP ---
Speech Language Pathology Evaluation
Initial ST assessment completed at bedside. P.O. trials of soft solids, puree solids, and thin liquids provided. Patient known to ST service with recent VSE 05/23/2024 revealing mild pharyngeal dysphagia with dysphagia likely chronic due to
respiratory/pulmonary status. No aspiration noted on VSE. At bedside, oral phase appeared functional with no overt signs/symptoms of aspiration observed across trials with no respiratory distress/SOB.
Recommend:
1) IDDSI level 5 solid diet (minced/moist), thin liquids
2) Aspiration precautions: upright positioning; Small single sips/bites; Slow rate of intake; small single sips; small bites; alternate textures; NO PO intake if SOB/coughing Take breaks during meals for breathing; partial supervision/assistance;
monitor CXR/labs and lung sounds
3) Oral care 3x/day
4) ST to follow and monitor diet tolerance
Discussed recommendations with RN and MD
--- NOTE | 2024-06-25 14:18 | W.PN.HOSP.TC ---
Today's Communication/Plan
-
cont iv abx
Assessment / Plan
Assessment / Plan
General: Appears chronically ill, no acute distress
HEENT: Normocephalic, Atraumatic, EOMI, MMM
Respiratory: Scattered Rales
Cardiac: Normal S1/S2, Regular Rate and Rhythm
GI: Soft, Nontender, Nondistended, Normal Bowel Sounds
Extremities: No Clubbing, Cyanosis; RLE erythema
Bilateral lower extremity edema noted
Neuro: Nonfocal/Grossly Intact
Psych: Calm, Cooperative
#RLE Cellulitis
-cont cefazolin
-monitor for response
chronic hypoxic and hypercapnic respiratory failure, wears 5 L at home
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
-should f/u with pulm outpatient
-stable here
�Appreciate speech eval�IDD SI 5
-Cont home inhalers
Chronic HFpEF
� Continue Lasix
#Anxiety
Klonopin 0.25 mg at bedtime
#Paroxysmal Atrial Fibrillation
-BB, Amiodarone
- Continue Eliquis for stroke risk reductions.
History of DVT / PE
DVT Prophylaxis
- Continue Eliquis.
Code Status: DNR
Anticipated Discharge: 24 - 48 hours
Subjective/Interval History
-
Date of Service: June 25, 2024
no acute events overnight
Objective Data
-
Labs:
Laboratory Results
06/25/24
06:21
WBC 14.1 H
Hgb 9.9 L
Hct 31.6 L
Plt Count 506 H
Sodium 144
Potassium 3.6
Chloride 99
Carbon Dioxide 37 H
BUN 18 H
Creatinine 0.6
Glucose 72
Calcium 8.0 L
Vital Signs:
Vital Signs
Temp Pulse Resp BP Pulse Ox
98.3 F 73 18 100/50 95
06/25/24 13:08 06/25/24 13:08 06/25/24 13:08 06/25/24 13:08 06/25/24 13:21
Review of Systems
-
History Source: Patient
All other systems: Not reviewed unless documented
Data Reviewed
-
Diagnostic Radiology: Image personally visualized and interpreted and Report Reviewed by me
Ultrasound: Image personally visualized and interpreted and Report Reviewed by me
Labs: Labs Reviewed by me
[2024-06-25] MEDS: ANCEF IV (17:24)
[2024-06-26] MEDS: ANCEF 10 IV ×3 (02:38→17:04)
[2024-06-26 03:30] VITALS: BP 116/60
[2024-06-26 03:44] VITALS: BMI 17.0
[2024-06-26 07:10] VITALS: BP 118/58
[2024-06-26 08:03] LABS: Hematocrit 33.8 % (37.0-47.0); Hemoglobin 10.2 g/dL (12.0-16.0); Mean Corp Hgb Conc. 30.2 g/dL (33.0-37.0); Mean Corpuscular Hgb 26.3 pg (27.0-31.0); Mean Corpuscular Volume 87.1 fL (81.0-99.0); Mean Platelet Volume 9.3 fL (7.4-10.4); Platelet Count 556 10^3/uL (130-400); Red Blood Cell Count 3.88 10^6/uL (4.20-5.40); Red Cell Dist. Width 21.9 % (11.5-14.5); White Blood Cell Count 13.6 10^3/uL (4.8-10.8)
[2024-06-26 08:15] LABS: ALT (SGPT) 14 U/L (0-35); AST (SGOT) 24 U/L (14-36); Albumin 2.8 g/dl (3.5-5.0); Alkaline Phosphatase 158 U/L (38-126); Blood Urea Nitrogen 21 mg/dl (7-17); Calcium 8.5 mg/dl (8.4-10.2); Chloride 98 mmol/L (98-107); Estimated Creatinine Clearance 60 ml/min; Glucose 76 mg/dl (70-99); Potassium 3.7 mmol/L (3.5-5.1); Sodium 143 mmol/L (135-145); Total Bilirubin < 0.1 mg/dl (0.2-1.3); Total Protein 5.6 g/dl (6.3-8.2); eGFR > 60.00
[2024-06-26 08:25] LABS: Carbon Dioxide 35 mmol/L (22-30)
[2024-06-26] MEDS: PULMICORT 0.5 MG INH ×2 (08:31→20:12)
[2024-06-26] MEDS: DUONEB 3 ML INH ×2 (08:31→20:13)
[2024-06-26] MEDS: LASIX 40 MG PO (08:50)
[2024-06-26] MEDS: PROTONIX 40 MG PO (08:50)
[2024-06-26] MEDS: TOPROL XL 50 MG PO (08:50)
[2024-06-26] MEDS: PACERONE 200 MG PO (08:50)
[2024-06-26] MEDS: ELIQUIS 5 MG PO ×2 (08:50→21:28)
[2024-06-26 11:00] VITALS: BP 93/49
[2024-06-26 11:12] VITALS: BMI 17.0
--- NOTE | 2024-06-26 13:15 | PN.CDI ---
CDI
- -
CDI:
Physician Documentation Request
Admit Date: 06/24/24 20:17
Dear Doctor Lizett,
Please review the following and provide your response in the progress notes.
Clinical Indicators:
Human Resources Benefits Specialist, 06/26
#CBW (06/26) 105lb 7oz BMI 17 underwt/ht, (06/24) 112lb
#Wt during prior adm- (05/30) 117lb, (05/29) 116lb, (05/22) 119lb.
#...Significant 14lb 13.3% significant weight loss x past 1 month.
#...meets criteria for severe protein calorie malnutrition of chronic illness
#...with >5% wt loss over 1 month,
#...po intake meeting <75% estimated needs over 1 month,
#...moderate loss muscle and subcutaneous fat.
Based on the above information and your assessment, which of the following most accurately represents the patient's nutritional status?
Severe protein calorie malnutrition of chronic illness
Other (please specify)
[place] Criteria (ACP Hospitalist 2017)
2 or more criteria must be present for either
non severe or severe malnutrition
Note that the criteria differs related to the
presence of an acute or chronic illness
Chronic Illness
Energy Intake Non Severe: <75% for >1 month
Severe: <75% for >1 month
Weight Loss Non Severe: 5% over 1 month
7.5% over 3 months
10% over 6 months
20% over 1 year
Severe: >5% over 1 month
>7.5% over 3 months
>10% over 6 months
>20% over 1 year
Body Fat Non Severe: Mild Loss
Severe: Severe Loss
Use of terms such as suspected, likely, concern for, or probable (associated with a specific diagnosis that is being evaluated, monitored, or treated as if it exists) are acceptable and can be coded in the inpatient setting, when documented at the
time of discharge.
Thank you,
Alena Gallegos RN BSN CCDS
CDI Specialist
please contact via tiger text
Please use your independent medical judgment in providing your response.
--- NOTE | 2024-06-26 15:02 | W.PN.HOSP.TC ---
Today's Communication/Plan
-
monitor on cefazolin
mrsa pcr
Assessment / Plan
Assessment / Plan
General: Appears chronically ill, no acute distress
HEENT: Normocephalic, Atraumatic, EOMI, MMM
Respiratory: Scattered Rales
Cardiac: Normal S1/S2, Regular Rate and Rhythm
GI: Soft, Nontender, Nondistended, Normal Bowel Sounds
Extremities: No Clubbing, Cyanosis; RLE erythema
Bilateral lower extremity edema noted and improved but rle erythema worsened
Neuro: Nonfocal/Grossly Intact
Psych: Calm, Cooperative
#RLE Cellulitis
-cont cefazolin
-monitor for response - if continued erythema tomorrow, will switch to vancomycin
-F/u MRSA swab
chronic hypoxic and hypercapnic respiratory failure, wears 5 L at home
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
-should f/u with pulm outpatient
-stable here
�Appreciate speech eval�IDD SI 5
-Cont home inhalers
Chronic HFpEF
� Continue Lasix
Iron Deficiency Anemia
Leukocytosis
Thrombocytosis
- Chronic leukocytosis. No fever or other new symptoms.
- Receives intermittent iron infusions / followed by Hematology.
- Hgb appears higher than typical baseline at present.
- ? other underlying hematologic process given chronic leukocytosis and thrombocytosis as well.
- Follow-up with Hematology as an outpatient.
- Follow cell counts for changes.
#Anxiety
Klonopin 0.25 mg at bedtime
#Paroxysmal Atrial Fibrillation
-BB, Amiodarone
- Continue Eliquis for stroke risk reductions.
ysphagia
- Patient placed on pureed diet during her last admission here.
- ? chronic / recurrent aspiration adding to pulmonary issues?
- Appetite has been poor since that time - at least in part due to restrictions.
- Speech re-eval during stay.
History of DVT / PE
DVT Prophylaxis
- Continue Eliquis.
Code Status: DNR
Anticipated Discharge: Within 24 hours
Subjective/Interval History
-
Date of Service: June 26, 2024
edema improved but erythema worsened
Objective Data
-
Labs:
Laboratory Results
06/26/24
07:28
WBC 13.6 H
Hgb 10.2 L
Hct 33.8 L
Plt Count 556 H
Sodium 143
Potassium 3.7
Chloride 98
Carbon Dioxide 35 H
BUN 21 H
Creatinine 0.6
Glucose 76
Calcium 8.5
Total Bilirubin < 0.1 L
AST 24
ALT 14
Alkaline Phosphatase 158 H
Vital Signs:
Vital Signs
Temp Pulse Resp BP Pulse Ox
97.6 F 80 16 93/49 95
06/26/24 11:00 06/26/24 11:00 06/26/24 11:00 06/26/24 11:00 06/26/24 11:00
I&O
06/25/24 06/26/24 06/27/24
06:59 06:59 06:59
Intake Total 840 / 840
Balance 840 / 840
Review of Systems
-
History Source: Patient
All other systems: Not reviewed unless documented
Data Reviewed
-
Diagnostic Radiology: Image personally visualized and interpreted and Report Reviewed by me
Ultrasound: Image personally visualized and interpreted and Report Reviewed by me
Labs: Labs Reviewed by me
[2024-06-26 15:11] VITALS: BP 113/61
--- NOTE | 2024-06-26 15:59 | PTOTSP ---
ST Follow-Up
Pt currently presents with oral, pharyngeal, and esophageal parameters that are WFL for all PO intake.
Recommendations:
- Upgrade to regular solids, thin liquids, meds as tolerated.
- General aspiration precautions.
- LATCHER to f/u to ensure pt is safely tolerating diet upgrade.
--- NOTE | 2024-06-26 16:20 | CM ---
tire manager reviewed patient's chart and met with patient and patient states that she resides at [facility] assisted Living, patient is independent with adl's and uses a walker with ambulation, patient requires oxygen but patient is not sure of
which company that she gets her oxygen from. [facility] Patient states her is in a longterm, [facility].
Plan; with [facility]
[phone]
--- NOTE | 2024-06-26 17:10 | PTCARENOTE ---
06/26- patient's son Sage was at Nurse's Station escalated, stating, 'Who is the best person to speak to about my mother? She's been here 3 days, and I've heard from no one. I don't know why she's here or what you're doing for her or when she's
leaving.' This RN was able to discuss patient's care, print Reports of Chest Xray, Vascular US and past visit Barium Swallow for him as well as discuss the Hospitalist notes. Using Validation and discussing patient's care, this RN was able to
de-escalate son. He stated, 'Thank you Syeda, really. You've been really informative, probably more than I could've asked for too.'
[2024-06-26 20:00] VITALS: BP 99/55
[2024-06-26] MEDS: TYLENOL 650 MG PO (21:28)
[2024-06-26] MEDS: REMERON 15 MG PO (21:28)
[2024-06-26] MEDS: CRESTOR 20 MG PO (21:28)
[2024-06-26 23:01] VITALS: BP 109/55
[2024-06-27] MEDS: ANCEF 10 IV ×3 (01:59→17:04)
[2024-06-27] MEDS: TYLENOL 650 MG PO ×2 (02:07→21:24)
[2024-06-27 03:30] VITALS: BP 128/85
[2024-06-27 06:00] VITALS: BMI 17.8
[2024-06-27 07:04] VITALS: BP 120/66
[2024-06-27] MEDS: PULMICORT 0.5 MG INH ×2 (08:02→19:58)
[2024-06-27] MEDS: DUONEB 3 ML INH ×2 (08:02→19:58)
[2024-06-27] MEDS: PROTONIX 40 MG PO (08:14)
[2024-06-27] MEDS: LASIX 40 MG PO (08:14)
[2024-06-27] MEDS: PACERONE 200 MG PO (08:14)
[2024-06-27] MEDS: TOPROL XL 50 MG PO (08:15)
[2024-06-27] MEDS: ELIQUIS 5 MG PO ×2 (08:15→21:22)
[2024-06-27 08:38] LABS: Hematocrit 32.3 % (37.0-47.0); Hemoglobin 9.7 g/dL (12.0-16.0); Mean Corpuscular Hgb 26.2 pg (27.0-31.0); Mean Corpuscular Volume 87.3 fL (81.0-99.0); Mean Platelet Volume 9.6 fL (7.4-10.4); Platelet Count 548 10^3/uL (130-400); Red Cell Dist. Width 21.5 % (11.5-14.5)
[2024-06-27 09:50] LABS: ALT (SGPT) 12 U/L (0-35); AST (SGOT) 24 U/L (14-36); Albumin 2.8 g/dl (3.5-5.0); Alkaline Phosphatase 157 U/L (38-126); Blood Urea Nitrogen 22 mg/dl (7-17); Calcium 8.6 mg/dl (8.4-10.2); Carbon Dioxide 37 mmol/L (22-30); Chloride 96 mmol/L (98-107); Estimated Creatinine Clearance 63 ml/min; Glucose 74 mg/dl (70-99); Potassium 3.6 mmol/L (3.5-5.1); Sodium 142 mmol/L (135-145); Total Bilirubin < 0.1 mg/dl (0.2-1.3); Total Protein 5.6 g/dl (6.3-8.2); eGFR > 60.00
[2024-06-27 12:37] VITALS: BP 102/55; O2SAT 94
--- NOTE | 2024-06-27 15:32 | W.PN.HOSP.TC ---
Today's Communication/Plan
-
monitor on cefazolin
anticipate dc kanu
Assessment / Plan
Assessment / Plan
General: Appears chronically ill, no acute distress
HEENT: Normocephalic, Atraumatic, EOMI, MMM
Respiratory: Scattered Rales
Cardiac: Normal S1/S2, Regular Rate and Rhythm
GI: Soft, Nontender, Nondistended, Normal Bowel Sounds
Extremities: No Clubbing, Cyanosis; RLE erythema
Bilateral lower extremity edema noted and improved but rle erythema worsened
Neuro: Nonfocal/Grossly Intact
Psych: Calm, Cooperative
#Sepsis, POA
#RLE Cellulitis
-cont cefazolin
-monitor for response - improvement in erythema
-MRSA swab negative
chronic hypoxic and hypercapnic respiratory failure, wears 5 L at home
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
-should f/u with pulm outpatient
-stable here
�Appreciate speech eval�IDD SI 5
-Cont home inhalers
Chronic HFpEF
� Continue Lasix
Iron Deficiency Anemia
Leukocytosis
Thrombocytosis
- Chronic leukocytosis. No fever or other new symptoms.
- Receives intermittent iron infusions / followed by Hematology.
- Hgb appears higher than typical baseline at present.
- ? other underlying hematologic process given chronic leukocytosis and thrombocytosis as well.
- Follow-up with Hematology as an outpatient.
- Follow cell counts for changes.
#Anxiety
Klonopin 0.25 mg at bedtime
#Paroxysmal Atrial Fibrillation
-BB, Amiodarone
- Continue Eliquis for stroke risk reductions.
Dysphagia
- Patient placed on pureed diet during her last admission here.
- ? chronic / recurrent aspiration adding to pulmonary issues?
- Appetite has been poor since that time - at least in part due to restrictions.
- Speech re-eval during stay.
History of DVT / PE
DVT Prophylaxis
- Continue Eliquis.
Code Status: DNR
Anticipated Discharge: Within 24 hours
Subjective/Interval History
-
Date of Service: June 27, 2024
Erythema improving
Objective Data
-
Labs:
Laboratory Results
06/27/24
07:44
WBC 11.0 H
Hgb 9.7 L
Hct 32.3 L
Plt Count 548 H
Sodium 142
Potassium 3.6
Chloride 96 L
Carbon Dioxide 37 H
BUN 22 H
Creatinine 0.6
Glucose 74
Calcium 8.6
Total Bilirubin < 0.1 L
AST 24
ALT 12
Alkaline Phosphatase 157 H
Vital Signs:
Vital Signs
Temp Pulse Resp BP Pulse Ox
97.5 F 63 16 120/66 97
06/27/24 07:04 06/27/24 08:09 06/27/24 08:09 06/27/24 07:04 06/27/24 08:15
I&O
06/26/24 06/27/24 06/28/24
06:59 06:59 06:59
Intake Total 840 / 840 240 / 240
Balance 840 / 840 240 / 240
Review of Systems
-
History Source: Patient
All other systems: Not reviewed unless documented
Data Reviewed
-
Diagnostic Radiology: Image personally visualized and interpreted and Report Reviewed by me
Ultrasound: Image personally visualized and interpreted and Report Reviewed by me
Labs: Labs Reviewed by me
[2024-06-27 15:52] VITALS: BP 121/59
[2024-06-27] MEDS: CRESTOR 20 MG PO (21:21)
[2024-06-27] MEDS: REMERON 15 MG PO (21:22)
[2024-06-27 23:30] VITALS: BP 119/56
[2024-06-28] MEDS: MELATONIN 5 MG PO (01:01)
[2024-06-28] MEDS: ANCEF 10 IV ×3 (01:01→17:46)
[2024-06-28 06:00] VITALS: BMI 18.2
[2024-06-28 07:27] VITALS: BP 125/52
[2024-06-28] MEDS: DUONEB 3 ML INH (07:33)
[2024-06-28] MEDS: PULMICORT 0.5 MG INH (07:33)
[2024-06-28 08:30] LABS: Hematocrit 32.3 % (37.0-47.0); Hemoglobin 9.8 g/dL (12.0-16.0); Mean Corp Hgb Conc. 30.3 g/dL (33.0-37.0); Mean Corpuscular Hgb 26.4 pg (27.0-31.0); Mean Corpuscular Volume 87.1 fL (81.0-99.0); Mean Platelet Volume 9.4 fL (7.4-10.4); Platelet Count 548 10^3/uL (130-400); Red Blood Cell Count 3.71 10^6/uL (4.20-5.40); Red Cell Dist. Width 21.4 % (11.5-14.5); White Blood Cell Count 13.7 10^3/uL (4.8-10.8)
[2024-06-28 09:03] LABS: ALT (SGPT) < 10 U/L (0-35); AST (SGOT) 26 U/L (14-36); Albumin 2.9 g/dl (3.5-5.0); Alkaline Phosphatase 163 U/L (38-126); Blood Urea Nitrogen 19 mg/dl (7-17); Calcium 8.8 mg/dl (8.4-10.2); Carbon Dioxide 35 mmol/L (22-30); Chloride 98 mmol/L (98-107); Estimated Creatinine Clearance 64 ml/min; Glucose 78 mg/dl (70-99); Potassium 3.7 mmol/L (3.5-5.1); Sodium 143 mmol/L (135-145); Total Bilirubin < 0.1 mg/dl (0.2-1.3); Total Protein 5.7 g/dl (6.3-8.2); eGFR > 60.00
[2024-06-28] MEDS: ELIQUIS 5 MG PO (09:07)
[2024-06-28] MEDS: LASIX 40 MG PO (09:07)
[2024-06-28] MEDS: PACERONE 200 MG PO (09:08)
[2024-06-28] MEDS: PROTONIX 40 MG PO (09:08)
[2024-06-28] MEDS: TOPROL XL 50 MG PO (09:08)
--- NOTE | 2024-06-28 11:39 | CM ---
Addendum entered by Rekha Marie 06/28/24 13:24:
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
to physician he is asking that PCP order w/c for patient, son made aware, bottle caser reached out to regarding dinner for today.
Original Note:
Patient is for possible discharge today back to Assisted Living, son to transport, patient has her own oxygen in room.
[phone]
--- NOTE | 2024-06-28 12:28 | W.PN.HOSP.TC ---
Addendum entered and electronically signed by Marlo Phoenix MD 06/29/24 17:10:
[id number]
Addendum entered and electronically signed by Marlo Phoenix MD 06/29/24 16:22:
Severe protein calorie malnutrition of chronic illness
Original Note:
Today's Communication/Plan
-
-cefazolin - can transition to cephalexin 500 mg 4 times daily for additional 7 days to complete 10-day course
F/u CBC outpatient, hematology for chronically elevated wbc
F/u PCP, hematology outpatient
Assessment / Plan
Assessment / Plan
General: Appears chronically ill, no acute distress
HEENT: Normocephalic, Atraumatic, EOMI, MMM
Respiratory: Scattered Rales
Cardiac: Normal S1/S2, Regular Rate and Rhythm
GI: Soft, Nontender, Nondistended, Normal Bowel Sounds
Extremities: No Clubbing, Cyanosis; RLE erythema
Bilateral lower extremity edema noted and improved; RLE erythema greatly improved
Neuro: Nonfocal/Grossly Intact
Psych: Calm, Cooperative
#Sepsis, POA
#RLE Cellulitis
-cefazolin - can transition to cephalexin 500 mg 4 times daily for additional 7 days to complete 10-day course
-MRSA swab negative
�Follow-up PCP outpatient
chronic hypoxic and hypercapnic respiratory failure, wears 5 L at home
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
-should f/u with pulm outpatient
-stable here
�Appreciate speech eval�IDD SI 5
-Cont home inhalers
Follow-up pulmonary outpatient as scheduled, son says he is scheduling appointment
Chronic HFpEF
� Continue Lasix
Iron Deficiency Anemia
Leukocytosis
Thrombocytosis
- Chronic leukocytosis. No fever or other new symptoms.
- Receives intermittent iron infusions / followed by Hematology.
- Hgb appears higher than typical baseline at present.
- ? other underlying hematologic process given chronic leukocytosis and thrombocytosis as well.
- Follow-up with Hematology as an outpatient.
- Follow cell counts for changes. Remains afebrile here
#Anxiety
Klonopin 0.25 mg at bedtime
#Paroxysmal Atrial Fibrillation
-BB, Amiodarone
- Continue Eliquis for stroke risk reductions.
Dysphagia
- Patient placed on pureed diet during her last admission here.
- Appetite has been poor since that time - at least in part due to restrictions.
- Speech re-eval during stay: Upgrade to regular solids, thin liquids, meds as tolerated.
- General aspiration precautions.
History of DVT / PE
DVT Prophylaxis
- Continue Eliquis.
Code Status: DNR
More than 30 minutes spent in discharge including
Final examination of the patient
Summarizing hospital stay
Instructions for continuing care to all relevant caregivers
Preparation of discharge records, prescriptions, and referral forms
Total time spent (35 in minutes):
Anticipated Discharge: Today
Subjective/Interval History
-
Date of Service: June 28, 2024
erythema greatly improved
Objective Data
-
Labs:
Laboratory Results
06/28/24
07:45
WBC 13.7 H
Hgb 9.8 L
Hct 32.3 L
Plt Count 548 H
Sodium 143
Potassium 3.7
Chloride 98
Carbon Dioxide 35 H
BUN 19 H
Creatinine 0.6
Glucose 78
Calcium 8.8
Total Bilirubin < 0.1 L
AST 26
ALT < 10
Alkaline Phosphatase 163 H
Vital Signs:
Vital Signs
Temp Pulse Resp BP Pulse Ox
98.1 F 67 16 125/52 98
06/28/24 07:27 06/28/24 07:36 06/28/24 07:36 06/28/24 07:27 06/28/24 09:15
I&O
06/27/24 06/28/24 06/29/24
06:59 06:59 06:59
Intake Total 240 / 240 900 / 900
Balance 240 / 240 900 / 900
Review of Systems
-
History Source: Patient
All other systems: Not reviewed unless documented
Data Reviewed
-
Diagnostic Radiology: Image personally visualized and interpreted and Report Reviewed by me
Ultrasound: Image personally visualized and interpreted and Report Reviewed by me
Labs: Labs Reviewed by me
--- NOTE | 2024-06-28 12:35 | W.DS.TRANS ---
DC Summary - Band Tumbler
-
Discharge Instructions:
Sleep Apnea Risk Low
Discharge Diagnosis/Procedures #Sepsis, POA
#RLE Cellulitis
Diet Low Cholesterol,Low Fat,Restrict fluids to 48 oz
,2 Gram Sodium
Activity As tolerated
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
/PCP
Instructions:
Stand-Alone Forms:
Changes to Home Medications: Yes
Discharge Medications:
DC Medications w/original date entered in [facility]
calcium carbonate 600 mg PO DAILY Supplement 04/15/19
rosuvastatin 20 mg tablet 20 mg PO HS High cholesterol 04/15/19
amiodarone 200 mg tablet (Pacerone) 200 mg PO DAILY heart condition 05/27/19
guaifenesin 600 mg tablet, extended release 12 hr (Mucus Relief ER) 1,200 mg PO [id number] PRN cough,congestion 05/27/19
pantoprazole 40 mg tablet,delayed release 40 mg PO DAILY #30 tabs 12/30/19
furosemide 40 mg tablet 40 mg PO DAILY Fluid retention/Swelling 04/19/21
alendronate 70 mg tablet 70 mg PO WE 05/22/24
apixaban 5 mg tablet (Eliquis) 5 mg PO BID Blood Clot Prevention/Tx 05/22/24
oeapuqpm-gih-fqust acid 0.4 mg-lycopene 300 mcg-lutein 250 mcg tablet ([employer]ite Senior) 1 tab PO DAILY Supplement 05/22/24
acetaminophen 325 mg tablet 650 mg (2 x 325 mg) PO Q4HPRN PRN Mild Pain / Temp > 101 #30 tabs 05/30/24
budesonide 0.5 mg/2 mL suspension for nebulization 0.5 mg (2 mL) inhalation R BID #0 mL 05/30/24
ipratropium 0.5 mg-albuterol 3 mg (2.5 mg base)/3 mL nebulization soln 3 ml inhalation R BID #0 mL 05/30/24
metoprolol succinate 50 mg tablet,extended release 24 hr 50 mg PO DAILY Heart Disease/Condition #0 tabs 05/30/24
benzonatate 200 mg capsule 200 mg PO TIDPRN PRN cough 06/24/24
clonazepam 0.5 mg tablet 0.25 mg PO HS 06/24/24
magnesium hydroxide 400 mg/5 mL oral suspension (Milk of Magnesia) 30 ml PO DAILYPRN PRN constipation 06/24/24
melatonin 5 mg tablet 5 mg PO HS 06/24/24
cephalexin 500 mg capsule 500 mg PO QID 7 days #28 caps 06/28/24
mirtazapine 15 mg tablet 15 mg PO HS #0 tabs 06/28/24
Home Medication Changes
cephalexin 500 mg capsule 500 mg PO QID 7 days #28 caps 06/28/24
Pending Results: No
[2024-06-28 15:25] VITALS: BP 105/51
== END 2024-06-28 18:30 | disposition home or self-care (01) | DRG 871 ==
LOC: 4 WEST ACU 20:17
PROVIDERS: Physician Assistant; ADMITTING PHYSICIAN Hospitalist; ATTENDING PHYSICIAN Internal Medicine; EMERGENCY PHYSICIAN Student in an Organized Health Care Education/Training Program; FAMILY PHYSICIAN Internal Medicine
DX: A41.9 Sepsis, unspecified organism (principal); E43 Unspecified severe protein-calorie malnutrition; Z68.1 Body mass index [BMI] 19.9 or less, adult; L03.115 Cellulitis of right lower limb; I50.32 Chronic diastolic (congestive) heart failure; J84.9 Interstitial pulmonary disease, unspecified; J96.11 Chronic respiratory failure with hypoxia; J96.12 Chronic respiratory failure with hypercapnia; I11.0 Hypertensive heart disease with heart failure; J43.2 Centrilobular emphysema; D50.9 Iron deficiency anemia, unspecified; F32.A Depression, unspecified; J47.9 Bronchiectasis, uncomplicated; R13.10 Dysphagia, unspecified; Z66 Do not resuscitate; Z99.81 Dependence on supplemental oxygen; D75.839 Thrombocytosis, unspecified; E78.00 Pure hypercholesterolemia, unspecified; G47.00 Insomnia, unspecified; I44.7 Left bundle-branch block, unspecified; I48.0 Paroxysmal atrial fibrillation; Z79.01 Long term (current) use of anticoagulants; Z79.899 Other long term (current) drug therapy; Z87.01 Personal history of pneumonia (recurrent); Z85.828 Personal history of other malignant neoplasm of skin; Z86.718 Personal history of other venous thrombosis and embolism; Z86.711 Personal history of pulmonary embolism; Z90.49 Acquired absence of other specified parts of digestive tract; Z96.653 Presence of artificial knee joint, bilateral
CPT/HCPCS: 71046; 80048; 80053; 83880; 85025; 85027; 87641; 92526; 92610; 93971; 94640; 97116; 97530

== ENCOUNTER → 2024-07-29 16:07 | Outpatient (REF) | payer OTHER, SELFPAY ==
[2024-07-29 15:46] LABS: Reticulocyte Count 1.9 % (0.4-2.8)
[2024-07-29 16:00] LABS: Iron 25 ug/dl (37-170)
[2024-07-29 16:10] LABS: Percent Saturation 10 % (20-50); Total Iron Binding Capacity 250 ug/dl (265-497)
== END ==
LOC: OIDL 16:07
PROVIDERS: ATTENDING PHYSICIAN Internal Medicine Hematology & Oncology
DX: D50.0 Iron deficiency anemia secondary to blood loss (chronic) (principal); D69.3 Immune thrombocytopenic purpura; D75.838 Other thrombocytosis
CPT/HCPCS: 82232; 82728; 82784; 83521; 83540; 83550; 84155; 84165; 85045; 86334

== ENCOUNTER → 2024-11-18 12:31 | Outpatient (REF) | payer OTHER, SELFPAY | LOC: HWRAD 12:31 | PROVIDERS: ATTENDING PHYSICIAN Internal Medicine Critical Care Medicine; FAMILY PHYSICIAN Internal Medicine | DX: J84.9 Interstitial pulmonary disease, unspecified (principal) | CPT/HCPCS: 71250 ==

== ENCOUNTER → 2025-05-26 11:56 | Outpatient (REF) | payer OTHER, SELFPAY | LOC: HWRAD 11:56 | PROVIDERS: ATTENDING PHYSICIAN Internal Medicine Critical Care Medicine; FAMILY PHYSICIAN Internal Medicine | DX: R91.8 Other nonspecific abnormal finding of lung field (principal); J47.9 Bronchiectasis, uncomplicated; R91.1 Solitary pulmonary nodule | CPT/HCPCS: 71250 ==

== ENCOUNTER → 2025-09-07 12:44 | Outpatient (REF) | payer OTHER, SELFPAY | LOC: HWRAD 12:44 | PROVIDERS: ATTENDING PHYSICIAN Internal Medicine; FAMILY PHYSICIAN Internal Medicine | DX: R91.8 Other nonspecific abnormal finding of lung field (principal) | CPT/HCPCS: 71250 ==